=== PATIENT | female | born 1950 | race Caucasian/White ===

== ENCOUNTER → 2017-04-23 | Outpatient (CLI) | payer OTHER ==
[~2017-04-23] MED LIST: CETI10TA84 PO; ERGO1CAP35 PO; NIFE60TA57 PO; POTA10CA28 PO; VALA1TAB PO
== END | disposition home or self-care (01) ==
LOC: C.PAPS 14:54
PROVIDERS: ATTEND Obstetrics & Gynecology
DX: Z12.4 Encounter for screening for malignant neoplasm of cervix (principal)

== ENCOUNTER → 2017-05-30 | Outpatient (CLI) | payer OTHER ==
--- NOTE | 2017-05-31 07:53 | MAMMOGRAPHY REPORT ---
BILATERAL DIGITAL SCREENING MAMMOGRAM TOMOSYNTHESIS WITH CAD: 05/30/2017 CLINICAL HISTORY: Routine screening. Patient has no complaints. TECHNIQUE: Breast tomosynthesis in addition to standard 2D mammography was performed. Current study was also evaluated with a Computer Aided Detection (CAD) system. COMPARISON: Comparison is made to exams dated: 12/01/2015 ultrasound, 12/01/2015 mammogram, 11/17/2015 mammogram, 11/15/2014 ultrasound, 11/15/2014 mammogram, and 11/24/2013 mammogram - [facility]. BREAST COMPOSITION: The tissue of both breasts is heterogeneously dense, which may obscure small mas ses. FINDINGS: No suspicious masses, calcifications, or areas of architectural distortion are noted in ei ther breast. There has been no significant interval change compared to prior exams. Bilateral benign -appearing calcifications are not significantly changed. IMPRESSION: ACR BI-RADS CATEGORY 2: BENIGN There is no mammographic evidence of malignancy. A 1 year screening mammogram is recommended. The pa tient will receive written notification of the results. Approximately 10% of breast cancers are not detected with mammography. A negative mammographic report should not delay biopsy if a clinically suggestive mass is present. Briana Maldonado M.D. ah/:05/30/2017 15:16:05 Certified Professional Ergonomist: Beatrice DONAHUE(Jodi)(Zoraida), [facility] letter sent: Normal 1/2 BI-RADS Code: ACR BI-RADS Category 2: Benign
== END | disposition home or self-care (01) ==
LOC: C.MAMM 14:35
PROVIDERS: ATTEND Obstetrics & Gynecology
DX: Z12.31 Encounter for screening mammogram for malignant neoplasm of breast (principal); Z13.820 Encounter for screening for osteoporosis; M85.852 Other specified disorders of bone density and structure, left thigh; M85.851 Other specified disorders of bone density and structure, right thigh

== ENCOUNTER 2017-06-14 17:47 | Emergency (ER) | payer OTHER ==
[~2017-06-14] VITALS: Ht 162.6 cm; Wt 58.6 kg
[2017-06-14 17:59] VITALS: TEMP 36.6; Ht 162.6 cm; Wt 58.6 kg
--- NOTE | 2017-06-14 18:37 | EMERGENCY ROOM VISIT NOTE ---
History Report prepared by Rich: Marge victoria Under the Supervision of: Dr. Ramón Still M.D. First contact with patient: 18:18 Chief Complaint: LEG PAIN,LEG INJURY Stated Complaint: LEFT LEG VEINS SHOWING REDNESS WITH NODULES History of Present Illness The patient is a 67 year old female who presents to the Emergency Room with complaints of constant left leg pain beginning 3 days ago. The patient states that she has a history of DVT and last had one about 6 years ago. She notes that she was on control and they thought she got the blood clot due to the estrogen she was taking. She reports that she noticed her left leg was red 3 days ago and has had some left leg and foot swelling since then. The patient complains of increased left foot swelling, leg redness, and vein swelling. She denies any chest pain, shortness of breath, recent trips, recent surgery, fever , chills, cough, congestion, nausea, vomiting. The patient notes that she is not on any blood thinners. Source of History: patient Onset: 3 days ago Position: leg (left) Quality: other (swelling) Timing: constant Associated Symptoms: No fevers, No chills, No cough, No chest pain, No SOB, No nausea, No vomiting Note: The patient complains of increased left foot swelling, leg redness, and vein swelling. She denies any recent trips, recent surgery, congestion. Review of Systems See HPI for pertinent positives and negatives. A total of ten systems were reviewed and were otherwise negative. Past Medical & Surgical Medical Problems: (1) Blood clot in vein Family History No pertinent family history stated. Social History Smoking Status: Never Smoker Housing Status: lives with family Occupation Status: employed Current/Historical Medications Scheduled Cephalexin Monohydrate (Cephalexin), 500 MG PO QID Cetirizine (Zyrtec), 10 MG PO DAILY Cholecalciferol (Vitamin D 1000 Unit), 1,000 INTER.UNIT PO DAILY Magnesium Oxide (Mg Supplement (Magnesium), 1 TAB PO DAILY Mupirocin (Bactroban 2% Oint), 1 APPLN TOP UD Nifedipine (Nifedipine Er), 90 MG PO DAILY Potassium Chloride Microencaps (Potassium Chloride Cr), 10 MEQ PO DAILY Scheduled PRN Valacyclovir Hcl (Valtrex), 2 TABS PO [id number] 2 DAYS PRN for FOR BREAKOUTS Allergies Coded Allergies: Estrogens (Verified Allergy, Mild, `, 07/04/14) Bacitracin (Verified Allergy, Unknown, POLYSPORIN, 07/04/14) Polymyxin B (Verified Allergy, Unknown, POLYSPORIN, 07/04/14) Sulfa Drugs (Verified Adverse Reaction, Unknown, `, 07/04/14) Sulfamethoxazole (Verified Adverse Reaction, Unknown, `, 07/04/14) Trimethoprim (Verified Adverse Reaction, Unknown, `, 07/04/14) Physical Exam Vital Signs Date Time Temp Pulse Resp B/P (MAP) Pulse Ox O2 Delivery O2 Flow Rate FiO2 06/14/17 22:29 66 18 100/66 99 06/14/17 21:44 74 18 99 Room Air 06/14/17 20:08 61 18 113/71 99 Room Air 06/14/17 18:46 63 20 115/73 97 Room Air 06/14/17 17:59 36.6 77 18 141/82 95 Room Air Physical Exam GENERAL: Awake, alert, well-appearing, in no distress HENT: Normocephalic, atraumatic. Oropharynx unremarkable. EYES: Normal conjunctiva. Sclera non-icteric. NECK: Supple. No nuchal rigidity. FROM. No JVD. RESPIRATORY: Clear to auscultation. CARDIAC: Regular rate, normal rhythm. Extremities warm and well perfused. Pulses equal. ABDOMEN: Soft, non-distended. No tenderness to palpation. No rebound or guarding. No masses. RECTAL: Deferred. MUSCULOSKELETAL: Chest examination reveals no tenderness. The back is symmetrical on inspection without obvious abnormality. There is no CVA tenderness to palpation. No joint edema. LOWER EXTREMITIES: Bilateral LE varicose veins, left LE has mild swelling in the distal medial thigh with mild redness and tenderness, no crepitus, 1+ edema , distal PMS intact. NEURO: Normal sensorium. No sensory or motor deficits noted. SKIN: No rash or jaundice noted. Medical Decision & Procedures ER Provider Diagnostic Interpretation: Radiology results as stated below per my review and radiologist interpretation: LEFT LOWER EXTREMITY VENOUS DOPPLER FINDINGS: There is normal compressibility, flow, and augmentation within the left lower extremity deep venous system. The left greater saphenous vein from the distal thigh to the mid calf is thrombosed with a a few thrombosis branches of the greater saphenous vein. IMPRESSION: No DVT within the left lower extremity. Left greater saphenous vein thrombosis consistent with a superficial thrombosis. Electronically signed by: Lyle Matos M.D. 06/14/2017 7:57 PM Dictated Date/Time: 06/14/2017 7:56 PM Laboratory Results 06/14/17 18:37 Red Blood Count 4.30, Mean Corpuscular Volume 89.8, Mean Corpuscular Hemoglobin 30.5, Mean Corpuscular Hemoglobin Concent 33.9, Mean Platelet Volume 10.3, Neutrophils (%) (Auto) 52.4, Lymphocytes (%) (Auto) 35.8, Monocytes (%) (Auto) 8.3, Eosinophils (%) (Auto) 3.1, Basophils (%) (Auto) 0.3, Neutrophils # (Auto) 3.51, Lymphocytes # (Auto) 2.40, Monocytes # (Auto) 0.56, Eosinophils # (Auto) 0.21, Basophils # (Auto) 0.02 06/14/17 18:37 Test 06/14/17 18:37 White Blood Count 6.71 K/uL (4.8-10.8) Red Blood Count 4.30 M/uL (4.2-5.4) Hemoglobin 13.1 g/dL (12.0-16.0) Hematocrit 38.6 % (37-47) Mean Corpuscular Volume 89.8 fL (80-100) Mean Corpuscular Hemoglobin 30.5 pg (25-34) Mean Corpuscular Hemoglobin Concent 33.9 g/dl (32-36) Platelet Count 252 K/uL (130-400) Mean Platelet Volume 10.3 fL (7.4-10.4) Neutrophils (%) (Auto) 52.4 % Lymphocytes (%) (Auto) 35.8 % Monocytes (%) (Auto) 8.3 % Eosinophils (%) (Auto) 3.1 % Basophils (%) (Auto) 0.3 % Neutrophils # (Auto) 3.51 K/uL (1.4-6.5) Lymphocytes # (Auto) 2.40 K/uL (1.2-3.4) Monocytes # (Auto) 0.56 K/uL (0.11-0.59) Eosinophils # (Auto) 0.21 K/uL (0-0.5) Basophils # (Auto) 0.02 K/uL (0-0.2) RDW Standard Deviation 47.3 fL (36.4-46.3) RDW Coefficient of Variation 14.5 % (11.5-14.5) Immature Granulocyte % (Auto) 0.1 % Immature Granulocyte # (Auto) 0.01 K/uL (0.00-0.02) Anion Gap 7.0 mmol/L (3-11) Est Creatinine Clear Calc Drug Dose 70.2 ml/min Estimated GFR () 105.9 Estimated GFR (Non- 91.4 BUN/Creatinine Ratio 22.9 (10-20) Calcium Level 9.3 mg/dl (8.5-10.1) Laboratory results reviewed by me ED Course 1817: The patient was evaluated in room C1. A complete history and physical exam was performed. 2001: I reevaluated and updated the patient. 2010: I reevaluated the patient. Discussed results and discharge instructions: She verbalized understanding and agreement. The patient is ready for discharge. Medical Decision I reviewed the patient's past medical history, medications, and the nursing notes as described above. The patient's presentation and history were concerning for superficial thrombophlebitis, DVT, musculoskeletal strain, cellulitis. The patient is a 67 y/o woman with remote pmhx of provoked DVT previously on coumadin who presents to the ED with left leg swelling and pain per HPI. On arrival the patient is in NAD, AFVSS. On exam left lower medial thigh has mild swelling and redness with mild ttp. Labs unremarkable. US shows greater saphenous vein thrombosis c/w superficial thrombosis but no DVT. Plan for conservative management with NSAIDS, compresses, and repeat US in 1 week. Findings and plan for follow-up reviewed with patient. Patient agreeable and d/c 'd per discharge instructions. Medication Reconcilliation Current Medication List: was personally reviewed by me Blood Pressure Screening Patient's blood pressure: Elevated blood pressure Blood pressure disposition: Elevated BP felt to be situational Impression Primary Impression: Superficial thrombophlebitis Scribe Attestation The scribe's documentation has been prepared under my direction and personally reviewed by me in its entirety. I confirm that the note above accurately reflects all work, treatment, procedures, and medical decision making performed by me. Departure Information Dispostion Home / Self-Care Referrals Marion Méndez D.O. (PCP) Patient Instructions ED Phlebitis Superficial, [facility] Additional Instructions Please follow up with your primary care physician in the next 1-3 days for re- evaluation to reschedule a repeat ultrasound of her leg within 1 week. You have superficial clots in your veins but no deep vein clots. Otherwise, your exam, ultrasound, and lab results did not show signs of an emergent condition at this time. Elevate your leg. Apply warm or cool compresses. NSAIDs as directed. For example, you may take a full dose aspirin (325mg) twice daily as needed. Dereje bandage for comfort. Maintain activity level with ambulation. Return to the emergency department for worsening symptoms as described in the accompanying instructions.
[2017-06-14 19:06] LABS: BASO % 0.3 %; BASO ABS # 0.02 K/uL (0-0.2); COMPLETE YES; EOS % 3.1 %; HEMATOCRIT 38.6 % (37-47); IG% 0.1 %; LYMPH % 35.8 %; MEAN CELL VOLUME 89.8 fL (80-100); MEAN CORPUSCULAR HEMOGLOBIN 30.5 pg (25-34); MEAN CORPUSCULAR HGB CONC 33.9 g/dl (32-36); MEAN PLATELET VOLUME 10.3 fL (7.4-10.4); MONO % 8.3 %; NEUT % 52.4 %; PLATELET COUNT 252 K/uL (130-400); WHITE BLOOD COUNT 6.71 K/uL (4.8-10.8)
[2017-06-14 19:16] LABS: BUN/CREATININE RATIO 22.9 (10-20); CALCIUM 9.3 mg/dl (8.5-10.1); CREATININE 0.69 mg/dl (0.60-1.20)
[2017-06-14 19:22] LABS: POTASSIUM 3.6 mmol/L (3.5-5.1)
[2017-06-14] MEDS ORDERED: VALA1TAB31 PO (19:58)
[2017-06-14] MEDS ORDERED: NIFE90TA27 PO (19:58)
[2017-06-14] MEDS ORDERED: BCTROWC TOP (19:58)
[2017-06-14] MEDS ORDERED: CHOL100027 PO (19:58)
[2017-06-14] MEDS ORDERED: KFL500HP PO (19:58)
[2017-06-14] MEDS ORDERED: POTA10TA79 PO (19:58)
[2017-06-14] MEDS ORDERED: MAGN500T4 PO (19:58)
--- NOTE | 2017-06-14 19:58 | DIAGNOSTIC IMAGING REPORT ---
LEFT LOWER EXTREMITY VENOUS DOPPLER HISTORY: Left leg pain and swelling COMPARISON STUDY: None. FINDINGS: There is normal compressibility, flow, and augmentation within the left lower extremity deep venous system. The left greater saphenous vein from the distal thigh to the mid calf is thrombosed with a a few thrombosis branches of the greater saphenous vein. IMPRESSION: No DVT within the left lower extremity. Left greater saphenous vein thrombosis consistent with a superficial thrombosis. Electronically signed by: Lyle Matos M.D. 06/14/2017 7:57 PM Dictated Date/Time: 06/14/2017 7:56 PM
[2017-06-14 22:29] VITALS: BP 100/66; PULSE 66; O2SAT 99
== END 2017-06-14 22:30 | disposition home or self-care (01) ==
LOC: C.EDB 17:48 → C.EDC 22:30
DX: I80.02 Phlebitis and thrombophlebitis of superficial vessels of left lower extremity (principal); Z86.718 Personal history of other venous thrombosis and embolism; Z79.899 Other long term (current) drug therapy; Z88.2 Allergy status to sulfonamides; Z88.8 Allergy status to other drugs, medicaments and biological substances

== ENCOUNTER → 2017-06-24 | Outpatient (CLI) | payer OTHER ==
[~2017-06-24] MED LIST changes: +BCTROWC TOP; +CHOL100027 PO; -ERGO1CAP35 PO; +KFL500HP PO; +MAGN500T4 PO; -NIFE60TA57 PO; +NIFE90TA27 PO; -POTA10CA28 PO; +POTA10TA79 PO; -VALA1TAB PO; +VALA1TAB31 PO
--- NOTE | 2017-06-24 14:39 | DIAGNOSTIC IMAGING REPORT ---
VENOUS DOPP LOWER EXT UNILAT HISTORY: 67 years-old Female THROMBIS OF SAPHENOUS VEIN ON L SIDE follow-up study in a patient with superficial venous thrombosis. COMPARISON: Duplex study of the left lower extremity 06/14/2017 TECHNIQUE: Multiple real-time sonographic images of the left lower extremity deep venous structures were obtained assessing grayscale appearance, color and spectral flow. FINDINGS: There is normal flow, compressibility, phasicity, compressibility and augmentation of the left lower extremity deep venous structures. Nonocclusive thrombus is seen within the greater saphenous vein, 1.7 cm from the confluence with the common femoral vein. Superficial thrombus noted within varicosities of the left calf. IMPRESSION: 1. No sonographic evidence of deep venous thrombosis. 2. Superficial venous thrombosis in seen involving the greater saphenous vein as well as within varicosities of the left calf. The above report was generated using voice recognition software. It may contain grammatical, syntax or spelling errors. Electronically signed by: Tahir Fournier M.D. 06/24/2017 2:38 PM Dictated Date/Time: 06/24/2017 2:32 PM
== END | disposition home or self-care (01) ==
LOC: C.ULTR 13:52
PROVIDERS: ATTEND Family Medicine
DX: I82.812 Embolism and thrombosis of superficial veins of left lower extremity (principal); I83.90 Asymptomatic varicose veins of unspecified lower extremity

== ENCOUNTER 2017-12-06 11:36 | Emergency (ER) | payer OTHER ==
[~2017-12-06] VITALS: Ht 162.6 cm; Wt 58.0 kg
[2017-12-06 11:53] VITALS: TEMP 36.8; Ht 162.6 cm; Wt 58.0 kg
[2017-12-06] MEDS ORDERED: MECLIZINE HCL 25 MG TAB PO STA (12:35)
--- NOTE | 2017-12-06 12:39 | EMERGENCY ROOM VISIT NOTE ---
History Report prepared by Rich: Cl Rivera Under the Supervision of: Dr. Miller Cardona M.D. First contact with patient: 12:04 Chief Complaint: DIZZY Stated Complaint: POOR BALANCE, DIZZINESS Nursing Triage Summary: Dizziness since this morning. History of Present Illness The patient is a 67 year old female who presents to the Emergency Room with complaints of constant dizziness that began at 0930. The patient states that whenever she stands up, she feels as if she is dizzy and off balance. She reports that she has also been nauseous due to the dizziness. The patient states that she felt anxious about being dizzy, which caused her to report to the ED. The patient states she feels palpitations and "can feel my heart racing ". She reports that she has experienced similar dizziness in the past. The patient denies taking medications for her symptoms, chest pain, shortness of breath, recent prolonged travel, a cough, taking hormone pills, headache, and falling from her dizziness. Source of History: patient Onset: 0930 Position: other (global) Quality: other (off balance) Timing: constant Modifying Factors (Worsening): other (standing up) Associated Symptoms: + nausea, No headache, No cough, No chest pain, No SOB Note: Associated symptoms: tachycardia, palpitations Review of Systems See HPI for pertinent positives and negatives. A total of ten systems were reviewed and were otherwise negative. Past Medical & Surgical Medical Problems: (1) Blood clot in vein (2) Fungal infection of skin (3) Vertigo Family History Patient reports no known family medical history. Social History Smoking Status: Never Smoker Housing Status: lives with family Occupation Status: employed Current/Historical Medications Scheduled Cetirizine (Zyrtec), 10 MG PO DAILY Cholecalciferol (Vitamin D 1000 Unit), 1,000 INTER.UNIT PO DAILY Magnesium Oxide (Mg Supplement (Magnesium), 1 TAB PO DAILY Mupirocin (Bactroban 2% Oint), 1 APPLN TOP UD Nifedipine (Nifedipine Er), 90 MG PO DAILY Potassium Chloride Microencaps (Potassium Chloride Cr), 10 MEQ PO DAILY Scheduled PRN Meclizine Hcl (Meclizine Hcl), 1 TAB OR TID PRN for Dizziness or Vertigo Valacyclovir Hcl (Valtrex), 2 TABS PO [id number] 2 DAYS PRN for FOR BREAKOUTS Allergies Coded Allergies: Estrogens (Verified Allergy, Mild, `, 12/06/17) Bacitracin (Verified Allergy, Unknown, POLYSPORIN, 12/06/17) Polymyxin B (Verified Allergy, Unknown, POLYSPORIN, 12/06/17) Sulfa Drugs (Verified Adverse Reaction, Unknown, `, 12/06/17) Sulfamethoxazole (Verified Adverse Reaction, Unknown, `, 12/06/17) Trimethoprim (Verified Adverse Reaction, Unknown, `, 12/06/17) Physical Exam Vital Signs Date Time Temp Pulse Resp B/P (MAP) Pulse Ox O2 Delivery O2 Flow Rate FiO2 12/06/17 14:03 72 16 106/60 97 12/06/17 13:07 71 16 132/78 12/06/17 12:42 99 Room Air 12/06/17 12:42 99 Room Air 12/06/17 12:36 74 12/06/17 12:02 145/82 141/84 129/83 12/06/17 11:53 36.8 78 16 126/75 99 Room Air Physical Exam Physical Exam GENERAL: She is oriented to person, place, and time. She appears well- developed and well-nourished. She does not appear distressed. ____ HENT: Exam performed. Head: Normocephalic and atraumatic. Right Ear: External ear normal. No mastoid tenderness. Left Ear: External ear normal. No mastoid tenderness. Mouth/Throat: The oropharynx is clear and moist. No trismus in the jaw. No dental abscesses or uvula swelling. No oropharyngeal exudate or tonsillar abscesses. ____ EYES: Conjunctivae and EOM are normal. Pupils are equal, round, and reactive to light. Right eye exhibits no discharge. Left eye exhibits no discharge. No scleral icterus. No nystagmus bilaterally. NECK: Normal range of motion. Neck supple. No JVD present. No spinous process tenderness present. No carotid bruit present. No rigidity. No tracheal deviation and normal range of motion present. No Brudzinski's sign and no Kernig 's sign noted. ____ CV: Normal rate, regular rhythm, normal heart sounds and intact distal pulses. There is no peripheral edema. Palpable radial pulses bue. ____ PULM/CHEST: Effort normal and breath sounds normal. No respiratory distress. No stridor. She has no wheezes. She has no rales. Chest Wall: She exhibits no tenderness. ____ ABD: The abdomen is soft. Bowel sounds are normal. She has no distension. No mass is present. There is no tenderness. There is no rebound, no guarding, no Mosley's sign and no tenderness at McBurney's point. Rovsig negative MUSC/SKEL: Normal range of motion. There is no peripheral edema, tenderness or deformity. LYMPH: No cervical adenopathy. ____ NEURO: She is alert and oriented to person, place, and time. She has normal strength. No cranial nerve deficit or sensory deficit. Coordination and gait normal. GCS eye subscore is 4. GCS verbal subscore is 5. GCS motor subscore is 6. Cerebellar tests wnl. Mild left sided facial droop. Baseline per the patient and family. They state she has had it since . ____ SKIN: Skin is warm and dry. She is not diaphoretic. ____ PSYCH: She has a normal mood and affect. Her behavior is normal. Judgment and thought content normal. ____ Medical Decision & Procedures ER Provider Diagnostic Interpretation: Radiology results as stated below per my review and radiologist interpretation: HEAD CT NONCONTRAST CT DOSE: 614.27 mGy.cm HISTORY: dizziness TECHNIQUE: Multiaxial CT images of the head were performed without the use of intravenous contrast. Automated exposure control was utilized for this study. A dose lowering technique was utilized adhering to the principles of ALARA. Comparison: Brain MRI 05/22/2017. Findings: The paranasal sinuses and mastoid air cells are clear. The calvarium and skull base are intact. The ventricles and sulci are within normal limits. There is no mass, hematoma, midline shift, or acute infarct. Impression: No acute intracranial abnormality. Electronically signed by: Lyle Matos M.D. 12/06/2017 1:37 PM Dictated Date/Time: 12/06/2017 12:57 PM CHEST 2 VIEWS ROUTINE CLINICAL HISTORY: 67 years-old Female presenting with palpitations, poor balance, dizziness. TECHNIQUE: PA and lateral views of the chest were obtained. COMPARISON: None. FINDINGS: Cardiomediastinal silhouette normal. Lungs and pleural spaces clear. Osseous structures normal. Upper abdomen normal. IMPRESSION: 1. No acute cardiopulmonary disease. Electronically signed by: Blane Salinas M.D. 12/06/2017 1:08 PM Dictated Date/Time: 12/06/2017 1:07 PM Laboratory Results 12/06/17 12:15 Red Blood Count 4.75, Mean Corpuscular Volume 86.5, Mean Corpuscular Hemoglobin 29.7, Mean Corpuscular Hemoglobin Concent 34.3, Mean Platelet Volume 9.8, Neutrophils (%) (Auto) 71.9, Lymphocytes (%) (Auto) 21.3, Monocytes (%) (Auto) 5.6, Eosinophils (%) (Auto) 0.8, Basophils (%) (Auto) 0.2, Neutrophils # (Auto) 4.38, Lymphocytes # (Auto) 1.30, Monocytes # (Auto) 0.34, Eosinophils # (Auto) 0.05, Basophils # (Auto) 0.01 12/06/17 12:15 Test 12/06/17 12:15 White Blood Count 6.09 K/uL (4.8-10.8) Red Blood Count 4.75 M/uL (4.2-5.4) Hemoglobin 14.1 g/dL (12.0-16.0) Hematocrit 41.1 % (37-47) Mean Corpuscular Volume 86.5 fL (80-100) Mean Corpuscular Hemoglobin 29.7 pg (25-34) Mean Corpuscular Hemoglobin Concent 34.3 g/dl (32-36) Platelet Count 241 K/uL (130-400) Mean Platelet Volume 9.8 fL (7.4-10.4) Neutrophils (%) (Auto) 71.9 % Lymphocytes (%) (Auto) 21.3 % Monocytes (%) (Auto) 5.6 % Eosinophils (%) (Auto) 0.8 % Basophils (%) (Auto) 0.2 % Neutrophils # (Auto) 4.38 K/uL (1.4-6.5) Lymphocytes # (Auto) 1.30 K/uL (1.2-3.4) Monocytes # (Auto) 0.34 K/uL (0.11-0.59) Eosinophils # (Auto) 0.05 K/uL (0-0.5) Basophils # (Auto) 0.01 K/uL (0-0.2) RDW Standard Deviation 47.5 fL (36.4-46.3) RDW Coefficient of Variation 14.9 % (11.5-14.5) Immature Granulocyte % (Auto) 0.2 % Immature Granulocyte # (Auto) 0.01 K/uL (0.00-0.02) Anion Gap 9.0 mmol/L (3-11) Est Creatinine Clear Calc Drug Dose 60.6 ml/min Estimated GFR () 89.7 Estimated GFR (Non- 77.4 BUN/Creatinine Ratio 28.5 (10-20) Calcium Level 9.1 mg/dl (8.5-10.1) Magnesium Level 2.2 mg/dl (1.8-2.4) Troponin I < 0.015 ng/ml (0-0.045) Laboratory results reviewed by me Medications Administered Medications (Trade) Dose Ordered Sig/Emilio Route Start Time Stop Time Status Last Admin Dose Admin Meclizine HCl (Antivert Tab) 25 mg NOW STAT PO 12/06/17 12:35 12/06/17 12:37 DC 12/06/17 13:07 25 MG Potassium Chloride (Klor-Con M10) 40 meq NOW STAT PO 12/06/17 13:14 12/06/17 13:15 DC 12/06/17 13:33 40 MEQ ECG Per My Interpretation Indication: palpitations Rate (beats per minute): 64 Rhythm: normal sinus Findings: other (MA QRS and QTS are within normal limits, no St depression.) ED Course 1225: The patient was evaluated in room B02. A complete history and physical exam was performed. 1235: Ordered Antivert Tab 25 mg PO. 1314: Ordered Potassium Chloride 40 meq PO. 1350: I reevaluated the patient and she is ambulating without difficulty. Her vitals are stable post antivert. Her labs and imaging are wnl with exception of potassium of 3.2, which was replaced in ED. She was discharged with antivert and a follow up with her PCP. DISCHARGE - Plan of care discussed with patient and questions answered. The patient was given both verbal and printed discharge instructions. The patient verbalized understanding and ability to comply. The patient is to seek outpatient follow up as noted in the discharge instructions. The patient verbalized understanding and ability to comply. The patient is discharged in stable condition. The patient was instructed to return for worsening symptoms. Medical Decision vitals are stable post antivert. Her labs and imaging are wnl with exception of potassium of 3.2, which was replaced in ED. She was discharged with antivert and a follow up with her PCP. DISCHARGE - Plan of care discussed with patient and questions answered. The patient was given both verbal and printed discharge instructions. The patient verbalized understanding and ability to comply. The patient is to seek outpatient follow up as noted in the discharge instructions. The patient verbalized understanding and ability to comply. The patient is discharged in stable condition. The patient was instructed to return for worsening symptoms. Medication Reconcilliation Current Medication List: was personally reviewed by me Blood Pressure Screening Patient's blood pressure: Normal blood pressure Impression Primary Impression: Vertigo Scribe Attestation The scribe's documentation has been prepared under my direction and personally reviewed by me in its entirety. I confirm that the note above accurately reflects all work, treatment, procedures, and medical decision making performed by me. The chart was completed utilizing [employer] Speech voice recognition software. Grammatical errors, random word insertions, pronoun errors, and incomplete sentences are an occasional consequence of this system due to software limitations, ambient noise, and hardware issues. Any formal questions or concerns about the content, text, or information contained within the body of this dictation should be directly addressed to the physician for clarification. Departure Information Dispostion Home / Self-Care Prescriptions Meclizine Hcl (MECLIZINE HCL) 12.5 Mg Tab 1 TAB OR TID Y for Dizziness or Vertigo, #30 TABS Prov: Miller Cardona M.D. 12/06/17 Referrals Marion Méndez D.O. (PCP) Forms HOME CARE DOCUMENTATION FORM, IMPORTANT VISIT INFORMATION Patient Instructions ED BPV Vertigo, [facility]
[2017-12-06 12:42] VITALS: O2SAT 99
[2017-12-06 12:44] LABS: BASO % 0.2 %; BASO ABS # 0.01 K/uL (0-0.2); EOS % 0.8 %; EOS ABS # 0.05 K/uL (0-0.5); HEMATOCRIT 41.1 % (37-47); HEMOGLOBIN 14.1 g/dL (12.0-16.0); IG# 0.01 K/uL (0.00-0.02); LYMPH % 21.3 %; MEAN CELL VOLUME 86.5 fL (80-100); MEAN CORPUSCULAR HEMOGLOBIN 29.7 pg (25-34); MEAN CORPUSCULAR HGB CONC 34.3 g/dl (32-36); MEAN PLATELET VOLUME 9.8 fL (7.4-10.4); MONO % 5.6 %; MONO ABS # 0.34 K/uL (0.11-0.59); NEUT % 71.9 %; NEUT ABS # 4.38 K/uL (1.4-6.5); PLATELET COUNT 241 K/uL (130-400); RED CELL DISTRIBUTION WIDTH CV 14.9 % (11.5-14.5); RED CELL DISTRIBUTION WIDTH SD 47.5 fL (36.4-46.3); WHITE BLOOD COUNT 6.09 K/uL (4.8-10.8)
[2017-12-06 12:57] LABS: BLOOD UREA NITROGEN 23 mg/dl (7-18); CALCIUM 9.1 mg/dl (8.5-10.1); CARBON DIOXIDE 24 mmol/L (21-32); GLUCOSE 117 mg/dl (70-99); POTASSIUM 3.2 mmol/L (3.5-5.1); SODIUM 139 mmol/L (136-145)
--- NOTE | 2017-12-06 13:09 | DIAGNOSTIC IMAGING REPORT ---
CHEST 2 VIEWS ROUTINE CLINICAL HISTORY: 67 years-old Female presenting with palpitations, poor balance, dizziness. TECHNIQUE: PA and lateral views of the chest were obtained. COMPARISON: None. FINDINGS: Cardiomediastinal silhouette normal. Lungs and pleural spaces clear. Osseous structures normal. Upper abdomen normal. IMPRESSION: 1. No acute cardiopulmonary disease. Electronically signed by: Blane Salinas M.D. 12/06/2017 1:08 PM Dictated Date/Time: 12/06/2017 1:07 PM
[2017-12-06] MEDS ORDERED: POTASSIUM CHLORIDE 10 MEQ TABCR PO STA (13:14)
--- NOTE | 2017-12-06 13:38 | DIAGNOSTIC IMAGING REPORT ---
HEAD CT NONCONTRAST CT DOSE: 614.27 mGy.cm HISTORY: dizziness TECHNIQUE: Multiaxial CT images of the head were performed without the use of intravenous contrast. Automated exposure control was utilized for this study. A dose lowering technique was utilized adhering to the principles of ALARA. Comparison: Brain MRI 05/22/2017. Findings: The paranasal sinuses and mastoid air cells are clear. The calvarium and skull base are intact. The ventricles and sulci are within normal limits. There is no mass, hematoma, midline shift, or acute infarct. Impression: No acute intracranial abnormality. Electronically signed by: Lyle Matos M.D. 12/06/2017 1:37 PM Dictated Date/Time: 12/06/2017 12:57 PM
[2017-12-06] MEDS ORDERED: MECL1TAB40 OR (13:52)
[2017-12-06 14:03] VITALS: BP 106/60; PULSE 72; O2SAT 97
== END 2017-12-06 14:04 | disposition home or self-care (01) ==
LOC: C.EDB 11:37
DX: R42 Dizziness and giddiness (principal); Z79.899 Other long term (current) drug therapy; Z88.8 Allergy status to other drugs, medicaments and biological substances; Z88.2 Allergy status to sulfonamides

== ENCOUNTER 2024-06-13 10:29 | Inpatient (IN) ==
[2024-06-13 10:59] LABS: iSTAT Creatinine 0.7 mg/dl (0.6-1.3); iSTAT Ionized Calcium 0.95 mmol/l (1.12-1.32)
[2024-06-13] MEDS: OPTIRAY 320 125ml IV ONE (11:15)
--- NOTE | 2024-06-13 11:16 | XRay Report ---
XR pelvis 1-2V routine CLINICAL HISTORY: fall COMPARISON: Sacrum and coccyx radiographs September 10, 2013. FINDINGS: The bladder may be distended. There are no fractures within the pelvis or hips. There is m ild bilateral hip osteophytosis IMPRESSION: 1. No fractures within the pelvis or hips. 2. Suspected bladder distention. ACT 112: Negative or not required by law. Electronically signed by: Jimi Jaramillo M.D. 06/13/2024 11:15 AM
[2024-06-13] MEDS: CALCIUM GLUCONATE 1000 MG/60 ML NSS IV ONE (11:17)
[2024-06-13] MEDS: CALCIUM GLUCONATE 1,000 MG/60 ML BAG IV STA (11:17)
[2024-06-13] MEDS: SODIUM CHLORIDE 0.9% 1,000 ML IV ONE (11:17)
--- NOTE | 2024-06-13 11:18 | XRay Report ---
XR chest 1V portable CLINICAL HISTORY: fall COMPARISON STUDY: Chest radiograph and chest CT February 04, 2021. FINDINGS: There is no pneumothorax. There is mild cardiomegaly. Interstitial thickening is noted. Tc ateral perihilar prominence is symmetric. Moderate right and small left pleural effusions are present . IMPRESSION: 1. No pneumothorax. 2. Moderate right and small left pleural effusions with associated bibasilar opacities. 3. Interstitial pulmonary edema. ACT 112: Negative or not required by law. Electronically signed by: Jimi Jaramillo M.D. 06/13/2024 11:17 AM
--- NOTE | 2024-06-13 11:20 | XRay Report ---
XR femur RT 2V routine CLINICAL HISTORY: trauma COMPARISON: None FINDINGS: Alignment of the right hip and right knee is anatomic. There are no fractures within the r ight femur. There are no osseous lesions. There is mild right hip osteoarthritis. IMPRESSION: No right femoral fractures. ACT 112: Negative or not required by law. Electronically signed by: Jimi Jaramillo M.D. 06/13/2024 11:19 AM
--- NOTE | 2024-06-13 11:21 | XRay Report ---
XR femur LT 2V routine CLINICAL HISTORY: trauma COMPARISON: None FINDINGS: Alignment of the left hip and left knee is anatomic. There are no left femoral fractures. There are no osseous lesions. Mild left hip osteoarthritis. IMPRESSION: No left femoral fractures. ACT 112: Negative or not required by law. Electronically signed by: Jimi Jaramillo M.D. 06/13/2024 11:19 AM
--- NOTE | 2024-06-13 11:26 | CT Scan Report ---
CT OF THE HEAD WITHOUT CONTRAST CLINICAL HISTORY: trauma COMPARISON STUDY: MRI of the brain May 22, 2017. Head CT May 10, 2022. TECHNIQUE: Helical axial images of the head were obtained without IV contrast. Automated exposure con trol was utilized for the study. A dose lowering technique was utilized adhering to the principles o f ALARA. FINDINGS: No acute intracranial hemorrhage, midline shift or mass effect is present. White matter hyp odensity suggests small vessel disease. The ventricular system is unremarkable. The basal cisterns ar e patent. No extra-axial collections are present. There are no findings to suggest acute dural sinus thrombosis or acute territorial infarct. There are no calvarial fractures. There are small air-fluid levels within the sphenoid sinuses. IMPRESSION: 1. No acute intracranial findings. 2. No calvarial fractures. ACT 112: Negative or not required by law. Electronically signed by: Jimi Jaramillo M.D. 06/13/2024 11:25 AM
--- NOTE | 2024-06-13 11:28 | CT Scan Report ---
CT OF THE CERVICAL SPINE WITHOUT CONTRAST CLINICAL HISTORY: trauma COMPARISON STUDY: CTA of the neck May 10, 2022. TECHNIQUE: Helical axial images of the cervical spine were obtained without IV contrast. Sagittal a nd coronal reconstructions were viewed. Automated exposure control was utilized for the study. A do se lowering technique was utilized adhering to the principles of ALARA. FINDINGS: Alignment of the cervical spine is anatomic. Vertebral body heights are maintained. No acut e cervical spine fracture or subluxation is present. There is no prevertebral edema. Facet joints are intact. Moderate multilevel degenerative disc disease and facet arthrosis is present. IMPRESSION: No acute cervical spine fracture or subluxation. ACT 112: Negative or not required by law. Electronically signed by: Jimi Jaramillo M.D. 06/13/2024 11:27 AM
[2024-06-13 11:33] LABS: Base Excess VBG -1.3 mEq/L; HCO3 VBG 24 mmol/L; Oxygen Saturation VBG < 60.0 %; PCO2 VBG 40 mmHg (38-50); PO2 VBG 26 mmHg; pH VBG 7.38 (7.36-7.41)
--- NOTE | 2024-06-13 11:37 | Emergency Department Note ---
History of Present Illness General Chief complaint: Trauma Stated complaint: AMS, HYPOXIA Time Seen by Provider: 06/13/24 10:37 History of Present Illness Provider complaint: Found down 74-year-old female presents emergency department after being found down on the ground. The reported that police did a wellness check on her and found her lying on her floor of her home. They are unsure if she fell but the last time she was seen normal was 2 days ago. Patient was hypoxic for EMS. Home Medications Medication Instructions Recorded Confirmed Type aspirin 81 mg tablet,delayed 81 mg PO UD 09/22/20 06/13/24 History release cholecalciferol (vitamin D3) 25 25 mcg PO DAILY 09/22/20 06/13/24 History mcg (1,000 unit) capsule nifedipine 90 mg tablet,extended 90 mg PO QAM 10/20/20 06/13/24 History release potassium chloride 10 mEq 10 meq PO QAM 10/20/20 06/13/24 History capsule,extended release valacyclovir 1 gram tablet 2,000 mg PO Q12H PRN Cold Sores 10/20/20 06/13/24 History meclizine 25 mg tablet 25 mg PO TID PRN dizziness #20 tabs 09/22/21 06/13/24 Rx ascorbic acid (vitamin C) 500 mg 500 mg PO DAILY 11/18/22 06/13/24 History tablet (Vitamin C) calcium carbonate 500 mg PO DAILY 11/18/22 06/13/24 History cetirizine 10 mg tablet (Zyrtec) 10 mg PO DAILY PRN Other 11/18/22 06/13/24 History lactase 9,000 unit chewable tablet 9,000 unit PO AC PRN .Intolerance 11/18/22 06/13/24 History (Lactaid Fast Act) sennosides 8.6 mg tablet (senna) 8.6 mg PO UD 11/18/22 06/13/24 History nirmatrelvir 300 mg (150 mg 1 ea PO DIRECTED 06/13/24 06/13/24 History x2)-ritonavir 100 mg tablet,dose pack (Paxlovid) Allergies Allergy/AdvReac Type Severity Reaction Status Date / Time Estrogens Allergy Mild ` Verified 03/16/24 08:37 bacitracin Allergy Unknown POLYSPORIN Verified 03/16/24 08:37 polymyxin B Allergy Unknown POLYSPORIN Verified 03/16/24 08:37 Sulfa (Sulfonamide AdvReac Unknown ` Verified 03/16/24 08:37 Antibiotics) sulfamethoxazole AdvReac Unknown ` Verified 03/16/24 08:37 trimethoprim AdvReac Unknown ` Verified 03/16/24 08:37 Past Med/Surg History Problem List (Updated 06/13/24 @ 12:49 by Miller Cardona MD) Fall (Acute) Rhabdomyolysis (Acute) COVID-19 (Acute) Hypoxia (Acute) [employer] exam for high-risk Medicare patient Sensorineural hearing loss (SNHL) of both ears AD: mild HF SNHL, : mild to mod SNHL Chronic venous insufficiency of lower extremity (Chronic) Kyphosis Sensorineural hearing loss (SNHL) of left ear with unrestricted hearing of right ear Raynaud disease (Chronic) Status post endovenous radiofrequency ablation of saphenous vein (Chronic) Venous insufficiency (chronic) (peripheral) (Chronic) History of 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 Encounter for annual routine gynecological examination Allergic rhinitis (Acute) Atrophie racquel (Acute) Dermatitis, eczematoid (Acute) Dysplastic nevus (Acute) Fuchs' corneal dystrophy (Acute) Herpes simplex virus (HSV) infection (Acute) Lower back pain (Acute) Polyarthritis (Acute) Raynauds phenomenon (Acute) Rosacea (Acute) TMJ (temporomandibular joint syndrome) (Acute) Varicose veins of both lower extremities (Acute) Vitamin D deficiency (Acute) Left asymmetrical SNHL SNHL (sensorineural hearing loss) Fracture, sacrum/coccyx (Acute) Finger laceration (Acute) Fungal infection of skin Surgical History H/O inguinal hernia repair Hx of tonsillectomy S/P endometrial ablation H/O tubal ligation Family History Father Stroke Other Diabetes Social History Smoking Status: Unknown if ever smoked Tobacco Type: Cigarettes Do You Dip or Chew Tobacco: No; Hx Alcohol Use: No Hx Substance Use: No Preferred Language: Amharic Communication Ability: Effective Visual Impairment: Limited Hearing Ability: Use of Hearing Aid Beliefs That Will Affect Care: None marital status: Single Current Living Situation: Alone current occupational status: employed current occupation: [employer] associate How many Children do You have: 2 How many Children do You have Comment: one son lives locally that is able to assist as needed Feels Safe at Home: Yes during the past year weight has: remained stable Assistive Devices: Cane and Glasses Physical Exam Vital Signs Vital Signs - 24 hr 06/13/24 10:29 06/13/24 10:29 06/13/24 10:29 Temperature 36 C L 36 C L 36 C L Temperature Source Rectal Rectal Pulse Rate 78 78 Pulse Rate [Apical] 78 Pulse Rhythm Respiratory Rate 28 H 28 H 28 H Respiratory Effort / Characteristics Labored Labored Respiratory Depth Normal Normal Respiratory Pattern Regular Regular Blood Pressure 140/72 140/72 Blood Pressure [Left Arm] 140/72 Blood Pressure Mean 94 Blood Pressure Mean [Left Arm] 94 Pulse Oximetry 79 L 79 L 79 L Oxygen Delivery Method Room Air Room Air Non-rebreather Room Air Oxygen Flow Rate Fraction of Inspired Oxygen Sepsis Recent Fever Within 48 Hours No Sepsis New/Unexplained Change in Mental Status N/A Sepsis Action Taken by Nursing No Action Required Oxygen Flow Rate - Titration Pulse Oximetry Post Tiitration 06/13/24 10:41 06/13/24 10:43 06/13/24 10:50 Temperature Temperature Source Pulse Rate 78 79 Pulse Rate [Apical] Pulse Rhythm Regular Respiratory Rate 28 H 23 Respiratory Effort / Characteristics Spontaneous Respiratory Depth Respiratory Pattern Blood Pressure Blood Pressure [Left Arm] Blood Pressure Mean Blood Pressure Mean [Left Arm] Pulse Oximetry 89 L 79 L 92 Oxygen Delivery Method Non-rebreather Non-rebreather Oxygen Flow Rate 15 0 Fraction of Inspired Oxygen 70 Sepsis Recent Fever Within 48 Hours Sepsis New/Unexplained Change in Mental Status Sepsis Action Taken by Nursing Oxygen Flow Rate - Titration 15 Pulse Oximetry Post Tiitration 89 L 06/13/24 11:18 06/13/24 11:18 06/13/24 11:43 Temperature Temperature Source Pulse Rate Pulse Rate [Apical] 82 78 Pulse Rhythm Respiratory Rate 18 18 Respiratory Effort / Characteristics Respiratory Depth Respiratory Pattern Blood Pressure Blood Pressure [Left Arm] 141/78 H 139/75 Blood Pressure Mean Blood Pressure Mean [Left Arm] 99 96 Pulse Oximetry 95 91 Oxygen Delivery Method BiPAP BiPAP BiPAP Oxygen Flow Rate Fraction of Inspired Oxygen Sepsis Recent Fever Within 48 Hours Sepsis New/Unexplained Change in Mental Status Sepsis Action Taken by Nursing Oxygen Flow Rate - Titration Pulse Oximetry Post Tiitration 06/13/24 11:59 06/13/24 11:59 06/13/24 12:26 Temperature 36.3 C L Temperature Source Core Pulse Rate 79 Pulse Rate [Apical] 79 Pulse Rhythm Respiratory Rate 18 18 Respiratory Effort / Characteristics Respiratory Depth Respiratory Pattern Blood Pressure Blood Pressure [Left Arm] 131/83 Blood Pressure Mean Blood Pressure Mean [Left Arm] 99 Pulse Oximetry 96 93 Oxygen Delivery Method BiPAP BiPAP Oxygen Flow Rate Fraction of Inspired Oxygen Sepsis Recent Fever Within 48 Hours Sepsis New/Unexplained Change in Mental Status Sepsis Action Taken by Nursing Oxygen Flow Rate - Titration Pulse Oximetry Post Tiitration Physical Exam HENT: Exam performed. -Head: Normocephalic and atraumatic. NECK: Normal range of motion. Neck supple. No JVD present. CV: Tachycardic rate, regular rhythm, normal heart sounds and intact distal pulses. There is no peripheral edema. Palpable radial pulses bue. PULM/CHEST: Rhonchi bilaterally. -Chest Wall: No crepitus bilaterally. ABD: The abdomen is soft. There is no tenderness. There is no rebound, no guarding. MUSC/SKEL: Pelvis stable. NEURO: GCS eye subscore is 4. GCS verbal subscore is 3. GCS motor subscore is 4 SKIN: Bruising over the bilateral lower extremities. Course Course 1037: The patient was evaluated in room A1. A complete history and physical exam was performed Cardiac monitoring: An order was placed for continuous cardiac monitoring. The monitor shows a rate of 80 with sinus rhythm interpreted by me Patient found to be hypoxic. Patient was placed on nonrebreather and no significant improvement in her oxygen saturation. Patient will be placed on high flow nasal cannula. Trauma alert activated. 1042: Chest x-ray reviewed by me shows bilateral pleural effusions but no pneumothorax. Patient will be moved to resuscitation bay after CT. Patient's i-STAT showed a potassium of 7. EKG does not show any peaked T waves or widened QRS, this is thought to be due to hemolysis however we will treat the patient with calcium gluconate 1 g prior to going to CT. Formal labs are pending. 1115: On return from CT the patient is unable to tolerate high flow nasal cannula without becoming hypoxic. CT of the chest viewed by me shows no pneumothorax. CT of the head viewed by me shows no ICH. Patient be placed on BiPAP. I updated the son who. At the bedside. Son reports he was called by the state police who did a welfare check and saw the patient lying on the floor. Patient's oxygen saturations better on BiPAP. 1237: Vital signs stable on BiPAP. Labs show an elevated BNP of 440. Imaging formal read shows that the patient is fluid overloaded. Creatinine kinase 2446. High sensitive troponin negative. Patient is COVID-positive. Decadron 6 mg ordered for the patient. [facility] Discussed case with Neela who states admit to Dr. Calvert. She states she will evaluate the patient for IV fluids or to hold off on them. 1247: Vital signs stable on BiPAP. Spoke with Neela who evaluated the patient for [facility] and she recommends giving gentle hydration with normal saline at 80 cc/h. Administered Medications Discontinued Medications Calcium Gluconate (Calcium Gluconate 1000 Mg/60 Ml Nss) Confirm Administered Dose 1,000 mg IV .ST-MED ONE Stop: 06/13/24 10:49 Last Admin: 06/13/24 11:17 Dose: Not Given Documented By: GIULIANO Dexamethasone Sodium Phosphate (DexamethasonePf 10 Mg/Ml Vial) 6 mg IV NOW ONE Stop: 06/13/24 12:19 Last Admin: 06/13/24 12:27 Dose: 6 mg Documented By: GIULIANO Calcium Gluconate () 1,000 mg in 60 mls @ 240 mls/hr IV NOW STA Stop: 06/13/24 11:01 Last Infusion: 06/13/24 11:48 Dose: Infused Documented By: Admin: 06/13/24 11:17 Dose: 240 mls/hr Documented By: GIULIANO Sodium Chloride (Nss) 1,000 mls @ 999 mls/hr IV .Q1H1M ONE Stop: 06/13/24 11:48 Last Infusion: 06/13/24 12:04 Dose: 0 mls/hr Documented By: Admin: 06/13/24 11:17 Dose: 999 mls/hr Documented By: GIULIANO Ioversol (Optiray 320 125ml) 94 ml IV ONCE ONE Stop: 06/13/24 11:15 Last Admin: 06/13/24 11:15 Dose: 94 ml Documented By: PRATIK Critical Care Time Critical Care Time: Yes Total Critical Care Time: 46 I have personally spent greater than 46 minutes of critical care time in the direct management of this patient. This includes bedside care, interpretation of diagnostic studies, and testing, discussion with consultants, patient, and family members, and other required patient management activities. This 46 minutes is in excess of all separately billable procedures. Medical Decision Making Laboratory Data Attestation: I reviewed the patient's lab results. 06/13/24 11:21 06/13/24 10:57 Lab Results 06/13/24 06/13/24 06/13/24 Range/Units 10:40 10:46 10:57 WBC (4.8-10.8) K/ul RBC (4.20-5.40) M/uL Hgb (12.0-16.0) g/dl POC Hgb 16.0 (12.0-16.0) g/dl Hct (37.0-47.0) % POC Hct 47 (37-47) % MCV (80.0-100.0) fL MCH (25.0-34.0) pg MCHC (32.0-36.0) g/dL RDW Std Deviation (36.4-46.3) fL RDW Coeff of [place] (11.5-14.5) % Plt Count (130-400) K/uL MPV (9.4-12.4) fL Immature Gran % (Auto) % Neut % (Auto) % Lymph % (Auto) % [place] % (Auto) % Eos % (Auto) % Baso % (Auto) % Neut # (Auto) (1.40-6.50) K/uL Lymph # (Auto) (1.20-3.40) K/uL [place] # (Auto) (0.11-0.59) K/uL Eos # (Auto) (0.00-0.50) K/uL Baso # (Auto) (0.00-0.20) K/uL Immature Gran # (Auto) (0.01-0.20) K/uL PT 10.3 (9.0-12.0) Seconds INR 0.9 (0.9-1.1) APTT 23 (21-31) Seconds PTT Ratio 0.9 VBG pH (7.36-7.41) VBG pCO2 (38-50) mmHg VBG pO2 mmHg VBG HCO3 mmol/L VBG O2 Saturation % VBG Base Excess mEq/L POC Sodium 116 L* (135-144) mmol/L Sodium 121 L (136-145) mmol/L POC Potassium 7.0 H* (3.3-5.0) mmol/L Potassium 4.4 (3.5-5.1) mmol/L POC Chloride 85 L (101-112) mmol/L Chloride 87 L (98-107) mmol/L Carbon Dioxide 21 (21-32) mmol/L POC Total CO2 23 L (24-31) mmol/L Anion Gap 13 H (3-11) POC Anion Gap 15.0 L (16-25) mmol/L POC BUN 33 H (7-18) mg/dl BUN 22 (6-23) mg/dl Creatinine 0.54 L (0.6-1.2) mg/dl POC Creatinine 0.7 (0.6-1.3) mg/dl Est Cr Clr Drug Dosing 83.3 ml/min eGFR 97.76 BUN/Creatinine Ratio 40.7 H (10-20) Glucose 78 (70-99(Fasting)) mg/dl POC Glucose (other) 79 (70-99) mg/dl Calcium 8.6 (8.6-10.3) mg/dl POC Ioniz Calcium Lux 0.95 L (1.12-1.32) mmol/l Magnesium 1.7 (1.7-2.4) mg/dl Total Creatine Kinase 2446 H (26-192) U/L Troponin I High Sens 13.1 (0-14) pg/ml B-Natriuretic Peptide (0-100) pg/ml Lipase 35 (11-82) U/L Urine Color Urine Appearance (Clear) Urine pH (4.5-7.5) Ur Specific [place] (1.000-1.030) Urine Protein (Negative) Urine Glucose (UA) (Negative) Urine Ketones (Negative) Urine Blood (Negative) Urine Nitrite (Negative) Urine Bilirubin (Negative) Urine Urobilinogen (Negative) Ur Leukocyte Esterase (Negative) Urine WBC (Auto) (0-5) /hpf Urine RBC (Auto) (0-2) /hpf U Hyaline Cast (Auto) (0-2) /lpf U Epithel Cells (Auto) (0-2) /hpf Urine Bacteria (Auto) (None Seen) Adenovirus (PCR) Not Detected (NotDetected) B. pertussis DNA (PCR) Not Detected (NotDetected) B.parapertussis DNA PCR Not Detected (NotDetected) C. pneumoniae DNA (PCR) Not Detected (NotDetected) Coronavirus OC43 (PCR) Not Detected (NotDetected) Coronavirus HKU1 (PCR) Not Detected (NotDetected) Coronavirus 229E (PCR) Not Detected (NotDetected) SARS-CoV-2 (PCR) DETECTED A (NotDetected) Coronavirus NL63 (PCR) Not Detected (NotDetected) Human Metapneumovir PCR Not Detected (NotDetected) Influenza Type A (PCR) Not Detected (NotDetected) Influenza Type B (PCR) Not Detected (NotDetected) M. pneumoniae (PCR) Not Detected (NotDetected) Parainfluenza 1 (PCR) Not Detected (NotDetected) Parainfluenza 2 (PCR) Not Detected (NotDetected) Parainfluenza 3 (PCR) Not Detected (NotDetected) Parainfluenza 4 (PCR) Not Detected (NotDetected) RSV (PCR) Not Detected (NotDetected) Entero/Rhino (PCR) Not Detected (NotDetected) 06/13/24 06/13/24 Range/Units 11:21 11:47 WBC 12.62 H (4.8-10.8) K/ul RBC 4.36 (4.20-5.40) M/uL Hgb 12.9 (12.0-16.0) g/dl POC Hgb (12.0-16.0) g/dl Hct 35.1 L (37.0-47.0) % POC Hct (37-47) % MCV 80.5 (80.0-100.0) fL MCH 29.6 (25.0-34.0) pg MCHC 36.8 H (32.0-36.0) g/dL RDW Std Deviation 38.8 (36.4-46.3) fL RDW Coeff of [place]recia 13.3 (11.5-14.5) % Plt Count 146 (130-400) K/uL MPV 12.0 (9.4-12.4) fL Immature Gran % (Auto) 0.6 % Neut % (Auto) 85.2 % Lymph % (Auto) 6.4 % [place] % (Auto) 7.5 % Eos % (Auto) 0.2 % Baso % (Auto) 0.1 % Neut # (Auto) 10.75 H (1.40-6.50) K/uL Lymph # (Auto) 0.81 L (1.20-3.40) K/uL [place] # (Auto) 0.95 H (0.11-0.59) K/uL Eos # (Auto) 0.03 (0.00-0.50) K/uL Baso # (Auto) 0.01 (0.00-0.20) K/uL Immature Gran # (Auto) 0.07 (0.01-0.20) K/uL PT (9.0-12.0) Seconds INR (0.9-1.1) APTT (21-31) Seconds PTT Ratio VBG pH 7.38 (7.36-7.41) VBG pCO2 40 (38-50) mmHg VBG pO2 26 mmHg VBG HCO3 24 mmol/L VBG O2 Saturation < 60.0 % VBG Base Excess -1.3 mEq/L POC Sodium (135-144) mmol/L Sodium (136-145) mmol/L POC Potassium (3.3-5.0) mmol/L Potassium (3.5-5.1) mmol/L POC Chloride (101-112) mmol/L Chloride (98-107) mmol/L Carbon Dioxide (21-32) mmol/L POC Total CO2 (24-31) mmol/L Anion Gap (3-11) POC Anion Gap (16-25) mmol/L POC BUN (7-18) mg/dl BUN (6-23) mg/dl Creatinine (0.6-1.2) mg/dl POC Creatinine (0.6-1.3) mg/dl Est Cr Clr Drug Dosing ml/min eGFR BUN/Creatinine Ratio (10-20) Glucose (70-99(Fasting)) mg/dl POC Glucose (other) (70-99) mg/dl Calcium (8.6-10.3) mg/dl POC Ioniz Calcium Lux (1.12-1.32) mmol/l Magnesium (1.7-2.4) mg/dl Total Creatine Kinase (26-192) U/L Troponin I High Sens (0-14) pg/ml B-Natriuretic Peptide 442 H (0-100) pg/ml Lipase (11-82) U/L Urine Color Yellow Urine Appearance Clear (Clear) Urine pH 5.5 (4.5-7.5) Ur Specific [place] 1.020 (1.000-1.030) Urine Protein 1+ H (Negative) Urine Glucose (UA) Negative (Negative) Urine Ketones 1+ H (Negative) Urine Blood Negative (Negative) Urine Nitrite Negative (Negative) Urine Bilirubin Negative (Negative) Urine Urobilinogen Negative (Negative) Ur Leukocyte Esterase Negative (Negative) Urine WBC (Auto) 0-5 (0-5) /hpf Urine RBC (Auto) 0-2 (0-2) /hpf U Hyaline Cast (Auto) 3-5 H (0-2) /lpf U Epithel Cells (Auto) 0-2 (0-2) /hpf Urine Bacteria (Auto) None Seen (None Seen) Adenovirus (PCR) (NotDetected) B. pertussis DNA (PCR) (NotDetected) B.parapertussis DNA PCR (NotDetected) C. pneumoniae DNA (PCR) (NotDetected) Coronavirus OC43 (PCR) (NotDetected) Coronavirus HKU1 (PCR) (NotDetected) Coronavirus 229E (PCR) (NotDetected) SARS-CoV-2 (PCR) (NotDetected) Coronavirus NL63 (PCR) (NotDetected) Human Metapneumovir PCR (NotDetected) Influenza Type A (PCR) (NotDetected) Influenza Type B (PCR) (NotDetected) M. pneumoniae (PCR) (NotDetected) Parainfluenza 1 (PCR) (NotDetected) Parainfluenza 2 (PCR) (NotDetected) Parainfluenza 3 (PCR) (NotDetected) Parainfluenza 4 (PCR) (NotDetected) RSV (PCR) (NotDetected) Entero/Rhino (PCR) (NotDetected) Imaging Data Attestation: I personally reviewed and interpreted this imaging study as follows: My Impression: CT of the head: No ICH Chest x-ray: Chest x-ray negative. Airway clear. No pneumothorax. No consolidation. No cardiomegaly or cephalization.. No free air under the diaphragm. No fractures of the skeletal structures. Pelvis x-ray: No acute fracture or dislocation Femur x-ray bilaterally: No acute fracture or dislocation CT of the chest: No pneumothorax or hemothorax. Bilateral pleural effusions Radiologist's Impression: Abdomen/Pelvis CT 06/13/24 10:41 CT OF THE ABDOMEN AND PELVIS WITH CONTRAST CLINICAL HISTORY: trauma COMPARISON STUDY: Pelvis radiograph performed earlier today. TECHNIQUE: Following IV administration of 94 mL of Optiray, axial images of the abdomen and pelvis were obtained from the lung bases to the proximal femurs. Images were reviewed in the axial, sagittal, and coronal planes. IV contrast was administered without complication. Automated exposure control was utilized for the study. A dose lowering technique was utilized adhering to the principles of ALARA. FINDINGS: Moderate right and small left pleural effusions are present. Extensive associated bilateral lower lobe airspace opacities are present. Distal esophageal wall thickening is noted. There is body wall edema. There is also mild mesenteric edema as well as presacral fluid. Exam is mildly compromised by motion artifact. No hemoperitoneum or pneumoperitoneum is present. There is no evidence for traumatic injury to the liver, spleen, adrenal glands, kidneys or pancreas. There is a left lower pole renal cyst. There is no hydronephrosis. No biliary or pancreatic ductal dilatation is present. Prominent mucosal enhancement of the stomach and duodenum is present. There is no evidence for a bowel obstruction. The bladder is significantly distended. There are calcified fibroids. No acute fractures within the lumbar spine, pelvis or hips are identified. There are no fluid collections. IMPRESSION: 1. No acute traumatic findings within the abdomen or pelvis. Exam mildly compromised by motion artifact. 2. No acute fractures. 3. Evidence for volume overload. Body wall edema. Trace ascites within the abdomen and pelvis. 4. Distended bladder. 5. Prominent mucosal enhancement of the stomach and duodenum. This may be related to the phase of enhancement however gastritis/duodenitis could appear similar. ACT 112: Negative or not required by law. Electronically signed by: Jimi Jaramillo M.D. 06/13/2024 11:44 AM Chest X-Ray 06/13/24 10:41 XR chest 1V portable CLINICAL HISTORY: fall COMPARISON STUDY: Chest radiograph and chest CT February 04, 2021. FINDINGS: There is no pneumothorax. There is mild cardiomegaly. Interstitial thickening is noted. Bilateral perihilar prominence is symmetric. Moderate right and small left pleural effusions are present. IMPRESSION: 1. No pneumothorax. 2. Moderate right and small left pleural effusions with associated bibasilar opacities. 3. Interstitial pulmonary edema. ACT 112: Negative or not required by law. Electronically signed by: Jimi Jaramillo M.D. 06/13/2024 11:17 AM Pelvis X-Ray 06/13/24 10:41 XR pelvis 1-2V routine CLINICAL HISTORY: fall COMPARISON: Sacrum and coccyx radiographs September 10, 2013. FINDINGS: The bladder may be distended. There are no fractures within the pelvis or hips. There is mild bilateral hip osteophytosis IMPRESSION: 1. No fractures within the pelvis or hips. 2. Suspected bladder distention. ACT 112: Negative or not required by law. Electronically signed by: Jimi Jaramillo M.D. 06/13/2024 11:[address] 06/13/24 10:42 CT OF THE CERVICAL SPINE WITHOUT CONTRAST CLINICAL HISTORY: trauma COMPARISON STUDY: CTA of the neck May 10, 2022. TECHNIQUE: Helical axial images of the cervical spine were obtained without IV contrast. Sagittal and coronal reconstructions were viewed. Automated exposure control was utilized for the study. A dose lowering technique was utilized adhering to the principles of ALARA. FINDINGS: Alignment of the cervical spine is anatomic. Vertebral body heights are maintained. No acute cervical spine fracture or subluxation is present. There is no prevertebral edema. Facet joints are intact. Moderate multilevel degenerative disc disease and facet arthrosis is present. IMPRESSION: No acute cervical spine fracture or subluxation. ACT 112: Negative or not required by law. Electronically signed by: Jimi Jaramillo M.D. 06/13/2024 11:[address] 06/13/24 10:42 CT OF THE HEAD WITHOUT CONTRAST CLINICAL HISTORY: trauma COMPARISON STUDY: MRI of the brain May 22, 2017. Head CT May 10, 2022. TECHNIQUE: Helical axial images of the head were obtained without IV contrast. Automated exposure control was utilized for the study. A dose lowering technique was utilized adhering to the principles of ALARA. FINDINGS: No acute intracranial hemorrhage, midline shift or mass effect is present. White matter hypodensity suggests small vessel disease. The ventricular system is unremarkable. The basal cisterns are patent. No extra-axial collections are present. There are no findings to suggest acute dural sinus thrombosis or acute territorial infarct. There are no calvarial fractures. There are small air-fluid levels within the sphenoid sinuses. IMPRESSION: 1. No acute intracranial findings. 2. No calvarial fractures. ACT 112: Negative or not required by law. Electronically signed by: Jimi Jaramillo M.D. 06/13/2024 11:25 AM Femur X-Ray 06/13/24 10:46 XR femur LT 2V routine CLINICAL HISTORY: trauma COMPARISON: None FINDINGS: Alignment of the left hip and left knee is anatomic. There are no left femoral fractures. There are no osseous lesions. Mild left hip osteoarthritis. IMPRESSION: No left femoral fractures. ACT 112: Negative or not required by law. Electronically signed by: Jimi Jaramillo M.D. 06/13/2024 11:19 AM Femur X-Ray 06/13/24 10:46 XR femur RT 2V routine CLINICAL HISTORY: trauma COMPARISON: None FINDINGS: Alignment of the right hip and right knee is anatomic. There are no fractures within the right femur. There are no osseous lesions. There is mild right hip osteoarthritis. IMPRESSION: No right femoral fractures. ACT 112: Negative or not required by law. Electronically signed by: Jimi Jaramillo M.D. 06/13/2024 11:[address] 06/13/24 10:48 CT OF THE CHEST WITH IV CONTRAST CLINICAL HISTORY: trauma COMPARISON STUDY: Chest CT February 04, 2021. TECHNIQUE: Following IV administration of 94 mL of Optiray, helical axial images of the chest were obtained. Sagittal and coronal reconstructions were viewed as well as maximal intensity projections on an independent 3-D workstation. Automated exposure control was utilized for the study. A dose lowering technique was utilized adhering to the principles of ALARA. FINDINGS: There is no evidence for acute injury to the thoracic aorta. No mediastinal hematoma is present. There is mild cardiomegaly. No pericardial effusion is present. There is no pneumothorax. Moderate right and small left pleural effusions are present. Subpleural bilateral lower lobe airspace opacities are noted. There are moderate secretions within the lower lobe airways. No central obstructing mass is identified. No acute rib or thoracic spine fracture is identified. The abdomen and pelvis CT will be reported separately. Circumferential wall thickening of the esophagus is present. IMPRESSION: 1. No acute traumatic findings within the chest. 2. Moderate right and small left pleural effusions. Extensive associated bilateral lower lobe airspace opacities. These may reflect pneumonia or aspiration pneumonitis. Atelectasis could appear similar although pneumonia/aspiration pneumonitis is favored, particularly within the left lower lobe. 3. No pneumothorax. 4. Circumferential wall thickening of the esophagus. This may reflect esophagitis. ACT 112: Negative or not required by law. Electronically signed by: Jimi Jaramillo M.D. 06/13/2024 11:38 AM ECG Data Attestation: I personally reviewed and interpreted this ECG as follows: Rate (beats per minute): 77 Rhythm: + normal sinus ECG Intervals/blocks: + Normal MO and + Normal QT-c ECG ST segments: + Normal ST segments Additional Comments: QRS 76 MDM Narrative 1037: The patient was evaluated in room A1. A complete history and physical exam was performed Cardiac monitoring: An order was placed for continuous cardiac monitoring. The monitor shows a rate of 80 with sinus rhythm interpreted by me Patient found to be hypoxic. Patient was placed on nonrebreather and no significant improvement in her oxygen saturation. Patient will be placed on high flow nasal cannula. Trauma alert activated. 1042: Chest x-ray reviewed by me shows bilateral pleural effusions but no pneumothorax. Patient will be moved to resuscitation bay after CT. Patient's i-STAT showed a potassium of 7. EKG does not show any peaked T waves or widened QRS, this is thought to be due to hemolysis however we will treat the patient with calcium gluconate 1 g prior to going to CT. Formal labs are pending. 1115: On return from CT the patient is unable to tolerate high flow nasal cannula without becoming hypoxic. CT of the chest viewed by me shows no pneumothorax. CT of the head viewed by me shows no ICH. Patient be placed on BiPAP. I updated the son who. At the bedside. Son reports he was called by the state police who did a welfare check and saw the patient lying on the floor. Patient's oxygen saturations better on BiPAP. 1237: Vital signs stable on BiPAP. Labs show an elevated BNP of 440. Imaging formal read shows that the patient is fluid overloaded. Creatinine kinase 2446. High sensitive troponin negative. Patient is COVID-positive. Decadron 6 mg ordered for the patient. [facility] Discussed case with Neela who states admit to Dr. Calvert. She states she will evaluate the patient for IV fluids or to hold off on them. 1247: Vital signs stable on BiPAP. Spoke with Neela who evaluated the [facility] and she recommends giving gentle hydration with normal saline at 80 cc/h. Impression & Plan Hypoxia, COVID-19, Rhabdomyolysis, Fall Discharge Plan Visit Data Chief Complaint: Trauma Stated Complaint: AMS, HYPOXIA ED Provider: Miller Cardona Discharge Problem: Hypoxia, COVID-19, Rhabdomyolysis, Fall Patient Disposition: Admitted As Inpatient Forms Stand Alone Forms: [facility] Prescriptions Prescriptions: No Action aspirin 81 mg tablet,delayed release (DR/EC) 81 mg PO UD Rx Instructions: 81 mg po daily. unable to verify otc cholecalciferol (vitamin D3) 25 mcg (1,000 unit) capsule 25 mcg PO DAILY Rx Instructions: unable to verify otc nifedipine 90 mg tablet extended release 90 mg PO QAM potassium chloride 10 mEq capsule, extended release 10 meq PO QAM valacyclovir 1 gram tablet 2,000 mg PO Q12H PRN (Reason: Cold Sores) meclizine 25 mg tablet 25 mg PO TID PRN (Reason: dizziness) Qty: 20 0RF calcium carbonate [Tums 500] 500 mg calcium (1,250 mg) Tablet,Chewable 500 mg PO DAILY Rx Instructions: unable to verify otc sennosides [senna] 8.6 mg Tablet 8.6 mg PO UD Rx Instructions: 8.6 mg po BID . unable to verify otc cetirizine [Zyrtec] 10 mg Tablet 10 mg PO DAILY PRN (Reason: Other) Rx Instructions: hasnt filled with pharmacy since November. May be getting OTC ascorbic acid (vitamin C) [Vitamin C] 500 mg Tablet 500 mg PO DAILY Rx Instructions: unable to verify otc Lactaid Fast Act 9,000 unit Tablet,Chewable 9,000 unit PO AC PRN (Reason: .Intolerance) Rx Instructions: unable to verify otc administer with first bite of dairy food Paxlovid 300 mg (150 mg x 2)-100 mg tablets,dose pack 1 ea PO DIRECTED Rx Instructions: filled 06/09 for 5 days Referrals Referrals: Dyana Blandon MD [Primary Care Provider] - Discharge Problem: Rhabdomyolysis Qualifiers: Encounter type: initial encounter Fall Qualifiers: Encounter type: initial encounter Qualified Code(s): W19.XXXA - Unspecified fall, initial encounter
[2024-06-13 11:40] LABS: Basophils # (auto) 0.01 K/uL (0.00-0.20); Basophils % (auto) 0.1 %; Eosinophils # (auto) 0.03 K/uL (0.00-0.50); Eosinophils % (auto) 0.2 %; Hematocrit (blood only) 35.1 % (37.0-47.0); Hemoglobin 12.9 g/dl (12.0-16.0); Immature Granulocytes # (auto) 0.07 K/uL (0.01-0.20); Immature Granulocytes % (auto) 0.6 %; Lymphocytes # (auto) 0.81 K/uL (1.20-3.40); Lymphocytes % (auto) 6.4 %; Mean Corpuscular Hemoglobin 29.6 pg (25.0-34.0); Mean Corpuscular Hgb Conc 36.8 g/dL (32.0-36.0); Mean Corpuscular Volume 80.5 fL (80.0-100.0); Monocytes # (auto) 0.95 K/uL (0.11-0.59); Monocytes % (auto) 7.5 %; Neutrophils # (auto) 10.75 K/uL (1.40-6.50); Neutrophils % (auto) 85.2 %; Platelet Count 146 K/uL (130-400); RDW Coefficient of Variation 13.3 % (11.5-14.5); RDW Standard Deviation 38.8 fL (36.4-46.3); Red Blood Count 4.36 M/uL (4.20-5.40); White Blood Count 12.62 K/ul (4.8-10.8)
--- NOTE | 2024-06-13 11:40 | CT Scan Report ---
CT OF THE CHEST WITH IV CONTRAST CLINICAL HISTORY: trauma COMPARISON STUDY: Chest CT February 04, 2021. TECHNIQUE: Following IV administration of 94 mL of Optiray, helical axial images of the chest were o btained. Sagittal and coronal reconstructions were viewed as well as maximal intensity projections o n an independent 3-D workstation. Automated exposure control was utilized for the study. A dose low ering technique was utilized adhering to the principles of ALARA. FINDINGS: There is no evidence for acute injury to the thoracic aorta. No mediastinal hematoma is pr esent. There is mild cardiomegaly. No pericardial effusion is present. There is no pneumothorax. Mode rate right and small left pleural effusions are present. Subpleural bilateral lower lobe airspace opa cities are noted. There are moderate secretions within the lower lobe airways. No central obstructing mass is identified. No acute rib or thoracic spine fracture is identified. The abdomen and pelvis CT will be reported separately. Circumferential wall thickening of the esophagus is present. IMPRESSION: 1. No acute traumatic findings within the chest. 2. Moderate right and small left pleural effusions. Extensive associated bilateral lower lobe airspac e opacities. These may reflect pneumonia or aspiration pneumonitis. Atelectasis could appear similar although pneumonia/aspiration pneumonitis is favored, particularly within the left lower lobe. 3. No pneumothorax. 4. Circumferential wall thickening of the esophagus. This may reflect esophagitis. ACT 112: Negative or not required by law. Electronically signed by: Jimi Jaramillo M.D. 06/13/2024 11:38 AM
[2024-06-13 11:43] LABS: INR 0.9 (0.9-1.1); Partial Thromboplastin Ratio 0.9; Partial Thromboplastin Time 23 Seconds (21-31); Prothrombin Time 10.3 Seconds (9.0-12.0)
--- NOTE | 2024-06-13 11:46 | CT Scan Report ---
CT OF THE ABDOMEN AND PELVIS WITH CONTRAST CLINICAL HISTORY: trauma COMPARISON STUDY: Pelvis radiograph performed earlier today. TECHNIQUE: Following IV administration of 94 mL of Optiray, axial images of the abdomen and pelvis we re obtained from the lung bases to the proximal femurs. Images were reviewed in the axial, sagittal, and coronal planes. IV contrast was administered without complication. Automated exposure control wa s utilized for the study. A dose lowering technique was utilized adhering to the principles of ALARA . FINDINGS: Moderate right and small left pleural effusions are present. Extensive associated bilateral lower lobe airspace opacities are present. Distal esophageal wall thickening is noted. There is body wall edema. There is also mild mesenteric edema as well as presacral fluid. Exam is mildly compromis ed by motion artifact. No hemoperitoneum or pneumoperitoneum is present. There is no evidence for tra umatic injury to the liver, spleen, adrenal glands, kidneys or pancreas. There is a left lower pole r enal cyst. There is no hydronephrosis. No biliary or pancreatic ductal dilatation is present. Promine nt mucosal enhancement of the stomach and duodenum is present. There is no evidence for a bowel obstr uction. The bladder is significantly distended. There are calcified fibroids. No acute fractures with in the lumbar spine, pelvis or hips are identified. There are no fluid collections. IMPRESSION: 1. No acute traumatic findings within the abdomen or pelvis. Exam mildly compromised by motion artifa ct. 2. No acute fractures. 3. Evidence for volume overload. Body wall edema. Trace ascites within the abdomen and pelvis. 4. Distended bladder. 5. Prominent mucosal enhancement of the stomach and duodenum. This may be related to the phase of enh ancement however gastritis/duodenitis could appear similar. ACT 112: Negative or not required by law. Electronically signed by: Jimi Jaramillo M.D. 06/13/2024 11:44 AM
[2024-06-13 11:52] LABS: Calcium 8.6 mg/dl (8.6-10.3); Magnesium 1.7 mg/dl (1.7-2.4); Potassium 4.4 mmol/L (3.5-5.1)
[2024-06-13 11:58] LABS: BUN Creatinine Ratio 40.7 (10-20); Creatinine Clr Calc Pharmacy 83.3 ml/min
[2024-06-13 12:02] LABS: Troponin I High Sensitivity 13.1 pg/ml (0-14)
[2024-06-13 12:04] LABS: Appearance Urine Clear (Clear); Bacteria Urine Automated None Seen (None Seen); Bilirubin Urine Negative (Negative); Blood Urine Negative (Negative); Color Urine Yellow; Epithelial Cell Urine Auto 0-2 /hpf (0-2); Glucose Urine UA Negative (Negative); Ketones Urine 1+ (Negative); Leukocyte Esterase Urine Negative (Negative); Nitrite Urine Negative (Negative); Protein Urine 1+ (Negative); RBC Urine Automated 0-2 /hpf (0-2); Urobilinogen Urine Negative (Negative); WBC Urine Automated 0-5 /hpf (0-5); pH Urine 5.5 (4.5-7.5)
[2024-06-13 12:09] LABS: Adenovirus PCR Not Detected (NotDetected); Bordetella parapertussis PCR Not Detected (NotDetected); Bordetella pertussis PCR Not Detected (NotDetected); Chlamydia pneumoniae PCR Not Detected (NotDetected); Coronavirus 229E PCR Not Detected (NotDetected); Coronavirus CoV-2 (COVID19)PCR DETECTED (NotDetected); Coronavirus HKU1 PCR Not Detected (NotDetected); Coronavirus NL63 PCR Not Detected (NotDetected); Coronavirus OC43PCR Not Detected (NotDetected); Human Metapneumovirus PCR Not Detected (NotDetected); Influenza A PCR Not Detected (NotDetected); Influenza B PCR Not Detected (NotDetected); Mycoplasma pneumoniae PCR Not Detected (NotDetected); Parainfluenza Virus 1 PCR Not Detected (NotDetected); Parainfluenza Virus 2 PCR Not Detected (NotDetected); Parainfluenza Virus 3 PCR Not Detected (NotDetected); Parainfluenza Virus 4 PCR Not Detected (NotDetected); Respiratory Syncytial VirusPCR Not Detected (NotDetected); Rhinovirus/Enterovirus PCR Not Detected (NotDetected)
[2024-06-13] MEDS: dexAMETHasone**PF** 10 MG/ML VIAL IV ONE (12:27)
[2024-06-13] MEDS: SODIUM CHLORIDE 0.9% 1,000 ML IV SCH (13:12)
--- NOTE | 2024-06-13 13:37 | History & Physical Report ---
Date of Service June 13, 2024 Assessment & Plan (1) Acute hypoxic respiratory failure: Plan: This is a 74 y/o female with Raynaud's, chronic vertigo, thoracic ascending aneurysm, chronic venous insufficiency with history of recurrent venous ulcers previously followed at the wound clinic, and other history as noted below who was brought into the ED today as a trauma alert. Found to be hypoxic by EMS and was placed on O2 that had to be titrated up to high flow before patient was ultimately placed on BiPAP. Diagnosed with COVID on 06/09 (symptoms since 06/06) and prescribed Paxlovid as outpatient. Unclear how long patient was on the floor but she thinks that she may have fallen trying to get out of bed last night. Suspect component of aspiration pneumonitis based on imaging. - Admit to PCU - Continue BiPAP for respiratory support - wean as tolerated. Incentive spirometry when off BiPAP - Broad spectrum antibiotic coverage for now - Zosyn and Doxycycline - Check ECHO (2) Rhabdomyolysis: Plan: Unclear how long patient was down at home - CK in the ED elevated at 2446. Repeat tomorrow. Creatinine normal, LFTs pending Received ~800 ml of fluid in the ED (3) COVID-19: Plan: Symptoms seem to have started around 06/06, prescribed Paxlovid as outpatient Decadron started in the ED, will continue (4) Hyponatremia: Plan: Appears acute/new Check serum osmolality, urine osmolality, urine sodium Repeat BMP this evening after IVF in the ED for trend, labs in the AM Consult nephrology (5) Raynauds phenomenon: Plan: Chronic, stable Continue nifedipine (6) Venous insufficiency (chronic) (peripheral): Plan: Chronic, stable Plan Pt seen and reviewed with collaborating physician, Dr. Javed. Plan of care discussed and as outlined above. Code status: full code DVT prophylaxis: Lovenox Admit to PCU, eventual PT/OT once more stable Minal Quiroz PA-C History of Present Illness Chief Complaint: "trauma alert" Primary Care Provider: Dyana Blandon MD This is a 74 y/o female with Raynaud's, chronic vertigo, thoracic ascending aneurysm, chronic venous insufficiency with history of recurrent venous ulcers previously followed at the wound clinic, and other history as noted below who was brought into the ED today as a trauma alert. Pt was found down at home this morning by police after her neighbors called for a wellness check. Last known well was two days ago. She reported to EMS that she thinks she may have fallen sometime last night trying to get out of bed. Initial sats for EMS were upper 70s to mid 80s so she was placed on O2 up to 15L via NRB. In the ED she was placed on BiPAP as was having trouble tolerating the high-flow oxygen. She has been maintaining sats on the BiPAP. Upon review of her [facility] chart, she was seen by PCP on 06/08 for two days of URI symptoms. COVID test came back positive so Wandy was called in on 06/09. Currently, pt is tolerating BiPAP without difficulty and maintaing her sats. She does not localize any specific pain but overall feels poorly. Allergies Allergy/AdvReac Type Severity Reaction Status Date / Time Estrogens Allergy Mild ` Verified 03/16/24 08:37 bacitracin Allergy Unknown POLYSPORIN Verified 03/16/24 08:37 polymyxin B Allergy Unknown POLYSPORIN Verified 03/16/24 08:37 Sulfa (Sulfonamide AdvReac Unknown ` Verified 03/16/24 08:37 Antibiotics) sulfamethoxazole AdvReac Unknown ` Verified 03/16/24 08:37 trimethoprim AdvReac Unknown ` Verified 03/16/24 08:37 Home Medications Medication Instructions Recorded Confirmed Type aspirin 81 mg tablet,delayed 81 mg PO UD 09/22/20 06/13/24 History release cholecalciferol (vitamin D3) 25 25 mcg PO DAILY 09/22/20 06/13/24 History mcg (1,000 unit) capsule nifedipine 90 mg tablet,extended 90 mg PO QAM 10/20/20 06/13/24 History release potassium chloride 10 mEq 10 meq PO QAM 10/20/20 06/13/24 History capsule,extended release valacyclovir 1 gram tablet 2,000 mg PO Q12H PRN Cold Sores 10/20/20 06/13/24 Hi story meclizine 25 mg tablet 25 mg PO TID PRN dizziness #20 tabs 09/22/21 06/13/24 Rx ascorbic acid (vitamin C) 500 mg 500 mg PO DAILY 11/18/22 06/13/24 History tablet (Vitamin C) calcium carbonate 500 mg PO DAILY 11/18/22 06/13/24 History cetirizine 10 mg tablet (Zyrtec) 10 mg PO DAILY PRN Other 11/18/22 06/13/24 History lactase 9,000 unit chewable tablet 9,000 unit PO AC PRN .Intolerance 11/18/22 06/13/24 History (Lactaid Fast Act) sennosides 8.6 mg tablet (senna) 8.6 mg PO UD 11/18/22 06/13/24 History nirmatrelvir 300 mg (150 mg 1 ea PO DIRECTED 06/13/24 06/13/24 History x2)-ritonavir 100 mg tablet,dose pack (Paxlovid) Past Med/Surg History Problem List (Updated 06/13/24 @ 17:09 by Rosa Quiroz PA-C) Raynauds phenomenon Hyponatremia Acute hypoxic respiratory failure Fall (Acute) Rhabdomyolysis (Acute) COVID-19 (Acute) Hypoxia (Acute) Venous insufficiency (chronic) (peripheral) (Chronic) Allergic rhinitis (Acute) Polyarthritis (Acute) Varicose veins of both lower extremities (Acute) Medical History Sensorineural hearing loss (SNHL) of both ears AD: mild HF SNHL, : mild to mod SNHL Chronic venous insufficiency of lower extremity History of 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 Dermatitis, eczematoid Dysplastic nevus Raynauds phenomenon Rosacea TMJ (temporomandibular joint syndrome) Vitamin D deficiency Fracture, sacrum/coccyx Surgical History History of breast lump/mass excision Status post endovenous radiofrequency ablation of saphenous vein H/O inguinal hernia repair Hx of tonsillectomy S/P endometrial ablation H/O tubal ligation Family History Father Stroke Other Diabetes Social History Smoking Status: Never smoker Tobacco Type: Cigarettes Do You Dip or Chew Tobacco: No; Hx Alcohol Use: No Hx Substance Use: No Preferred Language: Croatian Communication Ability: Effective Visual Impairment: Limited Hearing Ability: Use of Hearing Aid Transportation Engineering Technician Required: No Beliefs That Will Affect Care: None marital status: Single Current Living Situation: Alone current occupational status: employed 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 Abdomen: soft, NT, +BS Extremities: no pedal edema, radial pulses 2+ bilaterally Skin: few areas of ecchymosis noted on LE Results & Data Results & Data Vital Signs (Past 12 Hours) Vital Signs Temp Pulse Pulse Resp BP BP Pulse Ox 06/13/24 13:00 94 06/13/24 13:00 18 06/13/24 13:00 37.0 C 83 18 132/74 94 06/13/24 12:26 79 06/13/24 11:59 18 93 06/13/24 11:59 36.3 C L 79 18 131/83 96 06/13/24 11:43 78 18 139/75 91 06/13/24 11:18 82 18 141/78 H 95 06/13/24 11:18 06/13/24 10:50 79 23 92 06/13/24 10:43 79 L 06/13/24 10:41 78 28 H 89 L 06/13/24 10:29 36 C L 78 28 H 140/72 79 L 06/13/24 10:29 36 C L 78 28 H 140/72 79 L 06/13/24 10:29 36 C L 78 28 H 140/72 79 L O2 Del Method O2 Flow Rate FiO2 06/13/24 13:00 BiPAP 06/13/24 13:00 06/13/24 13:00 BiPAP 06/13/24 12:26 06/13/24 11:59 BiPAP 06/13/24 11:59 BiPAP 06/13/24 11:43 BiPAP 06/13/24 11:18 BiPAP 06/13/24 11:18 BiPAP 06/13/24 10:50 70 06/13/24 10:43 Non-rebreather 0 06/13/24 10:41 Non-rebreather 15 06/13/24 10:29 Room Air 06/13/24 10:29 Room Air, Non-rebreather 06/13/24 10:29 Room Air Laboratory Results Lab Results 06/13/24 06/13/24 06/13/24 Range/Units 10:40 10:46 10:57 WBC (4.8-10.8) K/ul RBC (4.20-5.40) M/uL Hgb (12.0-16.0) g/dl POC Hgb 16.0 (12.0-16.0) g/dl Hct (37.0-47.0) % POC Hct 47 (37-47) % MCV (80.0-100.0) fL MCH (25.0-34.0) pg MCHC (32.0-36.0) g/dL RDW Std Deviation (36.4-46.3) fL RDW Coeff of Grecia (11.5-14.5) % Plt Count (130-400) K/uL MPV (9.4-12.4) fL Immature Gran % (Auto) % Neut % (Auto) % Lymph % (Auto) % [place] % (Auto) % Eos % (Auto) % Baso % (Auto) % Neut # (Auto) (1.40-6.50) K/uL Lymph # (Auto) (1.20-3.40) K/uL [place] # (Auto) (0.11-0.59) K/uL Eos # (Auto) (0.00-0.50) K/uL Baso # (Auto) (0.00-0.20) K/uL Immature Gran # (Auto) (0.01-0.20) K/uL PT 10.3 (9.0-12.0) Seconds INR 0.9 (0.9-1.1) APTT 23 (21-31) Seconds PTT Ratio 0.9 VBG pH (7.36-7.41) VBG pCO2 (38-50) mmHg VBG pO2 mmHg VBG HCO3 mmol/L VBG O2 Saturation % VBG Base Excess mEq/L POC Sodium 116 L* (135-144) mmol/L Sodium 121 L (136-145) mmol/L POC Potassium 7.0 H* (3.3-5.0) mmol/L Potassium 4.4 (3.5-5.1) mmol/L POC Chloride 85 L (101-112) mmol/L Chloride 87 L (98-107) mmol/L Carbon Dioxide 21 (21-32) mmol/L POC Total CO2 23 L (24-31) mmol/L Anion Gap 13 H (3-11) POC Anion Gap 15.0 L (16-25) mmol/L POC BUN 33 H (7-18) mg/dl BUN 22 (6-23) mg/dl Creatinine 0.54 L (0.6-1.2) mg/dl POC Creatinine 0.7 (0.6-1.3) mg/dl Est Cr Clr Drug Dosing 83.3 ml/min eGFR 97.76 BUN/Creatinine Ratio 40.7 H (10-20) Glucose 78 (70-99(Fasting)) mg/dl POC Glucose (other) 79 (70-99) mg/dl Calcium 8.6 (8.6-10.3) mg/dl POC Ioniz Calcium Lux 0.95 L (1.12-1.32) mmol/l Magnesium 1.7 (1.7-2.4) mg/dl Total Creatine Kinase 2446 H (26-192) U/L Troponin I High Sens 13.1 (0-14) pg/ml B-Natriuretic Peptide (0-100) pg/ml Lipase 35 (11-82) U/L Urine Color Urine Appearance (Clear) Urine pH (4.5-7.5) Ur Specific Boyd (1.000-1.030) Urine Protein (Negative) Urine Glucose (UA) (Negative) Urine Ketones (Negative) Urine Blood (Negative) Urine Nitrite (Negative) Urine Bilirubin (Negative) Urine Urobilinogen (Negative) Ur Leukocyte Esterase (Negative) Urine WBC (Auto) (0-5) /hpf Urine RBC (Auto) (0-2) /hpf U Hyaline Cast (Auto) (0-2) /lpf U Epithel Cells (Auto) (0-2) /hpf Urine Bacteria (Auto) (None Seen) Adenovirus (PCR) Not Detected (NotDetected) B. pertussis DNA (PCR) Not Detected (NotDetected) B.parapertussis DNA PCR Not Detected (NotDetected) C. pneumoniae DNA (PCR) Not Detected (NotDetected) Coronavirus OC43 (PCR) Not Detected (NotDetected) Coronavirus HKU1 (PCR) Not Detected (NotDetected) Coronavirus 229E (PCR) Not Detected (NotDetected) SARS-CoV-2 (PCR) DETECTED A (NotDetected) Coronavirus NL63 (PCR) Not Detected (NotDetected) Human Metapneumovir PCR Not Detected (NotDetected) Influenza Type A (PCR) Not Detected (NotDetected) Influenza Type B (PCR) Not Detected (NotDetected) M. pneumoniae (PCR) Not Detected (NotDetected) Parainfluenza 1 (PCR) Not Detected (NotDetected) Parainfluenza 2 (PCR) Not Detected (NotDetected) Parainfluenza 3 (PCR) Not Detected (NotDetected) Parainfluenza 4 (PCR) Not Detected (NotDetected) RSV (PCR) Not Detected (NotDetected) Entero/Rhino (PCR) Not Detected (NotDetected) 06/13/24 06/13/24 Range/Units 11:21 11:47 WBC 12.62 H (4.8-10.8) K/ul RBC 4.36 (4.20-5.40) M/uL Hgb 12.9 (12.0-16.0) g/dl POC Hgb (12.0-16.0) g/dl Hct 35.1 L (37.0-47.0) % POC Hct (37-47) % MCV 80.5 (80.0-100.0) fL MCH 29.6 (25.0-34.0) pg MCHC 36.8 H (32.0-36.0) g/dL RDW Std Deviation 38.8 (36.4-46.3) fL RDW Coeff of Grecia 13.3 (11.5-14.5) % Plt Count 146 (130-400) K/uL MPV 12.0 (9.4-12.4) fL Immature Gran % (Auto) 0.6 % Neut % (Auto) 85.2 % Lymph % (Auto) 6.4 % [place] % (Auto) 7.5 % Eos % (Auto) 0.2 % Baso % (Auto) 0.1 % Neut # (Auto) 10.75 H (1.40-6.50) K/uL Lymph # (Auto) 0.81 L (1.20-3.40) K/uL [place] # (Auto) 0.95 H (0.11-0.59) K/uL Eos # (Auto) 0.03 (0.00-0.50) K/uL Baso # (Auto) 0.01 (0.00-0.20) K/uL Immature Gran # (Auto) 0.07 (0.01-0.20) K/uL PT (9.0-12.0) Seconds INR (0.9-1.1) APTT (21-31) Seconds PTT Ratio VBG pH 7.38 (7.36-7.41) VBG pCO2 40 (38-50) mmHg VBG pO2 26 mmHg VBG HCO3 24 mmol/L VBG O2 Saturation < 60.0 % VBG Base Excess -1.3 mEq/L POC Sodium (135-144) mmol/L Sodium (136-145) mmol/L POC Potassium (3.3-5.0) mmol/L Potassium (3.5-5.1) mmol/L POC Chloride (101-112) mmol/L Chloride (98-107) mmol/L Carbon Dioxide (21-32) mmol/L POC Total CO2 (24-31) mmol/L Anion Gap (3-11) POC Anion Gap (16-25) mmol/L POC BUN (7-18) mg/dl BUN (6-23) mg/dl Creatinine (0.6-1.2) mg/dl POC Creatinine (0.6-1.3) mg/dl Est Cr Clr Drug Dosing ml/min eGFR BUN/Creatinine Ratio (10-20) Glucose (70-99(Fasting)) mg/dl POC Glucose (other) (70-99) mg/dl Calcium (8.6-10.3) mg/dl POC Ioniz Calcium Lux (1.12-1.32) mmol/l Magnesium (1.7-2.4) mg/dl Total Creatine Kinase (26-192) U/L Troponin I High Sens (0-14) pg/ml B-Natriuretic Peptide 442 H (0-100) pg/ml Lipase (11-82) U/L Urine Color Yellow Urine Appearance Clear (Clear) Urine pH 5.5 (4.5-7.5) Ur Specific Boyd 1.020 (1.000-1.030) Urine Protein 1+ H (Negative) Urine Glucose (UA) Negative (Negative) Urine Ketones 1+ H (Negative) Urine Blood Negative (Negative) Urine Nitrite Negative (Negative) Urine Bilirubin Negative (Negative) Urine Urobilinogen Negative (Negative) Ur Leukocyte Esterase Negative (Negative) Urine WBC (Auto) 0-5 (0-5) /hpf Urine RBC (Auto) 0-2 (0-2) /hpf U Hyaline Cast (Auto) 3-5 H (0-2) /lpf U Epithel Cells (Auto) 0-2 (0-2) /hpf Urine Bacteria (Auto) None Seen (None Seen) Adenovirus (PCR) (NotDetected) B. pertussis DNA (PCR) (NotDetected) B.parapertussis DNA PCR (NotDetected) C. pneumoniae DNA (PCR) (NotDetected) Coronavirus OC43 (PCR) (NotDetected) Coronavirus HKU1 (PCR) (NotDetected) Coronavirus 229E (PCR) (NotDetected) SARS-CoV-2 (PCR) (NotDetected) Coronavirus NL63 (PCR) (NotDetected) Human Metapneumovir PCR (NotDetected) Influenza Type A (PCR) (NotDetected) Influenza Type B (PCR) (NotDetected) M. pneumoniae (PCR) (NotDetected) Parainfluenza 1 (PCR) (NotDetected) Parainfluenza 2 (PCR) (NotDetected) Parainfluenza 3 (PCR) (NotDetected) Parainfluenza 4 (PCR) (NotDetected) RSV (PCR) (NotDetected) Entero/Rhino (PCR) (NotDetected) Diagnostic Findings Abdomen/Pelvis CT 06/13/24 10:41 CT OF THE ABDOMEN AND PELVIS WITH CONTRAST CLINICAL HISTORY: trauma COMPARISON STUDY: Pelvis radiograph performed earlier today. TECHNIQUE: Following IV administration of 94 mL of Optiray, axial images of the abdomen and pelvis were obtained from the lung bases to the proximal femurs. Images were reviewed in the axial, sagittal, and coronal planes. IV contrast was administered without complication. Automated exposure control was utilized for the study. A dose lowering technique was utilized adhering to the principles of ALARA. FINDINGS: Moderate right and small left pleural effusions are present. Extensive associated bilateral lower lobe airspace opacities are present. Distal esophageal wall thickening is noted. There is body wall edema. There is also mild mesenteric edema as well as presacral fluid. Exam is mildly compromised by motion artifact. No hemoperitoneum or pneumoperitoneum is present. There is no evidence for traumatic injury to the liver, spleen, adrenal glands, kidneys or pancreas. There is a left lower pole renal cyst. There is no hydronephrosis. No biliary or pancreatic ductal dilatation is present. Prominent mucosal enhancement of the stomach and duodenum is present. There is no evidence for a bowel obstruction. The bladder is significantly distended. There are calcified fibroids. No acute fractures within the lumbar spine, pelvis or hips are identified. There are no fluid collections. IMPRESSION: 1. No acute traumatic findings within the abdomen or pelvis. Exam mildly compromised by motion artifact. 2. No acute fractures. 3. Evidence for volume overload. Body wall edema. Trace ascites within the abdomen and pelvis. 4. Distended bladder. 5. Prominent mucosal enhancement of the stomach and duodenum. This may be related to the phase of enhancement however gastritis/duodenitis could appear similar. ACT 112: Negative or not required by law. Electronically signed by: Jimi Jaramillo M.D. 06/13/2024 11:44 AM Chest X-Ray 06/13/24 10:41 XR chest 1V portable CLINICAL HISTORY: fall COMPARISON STUDY: Chest radiograph and chest CT February 04, 2021. FINDINGS: There is no pneumothorax. There is mild cardiomegaly. Interstitial thickening is noted. Bilateral perihilar prominence is symmetric. Moderate right and small left pleural effusions are present. IMPRESSION: 1. No pneumothorax. 2. Moderate right and small left pleural effusions with associated bibasilar opacities. 3. Interstitial pulmonary edema. ACT 112: Negative or not required by law. Electronically signed by: Jimi Jaramillo M.D. 06/13/2024 11:17 AM Pelvis X-Ray 06/13/24 10:41 XR pelvis 1-2V routine CLINICAL HISTORY: fall COMPARISON: Sacrum and coccyx radiographs September 10, 2013. FINDINGS: The bladder may be distended. There are no fractures within the pelvis or hips. There is mild bilateral hip osteophytosis IMPRESSION: 1. No fractures within the pelvis or hips. 2. Suspected bladder distention. ACT 112: Negative or not required by law. Electronically signed by: Jimi Jaramillo M.D. 06/13/2024 11:[address] 06/13/24 10:42 CT OF THE CERVICAL SPINE WITHOUT CONTRAST CLINICAL HISTORY: trauma COMPARISON STUDY: CTA of the neck May 10, 2022. TECHNIQUE: Helical axial images of the cervical spine were obtained without IV contrast. Sagittal and coronal reconstructions were viewed. Automated exposure control was utilized for the study. A dose lowering technique was utilized adhering to the principles of ALARA. FINDINGS: Alignment of the cervical spine is anatomic. Vertebral body heights are maintained. No acute cervical spine fracture or subluxation is present. There is no prevertebral edema. Facet joints are intact. Moderate multilevel degenerative disc disease and facet arthrosis is present. IMPRESSION: No acute cervical spine fracture or subluxation. ACT 112: Negative or not required by law. Electronically signed by: Jimi Jaramillo M.D. 06/13/2024 11:[address] 06/13/24 10:42 CT OF THE HEAD WITHOUT CONTRAST CLINICAL HISTORY: trauma COMPARISON STUDY: MRI of the brain May 22, 2017. Head CT May 10, 2022. TECHNIQUE: Helical axial images of the head were obtained without IV contrast. Automated exposure control was utilized for the study. A dose lowering technique was utilized adhering to the principles of ALARA. FINDINGS: No acute intracranial hemorrhage, midline shift or mass effect is present. White matter hypodensity suggests small vessel disease. The ventricular system is unremarkable. The basal cisterns are patent. No extra-axial collections are present. There are no findings to suggest acute dural sinus thrombosis or acute territorial infarct. There are no calvarial fractures. There are small air-fluid levels within the sphenoid sinuses. IMPRESSION: 1. No acute intracranial findings. 2. No calvarial fractures. ACT 112: Negative or not required by law. Electronically signed by: Jimi Jaramillo M.D. 06/13/2024 11:25 AM Femur X-Ray 06/13/24 10:46 XR femur LT 2V routine CLINICAL HISTORY: trauma COMPARISON: None FINDINGS: Alignment of the left hip and left knee is anatomic. There are no left femoral fractures. There are no osseous lesions. Mild left hip osteoarthritis. IMPRESSION: No left femoral fractures. ACT 112: Negative or not required by law. Electronically signed by: Jimi Jaramillo M.D. 06/13/2024 11:19 AM Femur X-Ray 06/13/24 10:46 XR femur RT 2V routine CLINICAL HISTORY: trauma COMPARISON: None FINDINGS: Alignment of the right hip and right knee is anatomic. There are no fractures within the right femur. There are no osseous lesions. There is mild right hip osteoarthritis. IMPRESSION: No right femoral fractures. ACT 112: Negative or not required by law. Electronically signed by: Jimi Jaramillo M.D. 06/13/2024 11:[address] 06/13/24 10:48 CT OF THE CHEST WITH IV CONTRAST CLINICAL HISTORY: trauma COMPARISON STUDY: Chest CT February 04, 2021. TECHNIQUE: Following IV administration of 94 mL of Optiray, helical axial images of the chest were obtained. Sagittal and coronal reconstructions were viewed as well as maximal intensity projections on an independent 3-D workstation. Automated exposure control was utilized for the study. A dose lowering technique was utilized adhering to the principles of ALARA. FINDINGS: There is no evidence for acute injury to the thoracic aorta. No mediastinal hematoma is present. There is mild cardiomegaly. No pericardial effusion is present. There is no pneumothorax. Moderate right and small left pleural effusions are present. Subpleural bilateral lower lobe airspace opacities are noted. There are moderate secretions within the lower lobe airways. No central obstructing mass is identified. No acute rib or thoracic spine fracture is identified. The abdomen and pelvis CT will be reported separately. Circumferential wall thickening of the esophagus is present. IMPRESSION: 1. No acute traumatic findings within the chest. 2. Moderate right and small left pleural effusions. Extensive associated bilateral lower lobe airspace opacities. These may reflect pneumonia or aspiration pneumonitis. Atelectasis could appear similar although pneumonia/aspiration pneumonitis is favored, particularly within the left lower lobe. 3. No pneumothorax. 4. Circumferential wall thickening of the esophagus. This may reflect esophagitis. ACT 112: Negative or not required by law. Electronically signed by: Jimi Jaramillo M.D. 06/13/2024 11:38 AM Medications Administered Discontinued Medications Calcium Gluconate (Calcium Gluconate 1000 Mg/60 Ml Nss) Confirm Administered Dose 1,000 mg IV .STK-MED ONE Stop: 06/13/24 10:49 Last Admin: 06/13/24 11:17 Dose: Not Given Documented By: GIULIANO Dexamethasone Sodium Phosphate (DexamethasonePf 10 Mg/Ml Vial) 6 mg IV NOW ONE Stop: 06/13/24 12:19 Last Admin: 06/13/24 12:27 Dose: 6 mg Documented By: GIULIANO Calcium Gluconate () 1,000 mg in 60 mls @ 240 mls/hr IV NOW STA Stop: 06/13/24 11:01 Last Infusion: 06/13/24 11:48 Dose: Infused Documented By: Admin: 06/13/24 11:17 Dose: 240 mls/hr Documented By: GIULIANO Sodium Chloride (Nss) 1,000 mls @ 999 mls/hr IV .[id number] ONE Stop: 06/13/24 11:48 Last Infusion: 06/13/24 12:04 Dose: 0 mls/hr Documented By: Admin: 06/13/24 11:17 Dose: 999 mls/hr Documented By: GIULIANO Sodium Chloride (Nss) 1,000 mls @ 80 mls/hr IV .[id number] AYANA Stop: 06/14/24 12:44 Last Admin: 06/13/24 13:12 Dose: 80 mls/hr Documented By: GIULIANO Ioversol (Optiray 320 125ml) 94 ml IV ONCE ONE Stop: 06/13/24 11:15 Last Admin: 06/13/24 11:15 Dose: 94 ml Documented By: PRATIK Supervising Physician Co-Signing Physician Notes Attending addendum: The patient was seen and examined in emergency room in presence of the son She was found by the police at her home on the floor following a wellness checkup She was seen to be normal 2 days back and was seen by her primary care physician on of this month and was diagnosed with COVID 19 virus infection and was given Paxlovid and Decadron She was noted to be acute hypoxic respiratory failure and required BiPAP in the emergency room and also hyponatremic at 121 Also noted to have bibasilar infiltrate could be secondary to aspiration pneumonia and she was admitted to telemetry unit for continuation of care On examination Hemodynamically stable on BiPAP and has been communicating and denies any significant symptoms Chestdecreased breath sound bilaterally with dependent crackles and at the bases HeartS1, S2 regular Abdomenbenign Extremitiesno edema CNSalert and awake. Generally weak but moves all extremities Her admission labs and imaging studies reviewed, EKG is pending Noted to have white count of 12.62 and sodium of 121 with slightly elevated LFTs and CK was high at 2446 with BNP elevated at 442 CT of the chest showed possible bibasilar opacities representing aspiration pneumonitis She was started with BiPAP and also intravenous antibiotic with Zosyn and doxycycline to cover atypicals It Network Engineer was consulted Will need to nephrology evaluation due to hyponatremia Fluid management as per commercial loan specialist Agree with assessment and plan as outlined above by Freya Quiroz PA-C and take the full responsibility of care in the hospital Dr Zoraida javed (2) Rhabdomyolysis Rhabdomyolysis type: non-traumatic Qualified Code(s): M62.82 - Rhabdomyolysis (5) Raynauds phenomenon Raynaud?s-associated gangrene presence: without gangrene Qualified Code(s): I73.00 - Raynaud's syndrome without gangrene
[2024-06-13 14:28] LABS: Albumin Level 3.1 gm/dl (3.4-5.0); Bilirubin Direct 0.3 mg/dl (0-0.2); Total Protein 5.3 gm/dl (6.0-8.3)
[2024-06-13] MEDS: 4.5GM X1 IV ONE (14:54)
[2024-06-13] MEDS: DOXYCYCLINE HYCLATE 100 MG in DEXTROSE 5% MINI-B 100 ML IV SCH (15:48)
[2024-06-13 19:34] LABS: BUN Creatinine Ratio 31.9 (10-20); Calcium 8.9 mg/dl (8.6-10.3); Creatinine Clr Calc Pharmacy 65.2 ml/min; Potassium 4.6 mmol/L (3.5-5.1)
--- NOTE | 2024-06-13 19:39 | Electrocardiogram Report ---
Test Reason : Blood Pressure : */* mmHG Vent. Rate : 77 BPM Atrial Rate : 77 BPM P-R Int : 144 ms QRS Dur : 76 ms QT Int : 394 ms P-R-T Axes : 61 69 73 degrees QTcB Int : 445 ms Normal sinus rhythm Nonspecific ST abnormality Abnormal ECG When compared with ECG of 18-Nov-2022 12:41, Significant changes have occurred Confirmed by Marcelo Up ([id number]) on 06/13/2024 7:38:58 PM Referred By: REFERRED SELF Confirmed By: Marcelo Up
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
--- OUTSIDE RECORDS SUMMARY | 2024-06-13 19:49 | External Medical Summary | Summary of Care ---
Author Name Unknown Organization [facility] Address [address] [place] [address] Phone [phone] Care Team Providers Care Rotor Winder Name Role Phone Dyana Blandon MD Primary Care Provid er Reason for Visit * Reason Comments Acute Patient is here with complaints of a sore throat since Saturday. She has a cough as well and slight diarrhea. She has not taken anything for her symptoms. Encounter Details Date Type Department Care Team (Late st Contact Info) Description 06/08/2024 3:20 PM EST Office Visit Located Within [facility] [address] [place] [address] NovemberJameson MD [address] [place] [address] Viral URI with cough* Allergies Active Allergy Reactions Criticality Noted Date Comments Estrogens 06/09/2002 Nickel 06/06/2018 Skin irritation Bacitracin-Polymyxin B Rash 10/19/2014 Trimethoprim 01/05/2002 septra DS documented as of this encounter (statuses as of 06/08/2024) Medications Cholecalciferol (VITAMIN D) 1000 UNITS Tablet [...] for Fever >38C(100.5F). 250 Tablet 4 Active documented as of this encounter (statuses as of 06/08/2024) Active Problems Problem Noted Date Diagnosed Date [...] as of this encounter (statuses as of 06/08/2024) Resolved Problems Problem Noted Date Diagnosed Date Resolved Date Essential (primary) hypertension 01/30/2023 05/22/2024 Ankle ulcer, left, with unspecified severity 1 05/11/2022 Encounter for surveillance of abnormal nevi 09/11/2018 09/11/2018 H/O dysplastic nevus 09/11/2018 019 Overview (09/18/2018): Moderately dysplastic nevus (central upper back), dysplastic nevus (mid back) SKIN HYPERTRO-ATROPH NOS 06/09/2002 dysplastic mole-back 06/09/2002 017 Hypokalemia 06/27/2020 documented as of this encounter (statuses as of 06/08/2024) Immunizations Name Administration Dates Next Due COVID-19 mRNA, LNP-s, No Pre serve, 2-Dose Series ([email or web address]) 05/16/2021,10/28/2020,10/06/2020 COVID-19, LNP-s, No Preserve , Jaison-sucrose, Ages 12+ (Pfizer) 01/30/2022 Covid-19, Mrna, Lnp-s, Pf, B ivalent, 30 Mcg, IM, 12 yrs and above ([email or web address]) 07/24/2022 Pneumococcal Conjugate Vacc, 13 Valent (Prevnar) [...] 05/21/2024 Does the household have a re lar source of income? (Household - for ages [...] Not on file nicol - works in [employer] Not on file Not on file Not [...] documented in this encounter Progress Notes * Jameson Pederson MD - 06/08/2024 3:36 PM EST Images from the original note were not included. Assessment and Plan 1. Viral URI with cough (Primary) Viral swab collected in office today. Discussed appropriate [id number] medications for supportive care. Push fluids. Work [...] note has been completed in part utilizing [employer] Voice [employer]ognition Software. Due to technical [...] for her symptoms. documented in this encounter Plan of Treatment Upcoming Encounters Date Type Department Care Team (Late st Contact Info) Description 06/15/2024 1:00 PM EST Imaging Radiology, [facility] [address] [facility] [place] [address] 06/19/2024 1:20 PM EST Office Visit Podiatry [facility] [address] [facility] [place] [address] Tigist Chavez DPM [address] [place] [address] [place] [address] 11/20/2024 2:40 PM EDT Office Visit Family [facility] [address] [place] [address] Dyana Blandon MD [address] [place] [facility] [place] [address] 02/02/2025 3:00 PM EDT Office Visit Dermatology, [facility] [address] [place] [facility] [place] [address] Echo Dye PA-C [address] [place] [address] [place] [address] Pending Results Name Type Priority Associated Diagnoses Date /Time INFLUENZA A/B RSV SARS-COV2,PCR Lab Routine Viral URI with cough 06/08/2024 4:01 PM EST Scheduled Orders Name Type Priority Associated Diagnoses Orde r Schedule INFLUENZA A/B RSV SARS-COV2,PCR Lab Routine Viral URI with cough Expected: 06/08/2024 (Approximate), Expires: 06/08/2025 Scheduled Procedures Name Priority Associated Diagnoses Date/Ti me COLONOSCOPY FLEXIBLE PROXIMAL DIAGNOSTIC Recall History of colon polyps Health Maintenance Due Date Last Done Comments Cologuard 1997 Fecal Occult Blood Test 1997 Sigmoidoscopy 1997 Adult Wellness Visit 2018 Influenza Vaccine (FLU shot) (#1) 2024 04/16/2023, 05/01/2022, 05/02/2021, Additional history exists Mammogram 06/26/2024 06/26/2023, 12/2022, 06/21/2022, Additional history exists Lipid Panel 03/15/2025 03/15/2020, 05/16/2017 Depression Screening 05/22/2025 05/22/2024 Colonoscopy 06/28/2026 06/28/2021, 1202/2021, 06/20/2018, Additional history exists Colorectal Cancer Screening [...] Not on filedocumented as of this encounter Visit Diagnoses Diagnosis Viral URI with cough- Primary Acute upper respiratory infections of unspecified site documented in this encounter Care Teams Rotor Winder Relationship Specialty Start Date End Date Dyana Blandon MD [address] [place] [address] PCP - General Family Medicine 12/06/21 documented as of this encounter
--- OUTSIDE RECORDS SUMMARY | 2024-06-13 19:50 | External Medical Summary ---
Author Name Unknown Address Unknown Organization K01:[facility] - [address] [facility] [place] [place] [address] Laboratory Report Ordering Provider Test Date Status AFSHIN TUCKER 05/22/2024 15:16:16 Final Observation Date Value Abnormality Reference (Units ) Status WBC, Total 05/22/2024 15:16:16 5.66 4.00-10.8 0 (K/uL) Final RBC 05/22/2024 15:16:16 4.59 3.85-5.15 (M/uL) Final Hemoglobin 05/22/2024 15:16:16 14.1 12.0-15.3 (g/dL) Final Anemia reflex testing trigge rs on a HGB < 12.0 for Females and HGB < 13.0 for Males in accordance with the WHO Anemia Guidelines HCT 05/22/2024 15:16:16 41.3 36.0-45.2 (%) Final MCV 05/22/2024 15:16:16 90.0 81.5-97.5 (fL) Final MCH 05/22/2024 15:16:16 30.7 27.0-34.0 (pg) Final MCHC 05/22/2024 15:16:16 34.1 32.0-36.0 (g/dL) Final RDW 05/22/2024 15:16:16 15.3 11.5-15.5 (%) Final Platelets 05/22/2024 15:16:16 204 140-400 (K /uL) Final MPV 05/22/2024 15:16:16 12.5 6.6-11.1 ( fL) Final Nucleated erythrocytes/100 leukocytes [Ratio] in Blood by Automated count 05/22/2024 15:16:16 0 <=0 (/100 WBCs) Fi nal Performing Location LAB[facility]ATORY [facility] - [address] [place] [address]
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
--- OUTSIDE RECORDS SUMMARY | 2024-06-13 19:50 | External Medical Summary | Summary of Care ---
Author Name Unknown Organization [facility] Address [address] [place] [address] Phone [phone] Care Team Providers Care Textile Knitter Name Role Phone Dyana Blandon MD Primary Care Provid er Reason for Visit * Reason Comments Acute Patient is here with complaints of a sore throat since Saturday. She has a cough as well and slight diarrhea. She has not taken anything for her symptoms. Encounter Details Date Type Department Care Team (Late st Contact Info) Description 06/08/2024 3:20 PM EST Office Visit [facility] [address] [place] [address] NovemberJameson MD [address] [place] [address] Viral URI with cough* Allergies [...] mRNA, LNP-s, No Pre serve, 2-Dose Series ([employer]) 05/16/2021,10/28/2020,10/06/2020 COVID-19, LNP-s, No Preserve , Jaison-sucrose, Ages 12+ (Pfizer) 01/30/2022 Covid-19, Mrna, Lnp-s, Pf, B ivalent, 30 Mcg, IM, 12 yrs and above ([employer]) 07/24/2022 Pneumococcal Conjugate Vacc, 13 Valent (Prevnar) [...] Not on file nicol - works in [employer] Not on file Not on file Not [...] swab collected in office today. Discussed appropriate dzhj-xbp-rodneve medications for supportive care. Push fluids. Work [...] note has been completed in part utilizing [employer] Speech Voice Recognition Software. Due to technical [...] Description 06/15/2024 1:00 PM EST Imaging Radiology, [facility] [address] [facility] [place] [address] 06/19/2024 1:20 PM EST Office Visit Podiatry [facility] [address] [facility] [place] [address] Tigist Chavez DPM [address] [place] [address] [place] [address] 11/20/2024 2:40 PM EDT Office Visit Family [facility] [address] [place] [address] Dyana Blandon MD [address] [place] [address] 02/02/2025 3:00 PM EDT Office Visit Dermatology, [place] [address] [place] [facility] [address] Echo Dye PA-C [address] [place] [address] [place] [address] Scheduled Orders Name Type Priority Associated Diagnoses [...] site documented in this encounter Care Teams Textile Knitter Relationship Specialty Start Date End Date Dyana Blandon MD [address] [place] [address] PCP - General Family Medicine 12/06/21 documented as of this encounter
--- OUTSIDE RECORDS SUMMARY | 2024-06-13 19:50 | External Medical Summary ---
Author Name Unknown Address Unknown Organization K01:[facility] - [address] [place] [id number] Laboratory Report Ordering Provider Test Date Status AFSHIN TUCKER 05/22/2024 15:16:16 Final Observation Date Value Abnormality Reference (Units ) Status Hep C Ab 05/22/2024 15:16:16 Negative Negative Final Further HCV quantitative ulises ting not performed per protocol. Performing Location [facility] - [address] [place] [id number]
--- OUTSIDE RECORDS SUMMARY | 2024-06-13 19:50 | External Medical Summary | Summary of Care ---
Author Name Unknown Organization [facility] Address [address] [place] [address] Phone [phone] Care Team Providers Care Incident Engineer Name Role Phone Dyana Blandon MD Primary Care Provid er Reason for Visit * Reason Comments Acute Patient is here with complaints of a sore throat since Saturday. She has a cough as well and slight diarrhea. She has not taken anything for her symptoms. Encounter Details Date Type Department Care Team (Late st Contact Info) Description 06/08/2024 3:20 PM EST Office Visit [facility] [address] [place] [address] NovemberJameson MD [address] [place] [address] Viral URI with cough* Allergies [...] mRNA, LNP-s, No Pre serve, 2-Dose Series (ReferralMD) 05/16/2021,10/28/2020,10/06/2020 COVID-19, LNP-s, No Preserve , Jaison-sucrose, Ages 12+ (Pfizer) 01/30/2022 Covid-19, Mrna, Lnp-s, Pf, B ivalent, 30 Mcg, IM, 12 yrs and above (ReferralMD) 07/24/2022 Pneumococcal Conjugate Vacc, 13 Valent (Prevnar) [...] Not on file nicol - works in [employer] Not on file Not on file Not [...] swab collected in office today. Discussed appropriate julw-yyh-uumqanw medications for supportive care. Push fluids. Work [...] note has been completed in part utilizing [employer] Speech Voice Recognition Software. Due to technical [...] Description 06/15/2024 1:00 PM EST Imaging Radiology, [facility] [address] [facility] [place] [address] 06/19/2024 1:20 PM EST Office Visit Podiatry [facility] [address] [facility] [place] [address] Tigist Chavez DPM [address] [place] [address] [place] [address] 11/20/2024 2:40 PM EDT Office Visit [facility] [address] [place] [address] Dyana Blandon MD [address] [facility] [place] [address] 02/02/2025 3:00 PM EDT Office Visit Dermatology, [place] [address] [facility] [place] [address] Echo Dye PA-C [address] [place] [address] [place] [address] Pending Results Name Type Priority Associated Diagnoses [...] site documented in this encounter Care Teams Incident Engineer Relationship Specialty Start Date End Date Dyana Blandon MD [address] [place] [address] PCP - General Family Medicine 12/06/21 documented as of this encounter
--- OUTSIDE RECORDS SUMMARY | 2024-06-13 19:50 | External Medical Summary ---
Author Name Unknown Address Unknown Organization [id number][place] [facility] [place] [address] [place] [address] Laboratory Report Ordering Provider Test Date Status AFSHIN TUCKER 05/22/2024 15:16:16 Final Observation Date Value Abnormality Reference (Units ) Status Vitamin B12 05/22/2024 15:16:16 [phone] (pg/mL) Final Performing Location LABORATORY [facility] - [address] [place] [address]
--- OUTSIDE RECORDS SUMMARY | 2024-06-13 19:50 | External Medical Summary ---
Author Name Unknown Address Unknown Organization [id number][place] [facility] [place] [address] [facility] [place] [address] Laboratory Report Ordering Provider Test Date Status GARRETTAFSHIN 05/22/2024 15:16:16 Final Observation Date Value Abnormality Reference (Units ) Status SYNC LEUKOCYTES IN BLOOD BY AUTOMATED COUNT 05/22/2024 15:16:16 5.66 4.00-10.80 (K/uL) Final Segs 05/22/2024 15:16:16 58.3 40.0-75.0 (%) Final Lymphs % 05/22/2024 15:16:16 29.5 18.0-42.0 (%) Final Monos 05/22/2024 15:16:16 8.7 1.0-11.0 (%) Final Eosinophils 05/22/2024 15:16:16 2.7 0.0-6.0 (%) Final Basos 05/22/2024 15:16:16 0.4 0.0-2.0 (%) Final Immature Granulocyte, Percent 05/22/2024 15:16:16 0.4 0.0-2.0 (%) Final Absolute Segs 05/22/2024 15:16:16 3.31 1.80-7.70 (K/uL) Final Lymphs, absolute 05/22/2024 15:16:16 1.67 1.00-4.80 (K/ul) Final Monos, Abs 05/22/2024 15:16:16 0.49 0.00-1.10 (K/uL) Final Eos, Abs 05/22/2024 15:16:16 0.15 0.00-0.70 (K/uL) Final Basos, Abs 05/22/2024 15:16:16 0.02 0.00-0.20 (K/uL) Final Immature Granulocytes, Number 05/22/2024 15:16:16 0.02 0.00-0.20 (K/uL) Final Performing Location [place] [facility] [place] [address] [facility] [address]
--- OUTSIDE RECORDS SUMMARY | 2024-06-13 19:50 | External Medical Summary ---
Author Name Unknown Address Unknown Organization [id number]:[place] [facility] [place] [address] [facility] [address] Laboratory Report Ordering Provider Test Date Status KERRIE,06/08/2024 16:01:45 Final Observation Date Value Abnormality Reference (Units ) Status SARS Coronavirus 2 06/08/2024 16:01:45 Positive Abnormal N egative Final SARS-CoV2 Coronavirus RNA de tected by PCR (amplified probe). Test results reported to [facility].
This automated test was developed and its performance characteristics determined by [employer]. It has not been cleared or approved [...] SARS-CoV-2 diagnosis, surveillance, and travel within the [place] and to most countries. Please check with local testing authorities about requirements before travel.

The validation of bronchial specimens, tracheal aspirates, and sputum for this assay was developed and performance characteristics determined by [employer]. The validation of alternate specimen types has not been cleared or approved by the U.S. Food and Drug Administration (FDA). It has been determined that such clearance or approval is not necessary. Influenza virus A RNA [Prese nce] in Specimen by [employer] with probe detection 06/08/2024 16:01:45 Negative Negative Final No Influenza A RNA detected by PCR (amplified probe) Influenza virus B RNA [Prese nce] in Specimen by [employer] with probe detection 06/08/2024 16:01:45 Negative Negative Final No Influenza B RNA detected by PCR (amplified probe) Respiratory syncytial virus RNA [Identifier] in Specimen by [employer] with probe detection 06/08/2024 16:01:45 Negative Negative Final No Respiratory Syncytial Vir us RNA detected by PCR (amplified probe) Performing Location LABORATORY [place] [address] [facility] [address]
--- OUTSIDE RECORDS SUMMARY | 2024-06-13 19:50 | External Medical Summary ---
Author Name Unknown Address Unknown Organization K01:[facility] [place] - [facility] [address] [facility] [address] [place] [address] Laboratory Report Ordering Provider Test Date Status AFSHIN TUCKER 05/22/2024 15:16:16 Final Observation Date Value Abnormality Reference (Units ) Status BUN 05/22/2024 15:16:16 16 6-20 (mg/dL) Final Creatinine 05/22/2024 15:16:16 0.8 0.5-1.0 (mg/dL) Final Glomerular filtration rate/1.73 sq M.predicted [Volume Rate/Area] in Serum, Plasma or Blood by Creatinine-based formula (CKD-EPI) 05/22/2024 15:16:16 83 >=60 (mL/min) Final eGFR is calculated based on the CKD-EPI 2020 equation. Sodium 05/22/2024 15:16:16 138 135-146 (m mol/L) Final Potassium 05/22/2024 15:16:16 3.8 3.5-5.1 (m mol/L) Final Cl 05/22/2024 15:16:16 100 98-107 (mm ol/L) Final CO2 05/22/2024 15:16:16 25 22-32 (mmo l/L) Final Anion gap 05/22/2024 15:16:16 13 7-15 (mmol /L) Final Glucose 05/22/2024 15:16:16 82 70-120 (mg /dL) Final Calcium 05/22/2024 15:16:16 9.6 8.4-10.2 ( mg/dL) Final Performing Location LABORATORY [facility] [place] - [facility] [address] [place] [address]
--- OUTSIDE RECORDS SUMMARY | 2024-06-13 19:50 | External Medical Summary | Summary of Care ---
Author Name Unknown Organization [facility] Address [address] [place] [address] Phone [phone] Care Team Providers Care Limited Radiology Technician Name Role Phone Dyana Blandon MD Primary Care Provid er Reason for Visit * Reason Comments Outpatient Testing Encounter Details Date Type Department Care Team (Late st Contact Info) Description 05/22/2024 3:10 PM EDT Laboratory Laboratory, [place] [address] [place] [address] [place], Laboratory [address] [place], [place] [id number] Need for hepatitis C screening test; Vertigo; Raynaud's disease without gangrene; Hypokalemia; Cold sore; Chronic vertigo; Dissociative disorder or reaction; Protein-calorie malnutrition, unspecified severity (HCC); Encounter for long-term (current) use of medications [...] 05/22/2024 Triamcinolone Acetonide 0.1 % External Ointment (Aristocort)Indicat [...] 05/22/2024 Meclizine HCl 25 MG Oral Tablet ChewableIndications :Chronic vertigo Take 1 Tablet by mouth 3 [...] FOR 2 DOSES 12 Tablet 05/22/2024 Active documented as of this encounter (statuses [...] mRNA, LNP-s, No Pre serve, 2-Dose Series ([employer]) 05/16/2021,10/28/2020,10/06/2020 COVID-19, LNP-s, No Preserve , Jaison-sucrose, [...] on file documented as of this encounter Plan of Treatment Upcoming Encounters Date Type Department Care Team (Late st Contact Info) Description 06/15/2024 1:00 PM EST Imaging Radiology, [facility] [address] [facility] [place] [address] 06/19/2024 1:20 PM EST Office Visit Podiatry [facility] [address] [facility] [place] [address] Tigist Chavez, DPM [address] [facility] [place] [address] 11/20/2024 2:40 PM EDT Office Visit [facility] [address] [facility], [place] [address] Dyana Blandon MD [address] [facility] [place] [address] 02/02/2025 3:00 PM EDT Office [facility], [place] [address] [facility] [address] Echo Dye PA-C [address] [place] [address] [place] [address] Pending Results Name Type Priority Associated Diagnoses [...] use of medications 05/22/2024 3:16 PM EDT HEPATITIS C ANTIBODY Lab Routine Need for hepatitis C screening test 05/22/2024 3:16 PM EDT HEPATITIS C RNA ADD ON Lab Routine Need for hepatitis C screening test 05/22/2024 3:16 PM EDT ANEMIA CBC Lab Routine Need for hepatitis C screening test Vertigo Raynaud's disease without gangrene Hypokalemia Cold sore Chronic vertigo Dissociative disorder or reaction Protein-calorie malnutrition, unspecified severity (HCC) 05/22/2024 3:16 PM EDT DIFFERENTIAL, AUTOMATED Lab Routine Need for hepatitis C screening test Vertigo Raynaud's disease without gangrene Hypokalemia Cold sore Chronic vertigo Dissociative disorder or reaction Protein-calorie malnutrition, unspecified severity (HCC) 05/22/2024 3:16 PM EDT ANEMIA REFLEX CHEMISTRY HOLD Lab Routine Need for hepatitis C screening test Vertigo Raynaud's disease without gangrene Hypokalemia Cold sore Chronic vertigo Dissociative disorder or reaction Protein-calorie malnutrition, unspecified severity (HCC) 05/22/2024 3:16 PM EDT Scheduled Procedures Name Priority Associated Diagnoses Date/Ti [...] Depression Screening 05/22/2025 05/22/2024 Colonoscopy 06/28/2026 06/28/2021, 120 02/2021, 06/20/2018, Additional history exists Colorectal Cancer Screening 06/28/2026 DXA Scan 06/05/2029 06/05/2022, 07/21/2019 DTap/Tdap Vaccines (3 - Td or Tdap) 06/10/2033 06/10/2023, 06/30/2014 Zoster Vaccines Completed 07/05/2020, 0 09/2019, 05/15/2012 Pneumococcal Vaccine: 65+ Years Completed [...] as of this encounter Visit Diagnoses Diagnosis Need for hepatitis C screening test Special screening examination for other specified viral diseases Vertigo Dizziness and giddiness Raynaud's disease without gangrene Hypokalemia Hypopotassemia Cold sore Herpes simplex without mention of complication Chronic vertigo 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
[2024-06-13] MEDS: PIPERACILLIN/TAZOBACTAM 4.5 GM/100 ML BAG IV SCH (20:02)
[2024-06-13] MEDS: FUROSEMIDE INJ 20 MG/2 ML VIAL IV ONE (20:29)
[2024-06-14 01:14] LABS: Creatinine Clr Calc Pharmacy 54.9 ml/min; Potassium 4.4 mmol/L (3.5-5.1)
[2024-06-14 04:58] LABS: Hematocrit (blood only) 35.3 % (37.0-47.0); Hemoglobin 12.5 g/dl (12.0-16.0); Mean Corpuscular Hemoglobin 29.6 pg (25.0-34.0); Mean Corpuscular Hgb Conc 35.4 g/dL (32.0-36.0); Mean Corpuscular Volume 83.5 fL (80.0-100.0); Mean Platelet Volume 10.9 fL (9.4-12.4); Platelet Count 169 K/uL (130-400); RDW Coefficient of Variation 13.7 % (11.5-14.5); RDW Standard Deviation 41.8 fL (36.4-46.3); Red Blood Count 4.23 M/uL (4.20-5.40); White Blood Count 12.12 K/ul (4.8-10.8)
[2024-06-14 06:07] LABS: Basophils # (auto) 0.01 K/uL (0.00-0.20); Basophils % (auto) 0.1 %; Immature Granulocytes # (auto) 0.08 K/uL (0.01-0.20); Immature Granulocytes % (auto) 0.7 %; Lymphocytes % (auto) 3.3 %; Monocytes # (auto) 0.55 K/uL (0.11-0.59); Monocytes % (auto) 4.5 %; Neutrophils # (auto) 11.08 K/uL (1.40-6.50); Neutrophils % (auto) 91.4 %
[2024-06-14 06:56] LABS: Alanine Aminotransferase 100 U/L (7-52); Albumin Level 3.4 gm/dl (3.4-5.0); Alkaline Phosphatase 69 U/L (34-104); Anion Gap 17 (3-11); BUN Creatinine Ratio 27.6 (10-20); Bilirubin,Total 1.1 mg/dl (0.2-1.0); Blood Urea Nitrogen 24 mg/dl (6-23); Calcium 8.3 mg/dl (8.6-10.3); Carbon Dioxide 17 mmol/L (21-32); Chloride 87 mmol/L (98-107); Creatine Kinase 1138 U/L (26-192); Creatinine Clr Calc Pharmacy 51.7 ml/min; Glucose 164 mg/dl (70-99(Fasting)); Sodium 121 mmol/L (136-145); Total Protein 6.6 gm/dl (6.0-8.3)
--- NOTE | 2024-06-14 07:56 | Pulmonary Consultation ---
Date of Consultation June 14, 2024 Assessment & Plan (1) Bilateral pleural effusion: (2) Raynauds phenomenon: Raynaud?s-associated gangrene presence: without gangrene Qualified Code(s): I73.00 - Raynaud's syndrome without gangrene (3) Acute hypoxic respiratory failure: (4) COVID-19: (5) Abnormal chest CT: Plan 74-year-old female present to the hospital post fall. Was found to be COVID- positive and having bilateral pleural effusion. Pulmonary consulted for hypoxia and pleural effusion Past medical history: Chronic venous insufficiency, Raynaud's, vertigo CT chest 06/13/2024 personally reviewed: Moderate to large right-sided and small to moderate left-sided pleural effusion Compressive atelectasis of bilateral lower lobes Small hiatal hernia No significant mediastinal lymphadenopathy -- Bilateral pleural effusion Right> left Likely from cardiac etiology BNP 442 Respiratory [employer] positive for COVID-19 Procalcitonin 0.36 -- COVID-19 positive I do not see any groundglass opacities on the CAT scan of the chest I do not think patient has COVID-19 pneumonia Plan: Although the patient CPK is high she does have significant evidence of volume overload with bilateral pleural effusion Would recommend to avoid IV fluid, I would rather have the patient diuresed with a.m. of -1 L daily BiPAP nightly and as needed shortness of breath Follow-up nasal MRSA Recommend 2D echo if not already done Given the patient is very lethargic, I will order TSH. Pulmonary will continue to follow Please note the above document was generated using voice recognition software. It may contain grammatical, syntax or spelling errors.Any formal questions or concerns about the content, text or information contained within the body of this dictation should be directly addressed to the provider for clarification. History of Present Illness Attending Physician: Jen Day MD History of Present Illness 74-year-old female present to the hospital post fall Past medical history: Chronic venous insufficiency, Raynaud's, vertigo Pulmonary consulted for hypoxia and pleural effusion Patient's son were in the room at the time of examination. At the time of examination patient was on 4 L oxime mask. Saturating 96%. Not in any respiratory distress She denied any chest pain. Shortness of breath is getting better Did complain of cough. Denies any difficulty bringing it up. No chest congestion. No dysuria or diarrhea prior to coming to the hospital She did test positive for COVID on 1116 and was supposed to take Paxlovid but she was not able to. She does have Raynaud's and takes nifedipine for it. No unusual headache or blurry vision Social history: Lifetime non-smoker Allergies Allergy/AdvReac Type Severity Reaction Status Date / Time Estrogens Allergy Mild ` Verified 03/16/24 08:37 bacitracin Allergy Unknown POLYSPORIN Verified 03/16/24 08:37 polymyxin B Allergy Unknown POLYSPORIN Verified 03/16/24 08:37 Sulfa (Sulfonamide AdvReac Unknown ` Verified 03/16/24 08:37 Antibiotics) sulfamethoxazole AdvReac Unknown ` Verified 03/16/24 08:37 trimethoprim AdvReac Unknown ` Verified 03/16/24 08:37 Home Medications Medication Instructions Recorded Confirmed Type aspirin 81 mg tablet,delayed 81 mg PO UD 09/22/20 06/13/24 History release cholecalciferol (vitamin D3) 25 25 mcg PO DAILY 09/22/20 06/13/24 History mcg (1,000 unit) capsule nifedipine 90 mg tablet,extended 90 mg PO QAM 10/20/20 06/13/24 History release potassium chloride 10 mEq 10 meq PO QAM 10/20/20 06/13/24 History capsule,extended release valacyclovir 1 gram tablet 2,000 mg PO Q12H PRN Cold Sores 10/20/20 06/13/24 History meclizine 25 mg tablet 25 mg PO TID PRN dizziness #20 tabs 09/22/21 06/13/24 Rx ascorbic acid (vitamin C) 500 mg 500 mg PO DAILY 11/18/22 06/13/24 History tablet (Vitamin C) calcium carbonate 500 mg PO DAILY 11/18/22 06/13/24 History cetirizine 10 mg tablet (Zyrtec) 10 mg PO DAILY PRN Other 11/18/22 06/13/24 History lactase 9,000 unit chewable tablet 9,000 unit PO AC PRN .Intolerance 11/18/22 06/13/24 History (Lactaid Fast Act) sennosides 8.6 mg tablet (senna) 8.6 mg PO UD 11/18/22 06/13/24 History nirmatrelvir 300 mg (150 mg 1 ea PO DIRECTED 06/13/24 06/13/24 History x2)-ritonavir 100 mg tablet,dose pack (Paxlovid) Patient History Medical History Sensorineural hearing loss (SNHL) of both ears AD: mild HF SNHL, : mild to mod SNHL Chronic venous insufficiency of lower extremity History of 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 Dermatitis, eczematoid Dysplastic nevus Raynauds phenomenon Rosacea TMJ (temporomandibular joint syndrome) Vitamin D deficiency Fracture, sacrum/coccyx Surgical History History of breast lump/mass excision Status post endovenous radiofrequency ablation of saphenous vein H/O inguinal hernia repair Hx of tonsillectomy S/P endometrial ablation H/O tubal ligation Family History Father Stroke Other Diabetes Social History Smoking Status: Never smoker Tobacco Type: Cigarettes Do You Dip or Chew Tobacco: No; Hx Alcohol Use: No Hx Substance Use: No Preferred Language: Citizen [place] Communication Ability: Effective Visual Impairment: Limited Hearing Ability: Use of Hearing Aid Ict Managers Required: No Beliefs That Will Affect Care: None marital status: Single Current Living Situation: Alone current occupational status: employed current occupation: [employer] associate How many Children do You have: 2 How many Children do You have Comment: one son lives locally that is able to assist as needed Feels Safe at Home: Yes Safety Concerns: Feels Safe At This Time during the past year weight has: remained stable Assistive Devices: Glasses Review of Systems 2 Review of Systems: All systems reviewed & are unremarkable except as noted in HPI & below Physical Exam 2 Physical Exam: Constitutional: No acute distress HEENT: EOMI, PERRLA Respiratory system: Decreased air entry bilaterally, no wheeze, no rhonchi, positive crackles bilateral lower lobes CVS: S1-S2 positive Abdomen: Soft, nontender, nondistended, positive bowel sounds x4 Extremities: +2 pulses bilaterally radialis/ dorsalis pedis, no cyanosis, minimal pitting edema bilateral lower extremity Neuro: Awake alert oriented x3 Psych: Normal mood and affect G/U: Positive Vigil Skin: no rashes, warm and dry Lymphatic: no cervical or axillary lymphadenopathy Results & Data Results & Data Vital Signs (Past 12 Hours) Vital Signs Temp Pulse Pulse Resp BP Pulse Ox O2 Del Method 06/14/24 07:05 83 06/14/24 06:00 96 Oxymask 06/14/24 03:40 36.5 C 85 20 114/63 99 BiPAP 06/14/24 00:18 84 24 100 06/13/24 23:59 36.5 C 82 24 115/65 96 BiPAP 06/13/24 21:43 79 06/13/24 20:00 BiPAP 06/13/24 19:52 36.7 C 86 24 112/65 94 BiPAP O2 Flow Rate FiO2 06/14/24 07:05 06/14/24 06:00 4 06/14/24 03:40 06/14/24 00:18 70 06/13/24 23:59 06/13/24 21:43 06/13/24 20:00 70 06/13/24 19:52 70 Laboratory Results 06/14/24 04:26 PG Care Time/CCT Total # of Minutes Spent Total Time Spent with Patient: Total time spent is greater than 50% in coordination of care (as documented) at patient's floor/unit and/or counseling patient: Coding Level of Care Code 90769 INT INP/OBS CARE 3/75MIN Diagnoses Bilateral pleural effusion J90 Raynaud's phenomenon without gangrene I73.00 Raynaud?s-associated gangrene presence: without gangrene Acute hypoxic respiratory failure J96.01 COVID-[address] R93.89
[2024-06-14 08:09] LABS: Bilirubin Direct 0.2 mg/dl (0-0.2); Potassium 4.2 mmol/L (3.5-5.1)
[2024-06-14 09:06] LABS: BUN Creatinine Ratio 28.9 (10-20); Calcium 8.8 mg/dl (8.6-10.3); Potassium 4.2 mmol/L (3.5-5.1)
[2024-06-14] MEDS: dexAMETHasone 6 MG in SYRINGE 0 ML IV SCH (09:10)
[2024-06-14] MEDS: NIFEdipine EXTENDED REL 30 MG TABCR PO SCH (09:10)
[2024-06-14] MEDS: ASPIRIN 81 MG ECTAB PO SCH (09:11)
[2024-06-14] MEDS: ENOXAPARIN INJ 40 MG/0.4 ML SYR SQ SCH (09:11)
--- NOTE | 2024-06-14 11:08 | Hospitalist Progress Note ---
Date of Service June 14, 2024 Assessment & Plan (1) Acute hypoxic respiratory failure: (2) Bilateral pleural effusion: (3) COVID-19: Plan: 74 year old woman with Raynaud's, chronic vertigo, thoracic ascending aneurysm, chronic venous insufficiency with history of recurrent venous ulcers previously followed at the wound clinic who was brought into the ED as a trauma alert. Found to be hypoxic by EMS and was placed on O2 that had to be titrated up to hi gh flow before patient was ultimately placed on BiPAP. Was diagnosed with COVID on 06/09 (symptoms since 06/06) and prescribed Paxlovid as outpatient. Unclear how long patient was on the floor but she thinks that she may have fallen trying to get out of bed last night. CT chest noted moderate right and small left pleural effusion. B/L lower lobe opacities vs atelectasis Procal today is 0.36 Pulm recs noted Continue zosyn Will put back on BIPAP per pulm Will eventually need diuretics. Nephro on board to assist with that. Currently on D5W started this AM to slow down rapid correction of hyponatremia (4) Rhabdomyolysis: Plan: Unclear how long patient was down at home CK in the ED elevated at 2446. Creatinine normal Received ~800 ml of fluid in the ED CK trending down 1138 today (5) Hyponatremia: Plan: Na was 121 on admission yesterday, dropped to 118 and up to 125 this AM Serum osm 253 on admission. Uosm 618. Jayde 10 Discussed with Career Law Clerk Recommends doing IV D5W 100cc/h to slow down rapid correction BMP at 12.30 - 119. IV D5W stopped Nephro recommends IV lasix 20mg x1 at 3pm and continue to monitor Na q4h Will follow up Na and Nephrology recommendations (6) Raynauds phenomenon: Plan: Chronic, stable Continue nifedipine (7) Venous insufficiency (chronic) (peripheral): Plan: Chronic, stable Plan P Code status: full code DVT prophylaxis: Marita Winter spent a total of 55 minutes coordinating, documenting and providing care for this patient excluding time spent in performance of separately billed services Admission and Anticipated Discharge Date Admission Date: June 13, 2024 Subjective Patient seen and examined On Oxymask Reports cough, SOB, sorethroat, chest congestion Reported some nausea prior to presentation but none today Denied abd pain, diarrhea, dysuria, freq, urgency Physical Exam Constitutional: + ill appearing; no acute distress Eyes: PERRL, conjunctivae normal, anicteric sclerae ENMT: external ear and nose normal, oropharynx normal Respiratory: Not in respiratory distress. Diminished breath sounds +crackles Cardiovascular: Rate/Rhythm: regular rate and regular rhythm Gastrointestinal (Abdomen): normal bowel sounds, soft, nontender, no hepatosplenomegaly Neurologic: PERRL, EOMI, accommodation nl, no face palsy, no dysarthria Psychiatric: A+Ox3, euthymic affect Genitourinary: Vigil in situ Results & Data Results & Data Vital Signs (Past 12 Hours) Vital Signs Temp Pulse Pulse Resp BP Pulse Ox O2 Del Method 06/14/24 10:52 38.0 C H 86 14 101/58 L 90 Oxymask 06/14/24 07:52 36.8 C 87 18 111/68 91 Oxymask 06/14/24 07:05 83 06/14/24 06:00 96 Oxymask 06/14/24 03:40 36.5 C 85 20 114/63 99 BiPAP 06/14/24 00:18 84 24 100 06/13/24 23:59 36.5 C 82 24 115/65 96 BiPAP O2 Flow Rate FiO2 06/14/24 10:52 4 06/14/24 07:52 4 06/14/24 07:05 06/14/24 06:00 4 06/14/24 03:40 06/14/24 00:18 70 06/13/24 23:59 Laboratory Results Abnormal lab results 06/13/24 06/13/24 06/14/24 Range/Units 10:57 19:03 00:32 WBC (4.8-10.8) K/ul Hct (37.0-47.0) % Neut # (Auto) (1.40-6.50) K/uL Lymph # (Auto) (1.20-3.40) K/uL Sodium 118 L* 120 L (136-145) mmol/L Chloride 84 L 85 L (98-107) mmol/L Carbon Dioxide 20 L 20 L (21-32) mmol/L Anion Gap 14 H 15 H (3-11) BUN (6-23) mg/dl BUN/Creatinine Ratio 31.9 H 28.0 H (10-20) Glucose 106 H 112 H (70-99(Fasting)) mg/dl POC Glucose (70-99) mg/dl Osmolality 253 L (280-300) mOsm/kg Calcium (8.6-10.3) mg/dl Total Bilirubin (0.2-1.0) mg/dl Direct Bilirubin 0.3 H (0-0.2) mg/dl AST 143 H (13-39) U/L ALT 83 H (7-52) U/L Total Creatine Kinase (26-192) U/L Total Protein 5.3 L (6.0-8.3) gm/dl Albumin 3.1 L (3.4-5.0) gm/dl 06/14/24 06/14/24 06/14/24 Range/Units 04:26 05:44 06:16 WBC 12.12 H (4.8-10.8) K/ul Hct 35.3 L (37.0-47.0) % Neut # (Auto) 11.08 H (1.40-6.50) K/uL Lymph # (Auto) 0.40 L (1.20-3.40) K/uL Sodium 121 L (136-145) mmol/L Chloride 87 L (98-107) mmol/L Carbon Dioxide 17 L (21-32) mmol/L Anion Gap 17 H (3-11) BUN 24 H (6-23) mg/dl BUN/Creatinine Ratio 27.6 H (10-20) Glucose 164 H (70-99(Fasting)) mg/dl POC Glucose 111 H (70-99) mg/dl Osmolality (280-300) mOsm/kg Calcium 8.3 L (8.6-10.3) mg/dl Total Bilirubin 1.1 H (0.2-1.0) mg/dl Direct Bilirubin (0-0.2) mg/dl AST (13-39) U/L ALT 100 H (7-52) U/L Total Creatine Kinase 1138 H (26-192) U/L Total Protein (6.0-8.3) gm/dl Albumin (3.4-5.0) gm/dl 06/14/24 06/14/24 Range/Units 07:30 08:33 WBC (4.8-10.8) K/ul Hct (37.0-47.0) % Neut # (Auto) (1.40-6.50) K/uL Lymph # (Auto) (1.20-3.40) K/uL Sodium 125 L (136-145) mmol/L Chloride 89 L (98-107) mmol/L Carbon Dioxide (21-32) mmol/L Anion Gap 15 H (3-11) BUN 26 H (6-23) mg/dl BUN/Creatinine Ratio 28.9 H (10-20) Glucose 119 H (70-99(Fasting)) mg/dl POC Glucose (70-99) mg/dl Osmolality (280-300) mOsm/kg Calcium (8.6-10.3) mg/dl Total Bilirubin (0.2-1.0) mg/dl Direct Bilirubin (0-0.2) mg/dl AST 134 H (13-39) U/L ALT (7-52) U/L Total Creatine Kinase (26-192) U/L Total Protein (6.0-8.3) gm/dl Albumin (3.4-5.0) gm/dl (4) Rhabdomyolysis Rhabdomyolysis type: non-traumatic Qualified Code(s): M62.82 - Rhabdomyolysis (6) Raynauds phenomenon Raynaud?s-associated gangrene presence: without gangrene Qualified Code(s): I73.00 - Raynaud's syndrome without gangrene
[2024-06-14] MEDS: DEXTROSE 5% 1,000 ML IV SCH (11:11)
[2024-06-14 13:07] LABS: BUN Creatinine Ratio 30.3 (10-20); Creatinine Clr Calc Pharmacy 50.6 ml/min; Potassium 3.8 mmol/L (3.5-5.1)
--- NOTE | 2024-06-14 14:37 | Nephrology Consultation ---
Date of Consultation June 14, 2024 Assessment & Plan (1) Hyponatremia: Na was 121 on admission yesterday, dropped to 118 and up to 125 this AM Serum osm 253 on admission. Uosm 618. Jayde 10, likely 2/ fluid overload on the background of SIADH She was started on IV D5W 100cc/h to slow down rapid correction BMP at 12.30 - 119. IV D5W stopped IV lasix 20mg x1 at 3pm and continue to monitor Na q4h,Target 124 until 7.00 pm today and 128 until 7.00 am tmrw and 132 until 7.00 pm tmrw. Q4 sodium (2) Acute hypoxic respiratory failure: CT chest noted moderate right and small left pleural effusion. B/L lower lobe opacities vs atelectasis Pulm on board Continue zosyn back on BIPAP per pulm. - will be put on regular diuretics on sodium is safre( >130) History of Present Illness Reason for Consultation: hyponatremia Attending Physician: Jen Day MD History of Present Illness 74 y/o female with who presented to ED as a trauma alert. Pt was found down at home this morning by police after her neighbors called for a wellness check.Unclear how long patient was on the floor but she thinks that she may have fallen trying to get out of bed last night. Initial sats for EMS were upper 70s to mid 80s so she was placed on O2 up to 15L via NRB. In the ED she was placed on BiPAP as was having trouble tolerating the high-flow oxygen. She has been maintaining sats on the BiPAP. Upon review of her [facility] chart, she was seen by PCP on 06/08 for two days of URI symptoms. COVID test came back positive so [facility] was called in on 06/09. Currently, pt is tolerating BiPAP without difficulty and maintaing her sats. She does not localize any specific pain but overall feels poorly CT chest noted moderate right and small left pleural effusion. B/L lower lobe opacities vs atelectasis. LaBs were significant for Sodium of 121 which dropped to 118 after 1 lit of normal saline.Nephrology was consulted overnight and she was give 20 mg IV lasix. Sodium improved to 121 in the morning labs , however there were concerns of rdpid correctionand she was started on D5W( na anupam to 125). Very frail and in mild respiratory distress on exam,needing fio2 of 70 % to maintain safe SPO2. No pedal edema. Allergies Allergy/AdvReac Type Severity Reaction Status Date / Time Estrogens Allergy Mild ` Verified 03/16/24 08:37 bacitracin Allergy Unknown POLYSPORIN Verified 03/16/24 08:37 polymyxin B Allergy Unknown POLYSPORIN Verified 03/16/24 08:37 Sulfa (Sulfonamide AdvReac Unknown ` Verified 03/16/24 08:37 Antibiotics) sulfamethoxazole AdvReac Unknown ` Verified 03/16/24 08:37 trimethoprim AdvReac Unknown ` Verified 03/16/24 08:37 Home Medications Medication Instructions Recorded Confirmed Type aspirin 81 mg tablet,delayed 81 mg PO UD 09/22/20 06/13/24 History release cholecalciferol (vitamin D3) 25 25 mcg PO DAILY 09/22/20 06/13/24 History mcg (1,000 unit) capsule nifedipine 90 mg tablet,extended 90 mg PO QAM 10/20/20 06/13/24 History release potassium chloride 10 mEq 10 meq PO QAM 10/20/20 06/13/24 History capsule,extended release valacyclovir 1 gram tablet 2,000 mg PO Q12H PRN Cold Sores 10/20/20 06/13/24 History meclizine 25 mg tablet 25 mg PO TID PRN dizziness #20 tabs 09/22/21 06/13/24 Rx ascorbic acid (vitamin C) 500 mg 500 mg PO DAILY 11/18/22 06/13/24 History tablet (Vitamin C) calcium carbonate 500 mg PO DAILY 11/18/22 06/13/24 History cetirizine 10 mg tablet (Zyrtec) 10 mg PO DAILY PRN Other 11/18/22 06/13/24 History lactase 9,000 unit chewable tablet 9,000 unit PO AC PRN .Intolerance 11/18/22 06/13/24 History (Lactaid Fast Act) sennosides 8.6 mg tablet (senna) 8.6 mg PO UD 11/18/22 06/13/24 History nirmatrelvir 300 mg (150 mg 1 ea PO DIRECTED 06/13/24 06/13/24 History x2)-ritonavir 100 mg tablet,dose pack (Paxlovid) Patient History Medical History Sensorineural hearing loss (SNHL) of both ears AD: mild HF SNHL, : mild to mod SNHL Chronic venous insufficiency of lower extremity History of 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 Dermatitis, eczematoid Dysplastic nevus Raynauds phenomenon Rosacea TMJ (temporomandibular joint syndrome) Vitamin D deficiency Fracture, sacrum/coccyx Surgical History History of breast lump/mass excision Status post endovenous radiofrequency ablation of saphenous vein H/O inguinal hernia repair Hx of tonsillectomy S/P endometrial ablation H/O tubal ligation Family History Father Stroke Other Diabetes Social History Smoking Status: Never smoker Tobacco Type: Cigarettes Do You Dip or Chew Tobacco: No; Hx Alcohol Use: No Hx Substance Use: No Preferred Language: Persian Communication Ability: Effective Visual Impairment: Limited Hearing Ability: Use of Hearing Aid Photographic Platemaker Required: No Beliefs That Will Affect Care: None marital status: Single Current Living Situation: Alone current occupational status: employed current occupation: [employer] How many Children do You have: 2 How many Children do You have Comment: one son lives locally that is able to assist as needed Feels Safe at Home: Yes Safety Concerns: Feels Safe At This Time during the past year weight has: remained stable Assistive Devices: Glasses Review of Systems 2 Review of Systems: In mild respiratory dsitress Very frail and ill appearing Physical Exam 2 Physical Exam: Constitutional: + ill appearin g; no acute distre ss Eyes: PERRL, conjunct ivae normal, anict teodora sclerae ENMT: external ear an d nose normal, dillon pharynx normal Respiratory: Not in respir atory distress. Di minished breath so unds +crackles Cardiovascular: Rate/Rhythm: re gular rate and reg ular rhythm Gastrointestinal (Abdomen): normal bowel so unds, soft, nonten idalia, no hepatosple nomegaly Results & Data Vital Signs (Past 12 Hours) Vital Signs Temp Pulse Pulse Resp BP Pulse Ox O2 Del Method 06/14/24 13:51 86 06/14/24 11:23 99 BiPAP 06/14/24 10:52 38.0 C H 86 14 101/58 L 90 Oxymask 06/14/24 07:52 36.8 C 87 18 111/68 91 Oxymask 06/14/24 07:05 83 06/14/24 06:00 96 Oxymask 06/14/24 03:40 36.5 C 85 20 114/63 99 BiPAP O2 Flow Rate 06/14/24 13:51 06/14/24 11:23 06/14/24 10:52 4 06/14/24 07:52 4 06/14/24 07:05 06/14/24 06:00 4 06/14/24 03:40 Laboratory Results 06/14/24 04:26 06/14/24 12:29
[2024-06-14] MEDS: FUROSEMIDE INJ 20 MG/2 ML VIAL IV ONE ×2 (15:10→23:10)
[2024-06-14 16:09] LABS: Thyroid Stimulating Hormone 1.909 uIu/ml (0.300-4.500)
[2024-06-14 17:10] LABS: BUN Creatinine Ratio 31.5 (10-20); Calcium 8.4 mg/dl (8.6-10.3); Creatinine Clr Calc Pharmacy 50.6 ml/min
[2024-06-14 21:28] LABS: BUN Creatinine Ratio 30.9 (10-20); Calcium 8.7 mg/dl (8.6-10.3); Creatinine Clr Calc Pharmacy 46.4 ml/min; Potassium 3.8 mmol/L (3.5-5.1)
[2024-06-14] MEDS: MoRPHine SULFATE 2 MG/ML CARP IV STA (23:28)
[2024-06-15] MEDS: OPTIRAY 320 125ml IV ONE (00:35)
--- NOTE | 2024-06-15 01:12 | CT Scan Report ---
EXAM: CT head/brain wo con CLINICAL HISTORY: cva TECHNIQUE: Axial non-contrast CT scan of the brain was performed from the skull base to the high parietal region with coronal and sagittal reformats. One of the following dose reduction techniques were utilized for this exam: Automated exposure control, adjustment of the mA and/or kV according to patient size, use of iterative reconstruction. COMPARISON: 06/13/2024 FINDINGS: Brain Parenchyma: Normal attenuation of the cerebral hemispheres, cerebellum, and brainstem. No evidence of acute infarct, hemorrhage, or mass effect. There are mildly accentuated white matter hypodensities in both the cerebral hemispheres suggestive of mild microvascular ischemic changes. Mild age-appropriate involutional changes are seen in the brain evident by widened extra-axial CSF spaces, and slightly deepened cortical sulci. Ventricular System: Ventricles are normal in size and configuration. No evidence of hydrocephalus or ventricular enlargement. Subarachnoid Spaces: No evidence of subarachnoid hemorrhage or extra-axial fluid collections. Cerebellum and Brainstem: Normal size and signal. No masses, lesions, or areas of abnormal signal. Orbits: Normal appearance of the globes, optic nerves, and extraocular muscles. No evidence of orbital masses or abnormal signal. Sinuses: Clear paranasal sinuses. No evidence of sinusitis or mucosal thickening. Mastoid Air Cells: Clear mastoid air cells. No evidence of mastoiditis. Skull and Meninges: Normal skull morphology. IMPRESSION: 1. No acute intracranial abnormality. 2. Mild microvascular ischemic changes and mild age-appropriate involutional changes are seen in the brain. Electronically signed by Jeremías Coelho 06-15-2024 01:12 AM
--- NOTE | 2024-06-15 01:21 | CT Scan Report ---
EXAM: CT angio head w con CLINICAL HISTORY: cva 118 cc opti 320 TECHNIQUE: Axial CT angiography of the head was done with 118cc of opitray-320mg/ml contrast and sagittal and coronal reformats with MIP reconstructions. One of these 3D techniques was utilized: Maximum Intensity Pixel (MIP), 3D Reconstructed Images, Volume Rendered Images, Surface Shaded Rendering. One of the following dose reduction techniques were utilized for this exam: Automated exposure control, adjustment of the mA and/or kV according to patient size, and use of iterative reconstruction. COMPARISON: None. FINDINGS: Intracranial Arteries: The intracranial portions of the internal carotid arteries show crescentic calcified plaques causing mild stenosis (20-25%). The anterior cerebral arteries, middle cerebral arteries, posterior cerebral arteries, basilar artery, and vertebral arteries are well-opacified. 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 Focal speck of calcification is seen in the M1 segment of the left middle cerebral artery, not causing any luminal stenosis. No evidence of aneurysm, stenosis, or occlusion. No significant atherosclerotic changes. [place] of [place]: The [place] is complete. Normal caliber of the communicating arteries. No vascular malformations or aneurysms. Venous Structures: Normal opacification of the major dural venous sinuses. No evidence of venous sinus thrombosis. Brain Parenchyma: Normal attenuation of the cerebral hemispheres, cerebellum, and brainstem. No evidence of acute infarct, hemorrhage, or mass effect. Ventricular System: Ventricles are normal in size and configuration. No evidence of hydrocephalus or ventricular enlargement. Skull and Meninges: Normal appearance of the skull. No evidence of meningeal enhancement or thickening. Orbits: Normal appearance of the globes, optic nerves, and extraocular muscles. No evidence of orbital masses or abnormal signals. IMPRESSION: 1. Normal CT angiography of the head. 2. No evidence of significant vascular abnormalities. 3. 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 4. Focal speck of calcification is seen in the M1 segment of the left middle cerebral artery, not causing any luminal stenosis. 5. Mild stenosis of both ICA segments due to calcified plaques. Electronically signed by Jeremías Coelho 06-15-2024 01:20 AM
--- NOTE | 2024-06-15 01:29 | CT Scan Report ---
EXAM: CT angio neck with con CLINICAL HISTORY: cva 118 cc opti 320 TECHNIQUE: CT angiography study of the neck vessels with 118cc Opitray-320mg/ml IV contrast was performed and multiple axial sections were obtained with coronal and sagittal reconstructions. xOne of the following dose reduction techniques were utilized for this exam: Automated exposure control, adjustment of the mA and/or kV according to patient size, and use of iterative reconstruction. One of these 3D techniques was utilized: Maximum Intensity Pixel (MIP), 3D Reconstructed Images, Volume Rendered Images, Surface Shaded Rendering COMPARISON: 05/09/2022. FINDINGS: Carotid Arteries: Common carotid arteries, internal carotid arteries, and external carotid arteries bilaterally are well-opacified. No evidence of significant stenosis, occlusion, or aneurysm. No significant atherosclerotic changes. Vertebral Arteries: Vertebral arteries bilaterally are well-opacified. No evidence of significant stenosis, occlusion, or aneurysm. No significant atherosclerotic changes. Jugular Veins: Normal opacification of the internal and external jugular veins bilaterally. No evidence of thrombosis or compression. Subclavian Arteries: Subclavian arteries bilaterally are well-opacified. No evidence of significant stenosis, occlusion, or aneurysm. Thyroid Gland: Normal size and morphology of the thyroid gland. No masses or nodules. Soft Tissues: Normal appearance of the surrounding soft tissues of the neck. No abnormal masses or lymphadenopathy. Cervical Spine: Normal alignment and signal intensity of the cervical vertebrae. No fractures, lytic or sclerotic lesions. Incidental note is made of moderate-volume bilateral pleural effusions with passive atelectasis. IMPRESSION: 1. Normal CT angiography of the neck. 2. No evidence of significant vascular abnormalities. Electronically signed by Jeremías Coelho 06-15-2024 01:29 AM
[2024-06-15] MEDS ORDERED: PHARMACIST DISCHARGE MED REC CONSULT PRN (02:07)
[2024-06-15 02:36] LABS: Hematocrit (blood only) 37.2 % (37.0-47.0); Hemoglobin 13.7 g/dl (12.0-16.0); Mean Corpuscular Hemoglobin 29.5 pg (25.0-34.0); Mean Corpuscular Hgb Conc 36.8 g/dL (32.0-36.0); Mean Platelet Volume 11.7 fL (9.4-12.4); Platelet Count 196 K/uL (130-400); RDW Coefficient of Variation 13.3 % (11.5-14.5); RDW Standard Deviation 38.3 fL (36.4-46.3); Red Blood Count 4.65 M/uL (4.20-5.40); White Blood Count 14.73 K/ul (4.8-10.8)
[2024-06-15 02:49] LABS: Albumin Globulin Ratio 1.2 (0.9-2); Albumin Level 3.7 gm/dl (3.4-5.0); Bilirubin,Total 1.2 mg/dl (0.2-1.0); Calcium 8.8 mg/dl (8.6-10.3); Chol HDL Ratio 2.1 (0-5); Creatinine Clr Calc Pharmacy 46.4 ml/min; Magnesium 2.1 mg/dl (1.7-2.4); Phosphorus 3.4 mg/dl (2.5-4.9); Potassium 3.5 mmol/L (3.5-5.1); Total Protein 6.7 gm/dl (6.0-8.3)
[2024-06-15 03:00] LABS: Troponin I High Sensitivity 17.9 pg/ml (0-14)
[2024-06-15 03:04] LABS: Basophils # (auto) 0.02 K/uL (0.00-0.20); Basophils % (auto) 0.1 %; Echinocytes 1+; Eosinophils # (auto) 0.03 K/uL (0.00-0.50); Eosinophils % (auto) 0.2 %; Immature Granulocytes # (auto) 0.08 K/uL (0.01-0.20); Immature Granulocytes % (auto) 0.5 %; Lymphocytes # (auto) 0.44 K/uL (1.20-3.40); Monocytes # (auto) 0.78 K/uL (0.11-0.59); Monocytes % (auto) 5.3 %; Neutrophils # (auto) 13.38 K/uL (1.40-6.50); Neutrophils % (auto) 90.9 %; Polychromasia 1+; Toxic Vacuolation 1+
[2024-06-15] MEDS: UREA (UREA-NA) 15 GM PACK PO STA (03:52)
[2024-06-15] MEDS ORDERED: STAT IV/IM STA (04:36)
[2024-06-15] MEDS: SODIUM CHLORIDE 3 % 50 ML IV ONE (05:16)
[2024-06-15] MEDS ORDERED: UREA (UREA-NA) 15 GM PACK PO SCH (06:00)
[2024-06-15 06:52] LABS: BUN Creatinine Ratio 77.5 (10-20); Calcium 8.2 mg/dl (8.6-10.3); Creatinine Clr Calc Pharmacy 45.2 ml/min; Potassium 3.4 mmol/L (3.5-5.1)
--- NOTE | 2024-06-15 07:33 | Communication Note ---
Date of Service: June 15, 2024 Yesterday evening 06/14/24 at 2057 labs showed sodium 121 called nephrology and was recommended a dose of iv lasix 20mg. Patient complained chest pain. ekg no acute findings. received 1mg iv morphine. Around 1145pm was called to evaluate the patient. Apparently when Nursing staff removed her bipap it was noticed that her right face drooped.We don't know when she developed facial droop as patient was on bipap for long and was lethargic. Patient was alert and oriented x3 at this time . Speech sometimes slurred (possibly dry mouth), . Patient says she had facial paralysis in the past but on left side. CAlled and verified with son and he don't remember patient having paralysis. Called stroke alert. CT head, cta head and neck were ok. [facility] evaluated the patient and thought probably patient might have had small sub cortical stroke. Recommended to check antiphospholipid antibodies. Advised to keep MAP>80.And recommended fluid bolus if needed. BP upto 160/90(because of aortic aneurysm)MRI when patient more stable. To check lipid profile in am and start on statin based on lipid levels. Patient already on aspirin.Repeat sodium levels at 2am today 06/15/24 came a 121 again. Notified nephrology about no improvement in sodium levels and the above events and neurology recommendations. Initially Nephro asked to give 30gm urea stat which was given and 15gm bid to start from 6am. But later Nephro recommended to stop urea 15gm bid and give 3%hypertonic saline 50ml and check bmp q1hrs and if sodium levels increasing more than 1mmol/L every 2hrs to start on d5w@75ml/hr. Hypertonic saline was given around 530am. Repeat labs at 611am showed sodium of 126. Started on d5w@75ml/hr. Notified am providers about night events and to follow on sodium levels. MRI Ordered. Son updated in the morning.Also initial troponin came at 30 but repeat came17. Had echo on 06/14/24 which was unremarkable.To follow serial ce and monitor.
[2024-06-15] MEDS: DEXTROSE 5% 1,000 ML IV SCH (07:36)
[2024-06-15 08:01] LABS: Creatinine Urine Random 42.7 mg/dl; Urine Chloride < 15 mmol/L; Urine Potassium 16.6 mmol/L; Urine Sodium < 10 mmol/L
[2024-06-15 08:09] LABS: Estimated Average Glucose 137 mg/dl; Hemoglobin A1C 6.4 % (4.5-5.6)
[2024-06-15 09:12] LABS: BUN Creatinine Ratio 74.2 (10-20); Calcium 8.4 mg/dl (8.6-10.3); Creatinine Clr Calc Pharmacy 43.2 ml/min; Potassium 3.4 mmol/L (3.5-5.1)
--- NOTE | 2024-06-15 10:42 | Nephrology Progress Note ---
Date of Service June 15, 2024 Assessment & Plan Admission and Anticipated Discharge Date Admission Date: June 13, 2024 Subjective Assessment & Plan (1) Hyponatremia: Na was 121 on admission yesterday, dropped to 118 and up to 126 this AM Serum osm 253 on admission. Uosm 618. Jayde 10, likely sec to fluid overload on background of SIADH various combination of NS, lasix and Hypertonic saline and also d5w given over the last 12 hrs mainly because of Stroke like symptoms. at 118---126 range of Na+ Stroke like symptoms does not happen and these symptoms have nothing to do with Low Na+. True and true but unrelated. rate of correction was never really that fast to be concerned. Please manage Stroke Like Symptoms like you would normally do. Stop d5w. FFR 1200 ml when PO allowed.. lasix 20 iv q12. Labs [id number] panel. K is low --so give kcl 20 meq po bid. BUN is very high from Urea but not on now. BP is borderline low and we are giving lasix so D/c Nifedipine for now. Acceptable to have SBP upto 150 (2) Acute hypoxic respiratory failure: CT chest noted moderate right and small left pleural effusion. B/L lower lobe opacities vs atelectasis S--had Some " stroke like symptoms". Making urine. Labs not a whole lot different. Physical Exam Physical Exam: Constitutional: No acute distress. on o2 -6 liter HEENT: MM moist. neck Supple. Respiratory system: Decreased air entry bilaterally, no wheeze, no rhonchi, positive crackles bilateral lower lobes CVS: S1-S2 positive Abdomen: Soft, nontender, nondistended, Extremities: minimal pitting edema bilateral lower extremity Neuro: Awake alert oriented x3 Psych: Normal mood and affect G/U: Positive Vigil Results & Data Vital Signs (Past 12 Hours) Vital Signs Temp Pulse Resp BP BP Pulse Ox O2 Del Method 06/15/24 08:54 17 109/55 L 93 Oxymask 06/15/24 07:46 36.6 C 82 18 104/69 93 Oxymask 06/15/24 03:06 36.7 C 85 20 107/62 93 Oxymask 06/15/24 01:01 88 22 121/67 99 Oxymask 06/15/24 00:18 36.6 C 92 H 23 117/65 117/65 98 Oxymask 06/14/24 22:55 36.5 C 90 22 123/69 100 BiPAP O2 Flow Rate 06/15/24 08:54 6 06/15/24 07:46 6 06/15/24 03:06 5 06/15/24 01:01 6 06/15/24 00:18 4 06/14/24 22:55
--- NOTE | 2024-06-15 11:03 | Hospitalist Progress Note ---
Date of Service June 15, 2024 Assessment & Plan (1) Acute hypoxic respiratory failure: (2) Bilateral pleural effusion: (3) COVID-19: Plan: 74 year old woman with Raynaud's, chronic vertigo, thoracic ascending aneurysm, chronic venous insufficiency with history of recurrent venous ulcers previously followed at the wound clinic who was brought into the ED as a trauma alert. Found to be hypoxic by EMS and was placed on O2 that had to be titrated up to hi gh flow before patient was ultimately placed on BiPAP. Was diagnosed with COVID on 06/09 (symptoms since 06/06) and prescribed Paxlovid as outpatient. Unclear how long patient was on the floor but she thinks that she may have fallen trying to get out of bed last night. CT chest noted moderate right and small left pleural effusion. B/L lower lobe opacities vs atelectasis Procal today is 0.36 Pulm recs noted Continue zosyn Continue dexamethasone (4) Stroke-like symptoms: Plan: Had stroke like symptoms overnight of 06/14/24 CT head did not show any acute abnormalities CTA Head/Neck did not show significant vascular abnormalities. 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 Mild stenosis of both ICA segments due to calcified plaques Awaiting MRI brain and Neurology eval (5) Rhabdomyolysis: Plan: Unclear how long patient was down at home CK in the ED elevated at 2446. Creatinine normal Received ~800 ml of fluid in the ED CK trended down (6) Hyponatremia: Plan: Na was 121 on admission yesterday, dropped to 118 and up to 125 this AM Serum osm 253 on admission. Uosm 618. Jayde 10 Had stroke like symptoms overnight and there was some concerns that hyponatremia may be contributing. Hence she got hypertonic saline overnight Na is 126 this AM Discussed with Classified Advertising Manager Dr Marroquin. Recommends stopping IVF and monitor BMP q8h (7) Raynauds phenomenon: Plan: Chronic, stable Continue nifedipine (8) Venous insufficiency (chronic) (peripheral): Plan: Chronic, stable Plan Code status: full code DVT prophylaxis: Lovenox Call to son this AM to update him was unanswered. Will try again later I spent a total of 55 minutes coordinating, documenting and providing care for this patient excluding time spent in performance of separately billed services Admission and Anticipated Discharge Date Admission Date: June 13, 2024 Subjective Overnight, there was report of right facial droop and stroke alert was called CT head and CTA Head/Neck did not show acute CVA Patient seen and examined She is alert and oriented to person/place/time Reports generalized weakness, cough, some shortness of breath Denied difficulty swallowing but reported sorethroat Denied any sensory deficits. Physical Exam Constitutional: + ill appearing; no acute distress Eyes: PERRL, conjunctivae normal, anicteric sclerae ENMT: external ear and nose normal, oropharynx normal Cardiovascular: Rate/Rhythm: regular rate and regular rhythm Gastrointestinal (Abdomen): normal bowel sounds, soft, nontender, no hepatosplenomegaly Musculoskeletal: No pedal edema Neurologic: PERRL, EOMI, accommodation nl, no face palsy, no dysarthria Psychiatric: Alert and oriented to person/place/time Generalized weakness. Power is reduced in LE equally Genitourinary: Vigil in situ Results & Data Results & Data Vital Signs (Past 12 Hours) Vital Signs Temp Pulse Pulse Resp BP BP Pulse Ox 06/15/24 08:54 17 109/55 L 93 06/15/24 07:46 36.6 C 82 18 104/69 93 06/15/24 07:36 84 06/15/24 07:36 06/15/24 03:06 36.7 C 85 20 107/62 93 06/15/24 01:01 88 22 121/67 99 06/15/24 00:18 36.6 C 92 H 23 117/65 117/65 98 O2 Del Method O2 Flow Rate 06/15/24 08:54 Oxymask 6 06/15/24 07:46 Oxymask 6 06/15/24 07:36 06/15/24 07:36 Oxymask 6 06/15/24 03:06 Oxymask 5 06/15/24 01:01 Oxymask 6 06/15/24 00:18 Oxymask 4 Laboratory Results Abnormal lab results 06/14/24 06/14/24 06/14/24 Range/Units 12:29 16:27 20:57 WBC (4.8-10.8) K/ul MCHC (32.0-36.0) g/dL Neut # (Auto) (1.40-6.50) K/uL Lymph # (Auto) (1.20-3.40) K/uL [place] # (Auto) (0.11-0.59) K/uL Sodium 119 L* 124 L 121 L (136-145) mmol/L Potassium (3.5-5.1) mmol/L Chloride 84 L 89 L 86 L (98-107) mmol/L Anion Gap 13 H 14 H 12 H (3-11) BUN 27 H 28 H 30 H (6-23) mg/dl BUN/Creatinine Ratio 30.3 H 31.5 H 30.9 H (10-20) Glucose 139 H 145 H 132 H (70-99(Fasting)) mg/dl POC Glucose (70-99) mg/dl Hemoglobin A1c (4.5-5.6) % Osmolality (280-300) mOsm/kg Calcium 8.4 L (8.6-10.3) mg/dl Total Bilirubin (0.2-1.0) mg/dl AST (13-39) U/L ALT (7-52) U/L Troponin I High Sens (0-14) pg/ml Urine Osmolality (500-800) mOsm/kg 06/14/24 06/14/24 06/15/24 Range/Units 23:28 23:51 02:04 WBC 14.73 H (4.8-10.8) K/ul MCHC 36.8 H (32.0-36.0) g/dL Neut # (Auto) 13.38 H (1.40-6.50) K/uL Lymph # (Auto) 0.44 L (1.20-3.40) K/uL [place] # (Auto) 0.78 H (0.11-0.59) K/uL Sodium 121 L (136-145) mmol/L Potassium (3.5-5.1) mmol/L Chloride 85 L (98-107) mmol/L Anion Gap 13 H (3-11) BUN 31 H (6-23) mg/dl BUN/Creatinine Ratio 32.0 H (10-20) Glucose 141 H (70-99(Fasting)) mg/dl POC Glucose 149 H (70-99) mg/dl Hemoglobin A1c (4.5-5.6) % Osmolality 269 L (280-300) mOsm/kg Calcium (8.6-10.3) mg/dl Total Bilirubin 1.2 H (0.2-1.0) mg/dl AST 103 H (13-39) U/L ALT 99 H (7-52) U/L Troponin I High Sens 30.0 H D 17.9 H D (0-14) pg/ml Urine Osmolality (500-800) mOsm/kg 06/15/24 06/15/24 06/15/24 Range/Units 06:10 06:11 08:28 WBC (4.8-10.8) K/ul MCHC (32.0-36.0) g/dL Neut # (Auto) (1.40-6.50) K/uL Lymph # (Auto) (1.20-3.40) K/uL [place] # (Auto) (0.11-0.59) K/uL Sodium 126 L 126 L (136-145) mmol/L Potassium 3.4 L 3.4 L (3.5-5.1) mmol/L Chloride 91 L 90 L (98-107) mmol/L Anion Gap (3-11) BUN 69 H D 69 H (6-23) mg/dl BUN/Creatinine Ratio 77.5 H 74.2 H (10-20) Glucose 164 H 164 H (70-99(Fasting)) mg/dl POC Glucose (70-99) mg/dl Hemoglobin A1c 6.4 H (4.5-5.6) % Osmolality (280-300) mOsm/kg Calcium 8.2 L 8.4 L (8.6-10.3) mg/dl Total Bilirubin (0.2-1.0) mg/dl AST (13-39) U/L ALT (7-52) U/L Troponin I High Sens 21.0 H (0-14) pg/ml Urine Osmolality 494 L (500-800) mOsm/kg (5) Rhabdomyolysis Rhabdomyolysis type: non-traumatic Qualified Code(s): M62.82 - Rhabdomyolysis (7) Raynauds phenomenon Raynaud?s-associated gangrene presence: without gangrene Qualified Code(s): I73.00 - Raynaud's syndrome without gangrene
[2024-06-15] MEDS: FUROSEMIDE INJ 20 MG/2 ML VIAL IV SCH (11:10)
[2024-06-15] MEDS: POTASSIUM CHLORIDE 20 MEQ/15 ML UDC PO SCH (11:10)
[2024-06-15 15:37] LABS: BUN Creatinine Ratio 58.1 (10-20); Creatinine Clr Calc Pharmacy 38.3 ml/min; Potassium 3.6 mmol/L (3.5-5.1)
--- NOTE | 2024-06-15 15:49 | Electrocardiogram Report ---
Test Reason : Blood Pressure : */* mmHG Vent. Rate : 87 BPM Atrial Rate : 87 BPM P-R Int : 140 ms QRS Dur : 92 ms QT Int : 354 ms P-R-T Axes : 71 56 8 degrees QTcB Int : 425 ms Normal sinus rhythm Possible Left atrial enlargement Nonspecific T wave abnormality Abnormal ECG When compared with ECG of 13-Jun-2024 10:37, Nonspecific T wave abnormality now evident in Inferior leads Nonspecific T wave abnormality now evident in Anterior leads Confirmed by Marcelo Up ([id number]) on 06/15/2024 3:48:55 PM Referred By: REFERRED SELF Confirmed By: Marcelo Up
--- NOTE | 2024-06-15 17:00 | Pulmonology Progress Note ---
Date of Service June 15, 2024 Assessment & Plan (1) Bilateral pleural effusion: (2) Raynauds phenomenon: Raynaud?s-associated gangrene presence: without gangrene Qualified Code(s): I73.00 - Raynaud's syndrome without gangrene (3) Acute hypoxic respiratory failure: (4) COVID-19: (5) Abnormal chest CT: Plan Impression: 74-year-old female present to the hospital post fall. Was found to be COVID-positive and having bilateral pleural effusion. Pulmonary consulted for hypoxia and pleural effusion Recommendations: 1. Bilateral pleural effusions: Minimally symptomatic currently. Continue with diuresis. No indication for sampling currently. BNP elevated on presentation and procalcitonin normal. 2. Hypoxemia: Significantly improved. No respiratory distress currently. Wean oxygen as tolerated to keep saturations at or above 88%. 3. Electrolytes and kidney function per nephrology. 4. COVID: Pleural effusions unlikely to be related to COVID. Echocardiogram showed preserved EF (60 to 65%) with normal wall motion. No evidence of significant valvular disease. 5. Out of bed to chair and ambulate in the room is much as possible. 6. Suspect that the dependent areas of consolidation or compressive atelectasis. With a normal procalcitonin in the absence of fevers in the setting of COVID, I do not see a strong indication to continue with broad- spectrum antibiotics. These will be discontinued. Can likely discontinue steroids once the patient is off oxygen. Will continue to follow with you. Feel free to contact us with questions or concerns Admission and Anticipated Discharge Date Admission Date: June 13, 2024 Subjective Patient seen and examined. EMR reviewed. Discussed with off going vehicle safety inspector as well as with nephrology at bedside. Patient is stable. She continues to have decreasing her oxygen requirement. E vents of last night noted. Patient presented with some strokelike symptoms and had telestroke evaluation conducted. Imaging unrevealing. Respiratory status stable. Review of Systems Review of Systems: All systems reviewed & are unremarkable except as noted in Subjective Physical Exam Constitutional: WD/WN, vitals as above Neck: trachea midline, no thyromegaly Respiratory: no respiratory distress, no labored breathing, no cough and not tachypneic Auscultation: no diminished lung sounds Diminished breath sounds bilateral lung bases. Cardiovascular: RRR, no murmur, no edema Gastrointestinal (Abdomen): normal bowel sounds, soft, nontender, no hepatosplenomegaly Musculoskeletal: Extremities: extremities normal to inspection Skin: no rashes, warm and dry Neurologic: Nonfocal exam Lymphatic: no cervical lymphadenopathy Results & Data Results & Data Vital Signs (Past 12 Hours) Vital Signs Temp Pulse Pulse Resp BP Pulse Ox O2 Del Method 06/15/24 14:37 85 06/15/24 14:26 36.9 C 85 18 119/66 95 Nasal Cannula 06/15/24 13:48 98 Nasal Cannula 06/15/24 13:40 36.4 C 06/15/24 12:45 98 Nasal Cannula 06/15/24 12:07 35.0 C L 87 18 119/69 96 Nasal Cannula 06/15/24 11:44 36.7 C 90 21 111/64 95 Oxymask 06/15/24 08:54 17 109/55 L 93 Oxymask 06/15/24 07:46 36.6 C 82 18 104/69 93 Oxymask 06/15/24 07:36 84 06/15/24 07:36 Oxymask O2 Flow Rate 06/15/24 14:37 06/15/24 14:26 1 06/15/24 13:48 4 06/15/24 13:40 06/15/24 12:45 6 06/15/24 12:07 6 06/15/24 11:44 6.0 06/15/24 08:54 6 06/15/24 07:46 6 06/15/24 07:36 06/15/24 07:36 6 Critical Care Results & Data Vital Signs (Past 12 Hours) Vital Signs Temp Pulse Pulse Resp BP Pulse Ox O2 Del Method 06/15/24 14:37 85 06/15/24 14:26 36.9 C 85 18 119/66 95 Nasal Cannula 06/15/24 13:48 98 Nasal Cannula 06/15/24 13:40 36.4 C 06/15/24 12:45 98 Nasal Cannula 06/15/24 12:07 35.0 C L 87 18 119/69 96 Nasal Cannula 06/15/24 11:44 36.7 C 90 21 111/64 95 Oxymask 06/15/24 08:54 17 109/55 L 93 Oxymask 06/15/24 07:46 36.6 C 82 18 104/69 93 Oxymask 06/15/24 07:36 84 06/15/24 07:36 Oxymask O2 Flow Rate 06/15/24 14:37 06/15/24 14:26 1 06/15/24 13:48 4 06/15/24 13:40 06/15/24 12:45 6 06/15/24 12:07 6 06/15/24 11:44 6.0 06/15/24 08:54 6 06/15/24 07:46 6 06/15/24 07:36 06/15/24 07:36 6 Lab & Micro Results (Past 24 Hours) RBC 4.65 M/uL (4.20-5.40) 06/15/24 WBC 14.73 K/ul (4.8-10.8) H 06/15/24 Hgb 13.7 g/dl (12.0-16.0) 06/15/24 Hct 37.2 % (37.0-47.0) 06/15/24 MCV 80.0 fL (80.0-100.0) 06/15/24 MCH 29.5 pg (25.0-34.0) 06/15/24 MCHC 36.8 g/dL (32.0-36.0) H 06/15/24 RDW Standard Deviation 38.3 fL (36.4-46.3) 06/15/24 RDW Coefficient of Variation 13.3 % (11.5-14.5) 06/15/24 Plt Count 196 K/uL (130-400) 06/15/24 MPV 11.7 fL (9.4-12.4) 06/15/24 Neutrophils (%) (Auto) 90.9 % 06/15/24 Lymphocytes (%) (Auto) 3.0 % 06/15/24 Monocytes # (Auto) 0.78 K/uL (0.11-0.59) H 06/15/24 Eosinophils # (Auto) 0.03 K/uL (0.00-0.50) 06/15/24 Immature Granulocyte % (Auto) 0.5 % 06/15/24 Neutrophils # (Auto) 13.38 K/uL (1.40-6.50) H 06/15/24 Lymphocytes # (Auto) 0.44 K/uL (1.20-3.40) L 06/15/24 Monocytes # (Auto) 0.78 K/uL (0.11-0.59) H 06/15/24 Eosinophils # (Auto) 0.03 K/uL (0.00-0.50) 06/15/24 Basophils # (Auto) 0.02 K/uL (0.00-0.20) 06/15/24 Immature Granulocyte # (Auto) 0.08 K/uL (0.01-0.20) 4 Polychromasia 1+ 06/15/24 Echinocytes 1+ 06/15/24 Toxic Vacuolation 1+ 06/15/24 Na 124 mmol/L (136-145) L 06/15/24 K 3.6 mmol/L (3.5-5.1) 06/15/24 Cl 87 mmol/L (98-107) L 06/15/24 CO2 25 mmol/L (21-32) 06/15/24 Anion Gap 12 (3-11) H 06/15/24 BUN 61 mg/dl (6-23) H 06/15/24 Creatinine 1.05 mg/dl (0.6-1.2) 06/15/24 BUN/Creatinine Ratio 58.1 (10-20) H 06/15/24 Glu 214 mg/dl (70-99(Fasting)) H 06/15/24 Ca 9.0 mg/dl (8.6-10.3) 06/15/24 Phosphorus Level 3.4 mg/dl (2.5-4.9) 06/15/24 Total Bilirubin 1.2 mg/dl (0.2-1.0) H 06/15/24 AST 103 U/L (13-39) H 06/15/24 ALT 99 U/L (7-52) H 06/15/24 Alkaline Phosphatase 78 U/L (34-104) 06/15/24 TP 6.7 gm/dl (6.0-8.3) 06/15/24 Albumin 3.7 gm/dl (3.4-5.0) 06/15/24 Globulin 3.0 gm/dl (2.5-4.0) 06/15/24 Albumin/Globulin Ratio 1.2 (0.9-2) 06/15/24 Mg 2.1 mg/dl (1.7-2.4) 06/15/24 02:04 Calcium Level 9.0 mg/dl (8.6-10.3) 06/15/24 14:48 Diagnostic Findings (Past 24 Hours) Head CT 06/15/24 00:09 EXAM: CT head/brain wo con CLINICAL HISTORY: cva TECHNIQUE: Axial non-contrast CT scan of the brain was performed from the skull base to the high parietal region with coronal and sagittal reformats. One of the following dose reduction techniques were utilized for this exam: Automated exposure control, adjustment of the mA and/or kV according to patient size, use of iterative reconstruction. COMPARISON: 06/13/2024 FINDINGS: Brain Parenchyma: Normal attenuation of the cerebral hemispheres, cerebellum, and brainstem. No evidence of acute infarct, hemorrhage, or mass effect. There are mildly accentuated white matter hypodensities in both the cerebral hemispheres suggestive of mild microvascular ischemic changes. Mild age-appropriate involutional changes are seen in the brain evident by widened extra-axial CSF spaces, and slightly deepened cortical sulci. Ventricular System: Ventricles are normal in size and configuration. No evidence of hydrocephalus or ventricular enlargement. Subarachnoid Spaces: No evidence of subarachnoid hemorrhage or extra-axial fluid collections. Cerebellum and Brainstem: Normal size and signal. No masses, lesions, or areas of abnormal signal. Orbits: Normal appearance of the globes, optic nerves, and extraocular muscles. No evidence of orbital masses or abnormal signal. Sinuses: Clear paranasal sinuses. No evidence of sinusitis or mucosal thickening. Mastoid Air Cells: Clear mastoid air cells. No evidence of mastoiditis. Skull and Meninges: Normal skull morphology. IMPRESSION: 1. No acute intracranial abnormality. 2. Mild microvascular ischemic changes and mild age-appropriate involutional changes are seen in the brain. Electronically signed by Jeremías Coelho 06-15-2024 01:12 AM Head CTA 06/15/24 00:09 EXAM: CT angio head w con CLINICAL HISTORY: cva 118 cc opti 320 TECHNIQUE: Axial CT angiography of the head was done with 118cc of opitray-320mg/ml contrast and sagittal and coronal reformats with MIP reconstructions. One of these 3D techniques was utilized: Maximum Intensity Pixel (MIP), 3D Reconstructed Images, Volume Rendered Images, Surface Shaded Rendering. One of the following dose reduction techniques were utilized for this exam: Automated exposure control, adjustment of the mA and/or kV according to patient size, and use of iterative reconstruction. COMPARISON: None. FINDINGS: Intracranial Arteries: The intracranial portions of the internal carotid arteries show crescentic calcified plaques causing mild stenosis (20-25%). The anterior cerebral arteries, middle cerebral arteries, posterior cerebral arteries, basilar artery, and vertebral arteries are well-opacified. 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 Focal speck of calcification is seen in the M1 segment of the left middle cerebral artery, not causing any luminal stenosis. No evidence of aneurysm, stenosis, or occlusion. No significant atherosclerotic changes. [place]: The [place] is complete. Normal caliber of the communicating arteries. No vascular malformations or aneurysms. Venous Structures: Normal opacification of the major dural venous sinuses. No evidence of venous sinus thrombosis. Brain Parenchyma: Normal attenuation of the cerebral hemispheres, cerebellum, and brainstem. No evidence of acute infarct, hemorrhage, or mass effect. Ventricular System: Ventricles are normal in size and configuration. No evidence of hydrocephalus or ventricular enlargement. Skull and Meninges: Normal appearance of the skull. No evidence of meningeal enhancement or thickening. Orbits: Normal appearance of the globes, optic nerves, and extraocular muscles. No evidence of orbital masses or abnormal signals. IMPRESSION: 1. Normal CT angiography of the head. 2. No evidence of significant vascular abnormalities. 3. 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 4. Focal speck of calcification is seen in the M1 segment of the left middle cerebral artery, not causing any luminal stenosis. 5. Mild stenosis of both ICA segments due to calcified plaques. Electronically signed by Jeremías Coelho 06-15-2024 01:20 AM Neck CTA 06/15/24 00:09 EXAM: CT angio neck with con CLINICAL HISTORY: cva 118 cc opti 320 TECHNIQUE: CT angiography study of the neck vessels with 118cc Opitray-320mg/ml IV contrast was performed and multiple axial sections were obtained with coronal and sagittal reconstructions. xOne of the following dose reduction techniques were utilized for this exam: Automated exposure control, adjustment of the mA and/or kV according to patient size, and use of iterative reconstruction. One of these 3D techniques was utilized: Maximum Intensity Pixel (MIP), 3D Reconstructed Images, Volume Rendered Images, Surface Shaded Rendering COMPARISON: 05/09/2022. FINDINGS: Carotid Arteries: Common carotid arteries, internal carotid arteries, and external carotid arteries bilaterally are well-opacified. No evidence of significant stenosis, occlusion, or aneurysm. No significant atherosclerotic changes. Vertebral Arteries: Vertebral arteries bilaterally are well-opacified. No evidence of significant stenosis, occlusion, or aneurysm. No significant atherosclerotic changes. Jugular Veins: Normal opacification of the internal and external jugular veins bilaterally. No evidence of thrombosis or compression. Subclavian Arteries: Subclavian arteries bilaterally are well-opacified. No evidence of significant stenosis, occlusion, or aneurysm. Thyroid Gland: Normal size and morphology of the thyroid gland. No masses or nodules. Soft Tissues: Normal appearance of the surrounding soft tissues of the neck. No abnormal masses or lymphadenopathy. Cervical Spine: Normal alignment and signal intensity of the cervical vertebrae. No fractures, lytic or sclerotic lesions. Incidental note is made of moderate-volume bilateral pleural effusions with passive atelectasis. IMPRESSION: 1. Normal CT angiography of the neck. 2. No evidence of significant vascular abnormalities. Electronically signed by Jeremías Coelho 06-15-2024 01:29 AM I & O Totals 24 Hours 06/14/24 06/15/24 06/16/24 06:59 06:59 06:59 Intake Total 1358.55 / 1358.55 768.333 / 768.333 810 / 810 Output Total 1825 / 1825 1200 / 1200 650 / 650 Balance -466.45 / -466.45 -431.667 / -431.667 160 / 160 Cumulative 06/13/24 10:21 thru 06/15/24 16:36 Intake Total 2936.883 Output Total 3675 Balance -738.117 RT Ventilator Mngmt (Last Documented) Ventilator Ordered Settings Respiratory Rate 18 06/15/24 14:26 Fraction of Inspired Oxygen 70 06/14/24 20:00 Ventilator - PT Measurements Respiratory Rate 18 PG Care Time/CCT Total # of Minutes Spent Total Time Spent with Patient: Total time spent is greater than 50% in coordination of care (as documented) at patient's floor/unit and/or counseling patient: Coding Level of Care Code 63847 SUB INP/OBS CARE 3/50MIN Diagnoses Bilateral pleural effusion J90 Raynaud's phenomenon without gangrene I73.00 Raynaud?s-associated gangrene presence: without gangrene Acute hypoxic respiratory failure J96.01 COVID-[address] R93.89
[2024-06-15] MEDS: GADOBUTROL 65ML VIAL IV ONE (23:07)
[2024-06-15 23:22] LABS: BUN Creatinine Ratio 53.1 (10-20); Calcium 8.6 mg/dl (8.6-10.3); Creatinine Clr Calc Pharmacy 41.9 ml/min; Potassium 4.2 mmol/L (3.5-5.1)
--- NOTE | 2024-06-15 23:35 | Magnetic Resonance Report ---
Exam(s): MRI HEAD W/WO Contrast IV Amt: 6cc gadavist EXAM: MR Head Without and With Intravenous Contrast CLINICAL HISTORY: Reason for exam: cva. TECHNIQUE: Magnetic resonance images of the head/brain without and with intravenous contrast in multiple planes. CONTRAST: Patient received 6cc gadavist of IV contrast COMPARISON: Head CT 06/15/2024 FINDINGS: Brain: No restricted diffusion. No intracranial hemorrhage. No mass- effect or cerebral edema. Periventricular and subcortical T2/flair hyperintensities favored to represent chronic microvascular ischemic changes. No abnormal enhancement. Some artifact on the postcontrast images. Ventricles: Unremarkable. No ventriculomegaly. Bones/joints: Unremarkable. No acute fracture. Sinuses: Unremarkable as visualized. No acute sinusitis. Mastoid air cells: Unremarkable as visualized. No mastoid effusion. Orbits: Unremarkable as visualized. IMPRESSION: No acute infarct. Electronically signed by: Khurram Alonso MD 06/15/24 23:33 PM
[2024-06-16 06:39] LABS: Basophils # (auto) 0.03 K/uL (0.00-0.20); Basophils % (auto) 0.2 %; Hematocrit (blood only) 33.6 % (37.0-47.0); Hemoglobin 12.1 g/dl (12.0-16.0); Immature Granulocytes # (auto) 0.27 K/uL (0.01-0.20); Lymphocytes # (auto) 0.61 K/uL (1.20-3.40); Lymphocytes % (auto) 4.5 %; Mean Corpuscular Hemoglobin 29.1 pg (25.0-34.0); Mean Corpuscular Volume 80.8 fL (80.0-100.0); Mean Platelet Volume 10.5 fL (9.4-12.4); Monocytes # (auto) 0.99 K/uL (0.11-0.59); Monocytes % (auto) 7.3 %; Neutrophils # (auto) 11.73 K/uL (1.40-6.50); Platelet Count 231 K/uL (130-400); RDW Coefficient of Variation 13.3 % (11.5-14.5); Red Blood Count 4.16 M/uL (4.20-5.40); White Blood Count 13.63 K/ul (4.8-10.8)
[2024-06-16 06:56] LABS: Albumin Globulin Ratio 1.1 (0.9-2); Albumin Level 3.1 gm/dl (3.4-5.0); BUN Creatinine Ratio 55.3 (10-20); Bilirubin,Total 0.8 mg/dl (0.2-1.0); Calcium 8.3 mg/dl (8.6-10.3); Creatinine Clr Calc Pharmacy 57.4 ml/min; Globulin 2.7 gm/dl (2.5-4.0); Potassium 3.7 mmol/L (3.5-5.1); Total Protein 5.8 gm/dl (6.0-8.3)
[2024-06-16 07:02] LABS: BUN Creatinine Ratio 55.3 (10-20); Calcium 8.3 mg/dl (8.6-10.3); Creatinine Clr Calc Pharmacy 57.4 ml/min; Potassium 3.6 mmol/L (3.5-5.1)
--- NOTE | 2024-06-16 08:24 | Pulmonology Progress Note ---
Date of Service June 16, 2024 Assessment & Plan (1) Bilateral pleural effusion: (2) Raynauds phenomenon: Raynaud?s-associated gangrene presence: without gangrene Qualified Code(s): I73.00 - Raynaud's syndrome without gangrene (3) Acute hypoxic respiratory failure: (4) COVID-19: (5) Abnormal chest CT: Plan Impression: 74-year-old female present to the hospital post fall. Was found to be COVID-positive and having bilateral pleural effusion. Pulmonary consulted for hypoxia and pleural effusion Recommendations: 1. Bilateral pleural effusions: Minimally symptomatic currently. Continue with diuresis. No indication for sampling currently. BNP elevated on presentation and procalcitonin normal. 2. Hypoxemia: Significantly improved. Down to 2 L nasal cannula at this time. No respiratory distress currently. Wean oxygen as tolerated to keep saturations at or above 88%. 3. Electrolytes and kidney function per nephrology. 4. COVID: Pleural effusions unlikely to be related to COVID. Echocardiogram showed preserved EF (60 to 65%) with normal wall motion. No evidence of significant valvular disease. 5. Out of bed to chair and ambulate in the room is much as possible. Discussed with nursing staff. They will also encourage her to utilize her incentive spirometer. 6. Suspect that the dependent areas of consolidation or compressive atelectasis. Can likely discontinue steroids once the patient is off oxygen. Thank you for allowing us to participate in the care of this pleasant patient. Pulmonary medicine will sign off at this time. Admission and Anticipated Discharge Date Admission Date: June 13, 2024 Subjective Patient was seen and evaluated at bedside today. She states that she feels much better than when she initially arrived. She has an occasional cough which is minimally productive. No complaints of chest pain, palpitations, or presyncope. Her appetite is improving. Review of Systems Review of Systems: As per subjective Physical Exam Physical Exam: VITAL SIGNS Vital signs and nursing notes were reviewed. GENERAL 74-year-old female appearing her stated age who is in no acute distress. Communicates well with provider and answers questions appropriately. SKIN Without rashes or lesions. NOSE Midline and without cyanosis. No epistaxis or purulent drainage noted. MOUTH/OROPHARYNX Without perioral cyanosis. NECK Neck with FROM. LUNGS Chest wall evaluation demonstrates normal chest wall A:P diameter. Auscultation reveals diminished breath sounds at the bases bilaterally. CARDIAC RRR with S1/S2. No murmur, rubs, or gallops appreciated. ABDOMEN Abdominal inspection demonstrates a flat abdomen. BS normoactive all four quadrants. No tenderness, palpable masses, or ascites noted. EXTREMITIES Nail clubbing not present. No peripheral cyanosis. No pretibial edema present. +3/5 radial palpated throughout. PSYCH A&Ox3 and cooperates fully with examiner. Pt is very pleasant and interacts well with examiner. Results & Data Results & Data Vital Signs (Past 12 Hours) Vital Signs Temp Pulse Pulse Resp BP Pulse Ox O2 Del Method 06/16/24 07:40 36.5 C 80 24 95/49 L 96 Nasal Cannula 06/16/24 04:04 36.6 C 74 18 100/56 L 100 Oxymask 06/15/24 23:31 36.9 C 80 18 110/63 99 Oxymask 06/15/24 22:00 80 O2 Flow Rate 06/16/24 07:40 3 06/16/24 04:04 3 06/15/24 23:31 3 06/15/24 22:00 PG Care Time/CCT Total # of Minutes Spent Total Time Spent with Patient: Total time spent is greater than 50% in coordination of care (as documented) at patient's floor/unit and/or counseling patient: Coding Level of Care Code 77998 SUB INP/OBS CARE 08/15MIN Diagnoses Bilateral pleural effusion J90 Raynaud's phenomenon without gangrene I73.00 Raynaud?s-associated gangrene presence: without gangrene Acute hypoxic respiratory failure J96.01 COVID-[address] R93.89
--- NOTE | 2024-06-16 09:05 | Neurology Consultation ---
Date of Consultation June 16, 2024 Assessment & Plan (1) Stroke-like symptoms: generalized weakness in a 74F with an active COVID infection. ON exam she is weak but it is non-focal. MRI shows no evidence of an acute stroke. I suspect that her weakness is secondary to her general medical condition and is not primarily neurologic. Plan -- no further neurologic work up -- neurology with sign off Telehealth Consultation Telehealth Information Telehealth Information: I performed this visit using a real-time telehealth connection between my location and the patients location ([facility]). After connecting through interactive tele-video, patient was identified by name and date of and/or wristband check.Patient (or authorized healthcare assistance representative) was informed that this was a telemedicine visit and it was being conducted confidentially over secure lines. My office door was closed and no one else was present in the room with me.Patient (or authorized healthcare assistance representative) provided consent to proceed with the visit, expressed an understanding of privacy and security of the telemedicine visit, and gave permis stephenei to have a hospital assistance representative in the room in order to assist with the visit and to conduct portions of the visit, as needed. I informed the patient (or authorized healthcare assistance representative) that I reviewed their record and presented the opportunity for them to ask any questions regarding the visit today. The patient agreed to participate. History of Present Illness Reason for Consultation: Stroke Like symptoms Attending Physician: Jen Day MD History of Present Illness Aisha Garnica is a 74F with a PMH of Raynaud's, chronic vertigo, thoracic ascending aneurysm, chronic venous insufficiency with history of recurrent venous ulcers previously followed at the wound clinic who presented to the ED after being found down. She was diagnosed with COVID a couple of days prior to entering the hospital and then was found down at home unable to get back into bed. On arrival to the ED she was hyponatremic with an elevated CK. Currently she continues to endorse generalized weakness but nothing focal. Allergies Allergy/AdvReac Type Severity Reaction Status Date / Time Estrogens Allergy Mild ` Verified 03/16/24 08:37 bacitracin Allergy Unknown POLYSPORIN Verified 03/16/24 08:37 polymyxin B Allergy Unknown POLYSPORIN Verified 03/16/24 08:37 Sulfa (Sulfonamide AdvReac Unknown ` Verified 03/16/24 08:37 Antibiotics) sulfamethoxazole AdvReac Unknown ` Verified 03/16/24 08:37 trimethoprim AdvReac Unknown ` Verified 03/16/24 08:37 Home Medications Medication Instructions Recorded Confirmed Type aspirin 81 mg tablet,delayed 81 mg PO UD 09/22/20 06/13/24 History release cholecalciferol (vitamin D3) 25 25 mcg PO DAILY 09/22/20 06/13/24 History mcg (1,000 unit) capsule nifedipine 90 mg tablet,extended 90 mg PO QAM 10/20/20 06/13/24 History release potassium chloride 10 mEq 10 meq PO QAM 10/20/20 06/13/24 History capsule,extended release valacyclovir 1 gram tablet 2,000 mg PO Q12H PRN Cold Sores 10/20/20 06/13/24 History meclizine 25 mg tablet 25 mg PO TID PRN dizziness #20 tabs 09/22/21 06/13/24 Rx ascorbic acid (vitamin C) 500 mg 500 mg PO DAILY 11/18/22 06/13/24 History tablet (Vitamin C) calcium carbonate 500 mg PO DAILY 11/18/22 06/13/24 History cetirizine 10 mg tablet (Zyrtec) 10 mg PO DAILY PRN Other 11/18/22 06/13/24 History lactase 9,000 unit chewable tablet 9,000 unit PO AC PRN .Intolerance 11/18/22 06/13/24 History (Lactaid Fast Act) sennosides 8.6 mg tablet (senna) 8.6 mg PO UD 11/18/22 06/13/24 History nirmatrelvir 300 mg (150 mg 1 ea PO DIRECTED 06/13/24 06/13/24 History x2)-ritonavir 100 mg tablet,dose pack (Paxlovid) Patient History Medical History Sensorineural hearing loss (SNHL) of both ears AD: mild HF SNHL, : mild to mod SNHL Chronic venous insufficiency of lower extremity History of 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 Dermatitis, eczematoid Dysplastic nevus Raynauds phenomenon Rosacea TMJ (temporomandibular joint syndrome) Vitamin D deficiency Fracture, sacrum/coccyx Surgical History History of breast lump/mass excision Status post endovenous radiofrequency ablation of saphenous vein H/O inguinal hernia repair Hx of tonsillectomy S/P endometrial ablation H/O tubal ligation Family History Father Stroke Other Diabetes Social History Smoking Status: Never smoker Tobacco Type: Cigarettes Do You Dip or Chew Tobacco: No; Hx Alcohol Use: No Hx Substance Use: No Preferred Language: Malay Communication Ability: Effective Visual Impairment: Limited Hearing Ability: Use of Hearing Aid Dissolver Operator Required: No Beliefs That Will Affect Care: None marital status: Single Current Living Situation: Alone current occupational status: employed current occupation: [employer] How many Children do You have: 2 How many Children do You have Comment: one son lives locally that is able to assist as needed Feels Safe at Home: Yes Safety Concerns: Feels Safe At This Time during the past year weight has: remained stable Assistive Devices: Cane Physical Exam NEUROLOGIC EXAMINATION: Mental Status:alert, oriented to time, place, person, normal recent memory, normal remote memory, normal attention span, normal concentration, normal language, and normal fund of knowledge Cranial Nerves: CN 2 - no visual defect on confrontation and pupils round, equal, reactive to light CN 3, 4, 6 - extra-ocular movements intact and no nystagmus CN 5 - facial sensation intact CN 7 - no facial asymmetry CN 8 - intact hearing CN 9, 10 - palate symmetric, normal gag CN 11 - good shoulder shrug CN 12 - tongue midline MOTOR: Strength was at least antigravity throughout, Pronator drift was absent, and There were no abnormal movements SENSATION: intact GAIT: deferred COORDINATION: no ataxia with finger to nose testing and heel to ospina testing REFLEXES: cannot assess over telemedicine Results & Data Vital Signs (Past 12 Hours) Vital Signs Temp Pulse Pulse Resp BP Pulse Ox O2 Del Method 06/16/24 07:40 36.5 C 80 24 95/49 L 96 Nasal Cannula 06/16/24 04:04 36.6 C 74 18 100/56 L 100 Oxymask 06/15/24 23:31 36.9 C 80 18 110/63 99 Oxymask 06/15/24 22:00 80 O2 Flow Rate 06/16/24 07:40 3 06/16/24 04:04 3 06/15/24 23:31 3 06/15/24 22:00 Laboratory Results Abnormal Lab Results 06/15/24 06/15/24 06/15/24 08:28 12:18 14:48 WBC RBC Hgb Hct MCV MCH MCHC RDW Std Deviation RDW Coeff of [place]rec[place] Plt Count MPV Immature Gran % (Auto) Neut % (Auto) Lymph % (Auto) [place] % (Auto) Eos % (Auto) Baso % (Auto) Neut # (Auto) Lymph # (Auto) [place] # (Auto) Eos # (Auto) Baso # (Auto) Immature Gran # (Auto) Sodium 124 L Potassium 3.6 Chloride 87 L Carbon Dioxide 25 Anion Gap 12 H BUN 61 H Creatinine 1.05 Est Cr Clr Drug Dosing 38.3 eGFR 56.45 BUN/Creatinine Ratio 58.1 H Glucose 214 H Calcium 9.0 Total Bilirubin AST ALT Alkaline Phosphatase Troponin I High Sens 21.0 H 27.0 H Total Protein Albumin Globulin Albumin/Globulin Ratio 06/15/24 06/16/24 06/16/24 22:27 05:57 05:57 WBC 13.63 H RBC 4.16 L Hgb 12.1 Hct 33.6 L MCV 80.8 MCH 29.1 MCHC 36.0 RDW Std Deviation 39.0 RDW Coeff of Grecia 13.3 Plt Count 231 MPV 10.5 Immature Gran % (Auto) 2.0 Neut % (Auto) 86.0 Lymph % (Auto) 4.5 [place] % (Auto) 7.3 Eos % (Auto) 0.0 Baso % (Auto) 0.2 Neut # (Auto) 11.73 H Lymph # (Auto) 0.61 L [place] # (Auto) 0.99 H Eos # (Auto) 0.00 Baso # (Auto) 0.03 Immature Gran # (Auto) 0.27 H Sodium 125 L 131 L 129 L Potassium 4.2 3.7 Chloride 91 L Carbon Dioxide 25 Anion Gap 9 BUN 51 H Creatinine 0.96 Est Cr Clr Drug Dosing 41.9 eGFR 62.86 BUN/Creatinine Ratio 53.1 H Glucose 144 H Calcium 8.6 Total Bilirubin AST ALT Alkaline Phosphatase Troponin I High Sens Total Protein Albumin Globulin Albumin/Globulin Ratio 06/16/24 06/16/24 06/16/24 05:57 05:57 05:57 WBC RBC Hgb Hct MCV MCH MCHC RDW Std Deviation RDW Coeff of [place]rec[place] Plt Count MPV Immature Gran % (Auto) Neut % (Auto) Lymph % (Auto) [place] % (Auto) Eos % (Auto) Baso % (Auto) Neut # (Auto) Lymph # (Auto) [place] # (Auto) Eos # (Auto) Baso # (Auto) Immature Gran # (Auto) Sodium Potassium 3.6 Chloride 96 L 95 L Carbon Dioxide 26 25 Anion Gap 9 BUN Creatinine Est Cr Clr Drug Dosing eGFR BUN/Creatinine Ratio Glucose Calcium Total Bilirubin AST ALT Alkaline Phosphatase Troponin I High Sens Total Protein Albumin Globulin Albumin/Globulin Ratio 06/16/24 06/16/24 06/16/24 05:57 05:57 05:57 WBC RBC Hgb Hct MCV MCH MCHC RDW Std Deviation RDW Coeff of [place]recia Plt Count MPV Immature Gran % (Auto) Neut % (Auto) Lymph % (Auto) [place] % (Auto) Eos % (Auto) Baso % (Auto) Neut # (Auto) Lymph # (Auto) [place] # (Auto) Eos # (Auto) Baso # (Auto) Immature Gran # (Auto) Sodium Potassium Chloride Carbon Dioxide Anion Gap 9 BUN 42 H 42 H Creatinine 0.76 0.76 Est Cr Clr Drug Dosing 57.4 eGFR BUN/Creatinine Ratio Glucose Calcium Total Bilirubin AST ALT Alkaline Phosphatase Troponin I High Sens Total Protein Albumin Globulin Albumin/Globulin Ratio 06/16/24 06/16/24 06/16/24 05:57 05:57 05:57 WBC RBC Hgb Hct MCV MCH MCHC RDW Std Deviation RDW Coeff of Grecia Plt Count MPV Immature Gran % (Auto) Neut % (Auto) Lymph % (Auto) [place] % (Auto) Eos % (Auto) Baso % (Auto) Neut # (Auto) Lymph # (Auto) [place] # (Auto) Eos # (Auto) Baso # (Auto) Immature Gran # (Auto) Sodium Potassium Chloride Carbon Dioxide Anion Gap BUN Creatinine Est Cr Clr Drug Dosing 57.4 eGFR 83.20 83.20 BUN/Creatinine Ratio 55.3 H 55.3 H Glucose 114 H Calcium Total Bilirubin AST ALT Alkaline Phosphatase Troponin I High Sens Total Protein Albumin Globulin Albumin/Globulin Ratio 06/16/24 06/16/24 05:57 05:57 WBC RBC Hgb Hct MCV MCH MCHC RDW Std Deviation RDW Coeff of Grecia Plt Count MPV Immature Gran % (Auto) Neut % (Auto) Lymph % (Auto) [place] % (Auto) Eos % (Auto) Baso % (Auto) Neut # (Auto) Lymph # (Auto) [place] # (Auto) Eos # (Auto) Baso # (Auto) Immature Gran # (Auto) Sodium Potassium Chloride Carbon Dioxide Anion Gap BUN Creatinine Est Cr Clr Drug Dosing eGFR BUN/Creatinine Ratio Glucose 114 H Calcium 8.3 L 8.3 L Total Bilirubin 0.8 AST 57 H ALT 72 H Alkaline Phosphatase 73 Troponin I High Sens Total Protein 5.8 L Albumin 3.1 L Globulin 2.7 Albumin/Globulin Ratio 1.1 Diagnostic Findings Brain MRI 06/15/24 09:00 Exam(s): MRI HEAD W/WO Contrast IV Amt: 6cc gadavist EXAM: MR Head Without and With Intravenous Contrast CLINICAL HISTORY: Reason for exam: cva. TECHNIQUE: Magnetic resonance images of the head/brain without and with intravenous contrast in multiple planes. CONTRAST: Patient received 6cc gadavist of IV contrast COMPARISON: Head CT 06/15/2024 FINDINGS: Brain: No restricted diffusion. No intracranial hemorrhage. No mass- effect or cerebral edema. Periventricular and subcortical T2/flair hyperintensities favored to represent chronic microvascular ischemic changes. No abnormal enhancement. Some artifact on the postcontrast images. Ventricles: Unremarkable. No ventriculomegaly. Bones/joints: Unremarkable. No acute fracture. Sinuses: Unremarkable as visualized. No acute sinusitis. Mastoid air cells: Unremarkable as visualized. No mastoid effusion. Orbits: Unremarkable as visualized. IMPRESSION: No acute infarct. Electronically signed by: Khurram Alonso MD 06/15/24 23:33 PM
--- NOTE | 2024-06-16 10:13 | Nephrology Progress Note ---
Date of Service June 16, 2024 Assessment & Plan Admission and Anticipated Discharge Date Admission Date: June 13, 2024 Subjective Assessment & Plan (1) Hyponatremia: Na was 121 on admission yesterday, dropped to 118 and up to 126 this AM Serum osm 253 on admission. Uosm 618. Jayde 10, likely sec to fluid overload on background of SIADH various combination of NS, lasix and Hypertonic saline and also d5w given mainly because of Stroke like symptoms. at 118---126 range of Na+ Stroke like symptoms does not happen and these symptoms had nothing to do with Low Na+. True and true but unrelated. rate of correction was never really that fast to be concerned. Please manage Stroke Like Symptoms like you would normally do. FFR 1200 ml when PO allowed.. lasix 20 iv q12 to continue. na is 129 now. made 1900 ml urine Labs p86v--cifmc panel. K is low --so continue kcl 20 meq po bid. BUN is high from Urea but not on now and BUN nis going down. BP is borderline low so continue to hold Nifedipine (2) Acute hypoxic respiratory failure: CT chest noted moderate right and small left pleural effusion. B/L lower lobe opacities vs atelectasis S--had Some " stroke like symptoms". Making urine. Labs better. Physical Exam Physical Exam: Constitutional: No acute distress. on o2 -6 liter HEENT: MM moist. neck Supple. Respiratory system: Decreased air entry bilaterally, no wheeze, no rhonchi, positive crackles bilateral lower lobes CVS: S1-S2 positive Abdomen: Soft, nontender, nondistended, Extremities: minimal pitting edema bilateral lower extremity Neuro: Awake alert oriented x3 Psych: Normal mood and affect G/U: Positive Vigil Results & Data Vital Signs (Past 12 Hours) Vital Signs Temp Pulse Resp BP Pulse Ox O2 Del Method O2 Flow Rate 06/16/24 07:40 36.5 C 80 24 95/49 L 96 Nasal Cannula 3 06/16/24 04:04 36.6 C 74 18 100/56 L 100 Oxymask 3 06/15/24 23:31 36.9 C 80 18 110/63 99 Oxymask 3
--- NOTE | 2024-06-16 11:04 | Hospitalist Progress Note ---
Date of Service June 16, 2024 Assessment & Plan (1) Acute hypoxic respiratory failure: (2) Bilateral pleural effusion: (3) COVID-19: Plan: 74 year old woman with Raynaud's, chronic vertigo, thoracic ascending aneurysm, chronic venous insufficiency with history of recurrent venous ulcers previously followed at the wound clinic who was brought into the ED as a trauma alert. Found to be hypoxic by EMS and was placed on O2 that had to be titrated up to hi gh flow before patient was ultimately placed on BiPAP. Was diagnosed with COVID on 06/09 (symptoms since 06/06) and prescribed Paxlovid as outpatient. Unclear how long patient was on the floor but she thinks that she may have fallen trying to get out of bed last night. CT chest noted moderate right and small left pleural effusion. Procal is normal Antibiotics was stopped Wean oxygen as tolerated Continue dexamethasone Continue IV lasix for now and monitor Wean oxygen as tolerated (4) Stroke-like symptoms: Plan: Stroke like symptom was reported overnight of 06/14/24. CT head did not show any acute abnormalities CTA Head/Neck did not show significant vascular abnormalities. 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 Mild stenosis of both ICA segments due to calcified plaques MRI brain did not show any acute abnormalities Neuro recs noted Likely weakness is due to medical problems as above and not neurologic problems (5) Rhabdomyolysis: Plan: Unclear how long patient was down at home CK in the ED elevated at 2446. Creatinine normal Received ~800 ml of fluid in the ED CK trended down (6) Hyponatremia: Plan: Na was 121 on admission yesterday, dropped to 118 and up to 125 this AM Serum osm 253 on admission. Uosm 618. Jayde 10 Hypervolemina Nephrology on board Continue IV lasix Na 129 today (7) Raynauds phenomenon: Plan: Chronic, stable Continue nifedipine (8) Venous insufficiency (chronic) (peripheral): Plan: Chronic, stable Plan Code status: full code DVT prophylaxis: Marita Winter spent a total of 50 minutes coordinating, documenting and providing care for this patient excluding time spent in performance of separately billed services Admission and Anticipated Discharge Date Admission Date: June 13, 2024 Subjective Patient seen and examined Patient reports feeling a little better today. Still weak Reports cough Denied SOB, Chest pain Denied any other new complaints Physical Exam Constitutional: no acute distress Eyes: PERRL, conjunctivae normal, anicteric sclerae ENMT: external ear and nose normal, oropharynx normal Respiratory: On nasal cannula, Diminished breath sounds lung bases Cardiovascular: Rate/Rhythm: regular rate and regular rhythm Gastrointestinal (Abdomen): normal bowel sounds, soft, nontender, no hepatosplenomegaly Musculoskeletal: No pedal edema Neurologic: PERRL, EOMI, accommodation nl, no face palsy, no dysarthria Psychiatric: A+Ox3, euthymic affect Results & Data Results & Data Vital Signs (Past 12 Hours) Vital Signs Temp Pulse Resp BP Pulse Ox O2 Del Method O2 Flow Rate 06/16/24 07:40 36.5 C 80 24 95/49 L 96 Nasal Cannula 3 06/16/24 04:04 36.6 C 74 18 100/56 L 100 Oxymask 3 06/15/24 23:31 36.9 C 80 18 110/63 99 Oxymask 3 Laboratory Results Abnormal lab results 06/15/24 06/15/24 06/15/24 Range/Units 12:18 14:48 22:27 WBC (4.8-10.8) K/ul RBC (4.20-5.40) M/uL Hct (37.0-47.0) % Neut # (Auto) (1.40-6.50) K/uL Lymph # (Auto) (1.20-3.40) K/uL [place] # (Auto) (0.11-0.59) K/uL Immature Gran # (Auto) (0.01-0.20) K/uL Sodium 124 L 125 L (136-145) mmol/L Chloride 87 L 91 L (98-107) mmol/L Anion Gap 12 H (3-11) BUN 61 H 51 H (6-23) mg/dl BUN/Creatinine Ratio 58.1 H 53.1 H (10-20) Glucose 214 H 144 H (70-99(Fasting)) mg/dl Calcium (8.6-10.3) mg/dl AST (13-39) U/L ALT (7-52) U/L Troponin I High Sens 27.0 H (0-14) pg/ml Total Protein (6.0-8.3) gm/dl Albumin (3.4-5.0) gm/dl 06/16/24 06/16/24 06/16/24 Range/Units 05:57 05:57 05:57 WBC 13.63 H (4.8-10.8) K/ul RBC 4.16 L (4.20-5.40) M/uL Hct 33.6 L (37.0-47.0) % Neut # (Auto) 11.73 H (1.40-6.50) K/uL Lymph # (Auto) 0.61 L (1.20-3.40) K/uL [place] # (Auto) 0.99 H (0.11-0.59) K/uL Immature Gran # (Auto) 0.27 H (0.01-0.20) K/uL Sodium 131 L 129 L (136-145) mmol/L Chloride 96 L 95 L (98-107) mmol/L Anion Gap (3-11) BUN 42 H (6-23) mg/dl BUN/Creatinine Ratio (10-20) Glucose (70-99(Fasting)) mg/dl Calcium (8.6-10.3) mg/dl AST (13-39) U/L ALT (7-52) U/L Troponin I High Sens (0-14) pg/ml Total Protein (6.0-8.3) gm/dl Albumin (3.4-5.0) gm/dl 06/16/24 06/16/24 06/16/24 Range/Units 05:57 05:57 05:57 WBC (4.8-10.8) K/ul RBC (4.20-5.40) M/uL Hct (37.0-47.0) % Neut # (Auto) (1.40-6.50) K/uL Lymph # (Auto) (1.20-3.40) K/uL [place] # (Auto) (0.11-0.59) K/uL Immature Gran # (Auto) (0.01-0.20) K/uL Sodium (136-145) mmol/L Chloride (98-107) mmol/L Anion Gap (3-11) BUN 42 H (6-23) mg/dl BUN/Creatinine Ratio 55.3 H 55.3 H (10-20) Glucose 114 H 114 H (70-99(Fasting)) mg/dl Calcium 8.3 L (8.6-10.3) mg/dl AST (13-39) U/L ALT (7-52) U/L Troponin I High Sens (0-14) pg/ml Total Protein (6.0-8.3) gm/dl Albumin (3.4-5.0) gm/dl 06/16/24 Range/Units 05:57 WBC (4.8-10.8) K/ul RBC (4.20-5.40) M/uL Hct (37.0-47.0) % Neut # (Auto) (1.40-6.50) K/uL Lymph # (Auto) (1.20-3.40) K/uL [place] # (Auto) (0.11-0.59) K/uL Immature Gran # (Auto) (0.01-0.20) K/uL Sodium (136-145) mmol/L Chloride (98-107) mmol/L Anion Gap (3-11) BUN (6-23) mg/dl BUN/Creatinine Ratio (10-20) Glucose (70-99(Fasting)) mg/dl Calcium 8.3 L (8.6-10.3) mg/dl AST 57 H (13-39) U/L ALT 72 H (7-52) U/L Troponin I High Sens (0-14) pg/ml Total Protein 5.8 L (6.0-8.3) gm/dl Albumin 3.1 L (3.4-5.0) gm/dl (5) Rhabdomyolysis Rhabdomyolysis type: non-traumatic Qualified Code(s): M62.82 - Rhabdomyolysis (7) Raynauds phenomenon Raynaud?s-associated gangrene presence: without gangrene Qualified Code(s): I73.00 - Raynaud's syndrome without gangrene
[2024-06-17 08:05] LABS: BUN Creatinine Ratio 48.1 (10-20); Calcium 8.5 mg/dl (8.6-10.3); Creatinine Clr Calc Pharmacy 82.4 ml/min; Potassium 3.8 mmol/L (3.5-5.1)
[2024-06-17 08:07] LABS: Basophils # (auto) 0.04 K/uL (0.00-0.20); Basophils % (auto) 0.3 %; Hematocrit (blood only) 36.7 % (37.0-47.0); Hemoglobin 13.2 g/dl (12.0-16.0); Immature Granulocytes # (auto) 0.51 K/uL (0.01-0.20); Immature Granulocytes % (auto) 3.9 %; Lymphocytes # (auto) 0.95 K/uL (1.20-3.40); Lymphocytes % (auto) 7.3 %; Mean Corpuscular Hemoglobin 29.5 pg (25.0-34.0); Mean Corpuscular Volume 81.9 fL (80.0-100.0); Mean Platelet Volume 11.3 fL (9.4-12.4); Monocytes # (auto) 1.48 K/uL (0.11-0.59); Monocytes % (auto) 11.4 %; Neutrophils # (auto) 10.05 K/uL (1.40-6.50); Neutrophils % (auto) 77.1 %; Platelet Count 259 K/uL (130-400); RDW Coefficient of Variation 13.8 % (11.5-14.5); RDW Standard Deviation 40.7 fL (36.4-46.3); Red Blood Count 4.48 M/uL (4.20-5.40); White Blood Count 13.03 K/ul (4.8-10.8)
--- NOTE | 2024-06-17 09:26 | Nephrology Progress Note ---
Date of Service June 17, 2024 Assessment & Plan Admission and Anticipated Discharge Date Admission Date: June 13, 2024 Subjective Assessment & Plan (1) Hyponatremia: Serum osm 253 on admission. Uosm 618. Jayde 10, likely sec to fluid overload on background of SIADH various combination of NS, lasix and Hypertonic saline and also d5w given mainly because of Stroke like symptoms. at 118---126 range of Na+ Stroke like symptoms does not happen and these symptoms had nothing to do with Low Na+. True and true but unrelated. rate of correction was never really that fast to be concerned. Please manage Stroke Like Symptoms like you would normally do. FFR 1500 ml when PO allowed.. lasix 20 iv q12 to continue till AM tomorrow. Stop after AM dose. na is normal at 137 now. made 1900 ml urine Labs daily CBC and renal panel. K is normal today--so continue kcl 20 meq po bid till she is on IV lasix BUN was high from Urea but not on now and BUN nis going down. BP is borderline low so continue to hold Nifedipine. restart only when BP starts getting to more than >140 SBP (2) Acute hypoxic respiratory failure: CT chest noted moderate right and small left pleural effusion. B/L lower lobe opacities vs atelectasis S--No new issues. Overall feeling better. Making urine. Labs better. Physical Exam Physical Exam: Constitutional: No acute distress. on o2 -6 liter HEENT: MM moist. neck Supple. Respiratory system: Decreased air entry bilaterally, no wheeze, no rhonchi, positive crackles bilateral lower lobes CVS: S1-S2 positive Abdomen: Soft, nontender, nondistended, Extremities: minimal pitting edema bilateral lower extremity Neuro: Awake alert oriented x3 Psych: Normal mood and affect G/U: Positive Vigil Results & Data Vital Signs (Past 12 Hours) Vital Signs Temp Pulse Pulse Resp BP Pulse Ox O2 Del Method 06/17/24 08:02 36.5 C 66 18 122/72 95 Nasal Cannula 06/17/24 07:00 15 94 Room Air 06/17/24 03:33 36.5 C 60 17 125/64 94 Nasal Cannula 06/16/24 22:02 36.5 C 74 20 126/67 93 Nasal Cannula 06/16/24 22:00 67 O2 Flow Rate 06/17/24 08:02 1 06/17/24 07:00 06/17/24 03:33 06/16/24 22:02 1 06/16/24 22:00
--- NOTE | 2024-06-17 10:34 | Hospitalist Progress Note ---
Date of Service June 17, 2024 Assessment & Plan (1) Acute hypoxic respiratory failure: (2) Bilateral pleural effusion: (3) COVID-19: (4) Stroke-like symptoms: (5) Rhabdomyolysis: (6) Hyponatremia: (7) Raynauds phenomenon: (8) Venous insufficiency (chronic) (peripheral): Plan 74yoF with PMHx significant for Raynaud's, chronic vertigo, thoracic ascending aneurysm, chronic venous insufficiency with history of recurrent venous ulcers who previously followed at the wound clinic who was brought into the ED as a trauma alert. Found to be hypoxic by EMS and was placed on O2 that had to be titrated up to high flow before patient was ultimately placed on BiPAP. Acute hypoxic respiratory failure Bilateral pleural effusions COVID-19 Pneumonia Was diagnosed with COVID on 06/09 (symptoms since 06/06) and prescribed Paxlovid as an outpatient. Unclear how long patient was on the floor after her fall at home but she thinks that she may have fallen trying to get out of bed the night before. CT chest noted moderate right and small left pleural effusions and multiple airspace opacities bilaterally. Procal was normal Was on Zosyn and doxycycline IV Dexamethasone was started, continue while hospitalized IV Lasix was started for the pleural effusions, continue per recs of nephrology Weaned oxygen as tolerated Pulmonology was consulted, recommended/stated the following: "Recommendations: 1. Bilateral pleural effusions: Minimally symptomatic currently. Continue with diuresis. No indication for sampling currently. BNP elevated on presentation and procalcitonin normal. 2. Hypoxemia: Significantly improved. Down to 2 L nasal cannula at this time. No respiratory distress currently. Wean oxygen as tolerated to keep saturations at or above 88%. 3. Electrolytes and kidney function per nephrology. 4. COVID: Pleural effusions unlikely to be related to COVID. Echocardiogram showed preserved EF (60 to 65%) with normal wall motion. No evidence of significant valvular disease. 5. Out of bed to chair and ambulate in the room is much as possible. Discussed with nursing staff. They will also encourage her to utilize her incentive spirometer. 6. Suspect that the dependent areas of consolidation or compressive atelectasis. Can likely discontinue steroids once the patient is off oxygen." Improving Volume Overload Body wall edema CT abdomen pelvis noting body wall edema and suggestive of volume overload BNP 442 Echo ordered to rule out congestive heart failure as a possible cause. Noted EF of 60 to 65%, normal left ventricle, no pericardial effusion, no significant valvular disease. Diastolic dysfunction was not able to be evaluated. Continue with IV Lasix 20 mg twice daily at this time Continue to monitor I's and's O's Improving Hyponatremia Na was 121 on admission, dropped to 118 and has been trending back up Serum osm 253 on admission. Uosm 618. Jayde 10 Hypervolemia Nephrology was consulted, appreciate recs. Recommended/stated the following: -fluid restriction of 1500 ml when PO allowed -lasix 20 iv q12 to continue till AM tomorrow. Stop after AM dose. - continue kcl 20 meq po bid, consider d/c once off IV Lasix Hypokalemia On KCl 20mEq BID while on lasix replete as needed Leukocytosis Pt with persistent leukocytosis, neutrophilia and monocytosis noted Pt with noted viral covid infection, procal negative so less likely a superimposed bacterail infection imaging as noted above UA ordered and pending Continue to monitor WBC with diff with AM labs Bladder distention Imaging noting bladder distention Pt with vera in place Monitor urine output Fall Pt presented with fall at home head CT done on admission as well as femur x-ray, C-spine CT, chest x-ray, abdomen pelvis CT all without acute fractures Fall precautions PT OT recommending acute rehab Case management working on placement to [facility] Stroke-like symptoms Stroke like symptoms were reported overnight on 06/14/24. 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 Mild stenosis of both ICA segments due to calcified plaques" MRI brain did not show any acute abnormalities Echo with findings as noted above, no mention of shunt PT OT recommending acute rehab Neurology was consulted, appreciate recs. Recommended or stated the following: "generalized weakness in a 74F with an active COVID infection. ON exam she is weak but it is non-focal. MRI shows no evidence of an acute stroke. I suspect that her weakness is secondary to her general medical condition and is not primarily neurologic. no further neurologic work up" Currently stable Rhabdomyolysis Unclear how long patient was down at home CK in the ED elevated at 2446, downtrending Creatinine normal Received ~800 ml of fluid in the ED Stable Raynauds phenomenon Chronic, stable Continue nifedipine Venous insufficiency (chronic) (peripheral) Chronic, stable Diet: HH, FR 1200ml, easy to chew Code status: full code DVT prophylaxis: Lovenox Dispo: anticipate d/c to [facility] Admission and Anticipated Discharge Date Admission Date: June 13, 2024 Subjective Patient was seen in the AM. Alert and oriented x 3. Brech history was present, stated she had just finished eating some oatmeal. States that the legs were sore and that her right ear hurts. Also noting that potassium chung her tongue. Review of Systems Review of Systems: All systems reviewed & are unremarkable except as noted in Subjective Physical Exam Physical Exam: General: Alertx3, oriented. No acute distress Psych: Appropriate mood and affect Neuro: Slow/halting speech, AAOx3 HEENT: NC/AT CV: RRR Resp: Breath sounds clear bilaterally, no increased effort of breathing Abdomen:Soft, nontender Extremities: No edema in lower extremities bilaterally. Results & Data Results & Data Vital Signs (Past 12 Hours) Vital Signs Temp Pulse Resp BP Pulse Ox O2 Del Method O2 Flow Rate 06/17/24 08:02 36.5 C 66 18 122/72 95 Nasal Cannula 1 06/17/24 07:00 15 94 Room Air 06/17/24 03:33 36.5 C 60 17 125/64 94 Nasal Cannula Diagnostic Findings Abdomen/Pelvis CT 06/13/24 10:41 CT OF THE ABDOMEN AND PELVIS WITH CONTRAST CLINICAL HISTORY: trauma COMPARISON STUDY: Pelvis radiograph performed earlier today. TECHNIQUE: Following IV administration of 94 mL of Optiray, axial images of the abdomen and pelvis were obtained from the lung bases to the proximal femurs. Images were reviewed in the axial, sagittal, and coronal planes. IV contrast was administered without complication. Automated exposure control was utilized for the study. A dose lowering technique was utilized adhering to the principles of ALARA. FINDINGS: Moderate right and small left pleural effusions are present. Extensive associated bilateral lower lobe airspace opacities are present. Distal esophageal wall thickening is noted. There is body wall edema. There is also mild mesenteric edema as well as presacral fluid. Exam is mildly compromised by motion artifact. No hemoperitoneum or pneumoperitoneum is present. There is no evidence for traumatic injury to the liver, spleen, adrenal glands, kidneys or pancreas. There is a left lower pole renal cyst. There is no hydronephrosis. No biliary or pancreatic ductal dilatation is present. Prominent mucosal enhancement of the stomach and duodenum is present. There is no evidence for a bowel obstruction. The bladder is significantly distended. There are calcified fibroids. No acute fractures within the lumbar spine, pelvis or hips are identified. There are no fluid collections. IMPRESSION: 1. No acute traumatic findings within the abdomen or pelvis. Exam mildly compromised by motion artifact. 2. No acute fractures. 3. Evidence for volume overload. Body wall edema. Trace ascites within the abdomen and pelvis. 4. Distended bladder. 5. Prominent mucosal enhancement of the stomach and duodenum. This may be related to the phase of enhancement however gastritis/duodenitis could appear similar. ACT 112: Negative or not required by law. Electronically signed by: Jimi Jaramillo M.D. 06/13/2024 11:44 AM Chest X-Ray 06/13/24 10:41 XR chest 1V portable CLINICAL HISTORY: fall COMPARISON STUDY: Chest radiograph and chest CT February 04, 2021. FINDINGS: There is no pneumothorax. There is mild cardiomegaly. Interstitial thickening is noted. Bilateral perihilar prominence is symmetric. Moderate right and small left pleural effusions are present. IMPRESSION: 1. No pneumothorax. 2. Moderate right and small left pleural effusions with associated bibasilar opacities. 3. Interstitial pulmonary edema. ACT 112: Negative or not required by law. Electronically signed by: Jimi Jaramillo M.D. 06/13/2024 11:17 AM Pelvis X-Ray 06/13/24 10:41 XR pelvis 1-2V routine CLINICAL HISTORY: fall COMPARISON: Sacrum and coccyx radiographs September 10, 2013. FINDINGS: The bladder may be distended. There are no fractures within the pelvis or hips. There is mild bilateral hip osteophytosis IMPRESSION: 1. No fractures within the pelvis or hips. 2. Suspected bladder distention. ACT 112: Negative or not required by law. Electronically signed by: Jimi Jaramillo M.D. 06/13/2024 11:[address] 06/13/24 10:42 CT OF THE CERVICAL SPINE WITHOUT CONTRAST CLINICAL HISTORY: trauma COMPARISON STUDY: CTA of the neck May 10, 2022. TECHNIQUE: Helical axial images of the cervical spine were obtained without IV contrast. Sagittal and coronal reconstructions were viewed. Automated exposure control was utilized for the study. A dose lowering technique was utilized adhering to the principles of ALARA. FINDINGS: Alignment of the cervical spine is anatomic. Vertebral body heights are maintained. No acute cervical spine fracture or subluxation is present. There is no prevertebral edema. Facet joints are intact. Moderate multilevel degenerative disc disease and facet arthrosis is present. IMPRESSION: No acute cervical spine fracture or subluxation. ACT 112: Negative or not required by law. Electronically signed by: Jimi Jaramillo M.D. 06/13/2024 11:[address] 06/13/24 10:42 CT OF THE HEAD WITHOUT CONTRAST CLINICAL HISTORY: trauma COMPARISON STUDY: MRI of the brain May 22, 2017. Head CT May 10, 2022. TECHNIQUE: Helical axial images of the head were obtained without IV contrast. Automated exposure control was utilized for the study. A dose lowering technique was utilized adhering to the principles of ALARA. FINDINGS: No acute intracranial hemorrhage, midline shift or mass effect is present. White matter hypodensity suggests small vessel disease. The ventricular system is unremarkable. The basal cisterns are patent. No extra-axial collections are present. There are no findings to suggest acute dural sinus thrombosis or acute territorial infarct. There are no calvarial fractures. There are small air-fluid levels within the sphenoid sinuses. IMPRESSION: 1. No acute intracranial findings. 2. No calvarial fractures. ACT 112: Negative or not required by law. Electronically signed by: Jimi Jaramillo M.D. 06/13/2024 11:25 AM Femur X-Ray 06/13/24 10:46 XR femur LT 2V routine CLINICAL HISTORY: trauma COMPARISON: None FINDINGS: Alignment of the left hip and left knee is anatomic. There are no left femoral fractures. There are no osseous lesions. Mild left hip osteoar thritis. IMPRESSION: No left femoral fractures. ACT 112: Negative or not required by law. Electronically signed by: Jimi Jaramillo M.D. 06/13/2024 11:19 AM Femur X-Ray 06/13/24 10:46 XR femur RT 2V routine CLINICAL HISTORY: trauma COMPARISON: None FINDINGS: Alignment of the right hip and right knee is anatomic. There are no fractures within the right femur. There are no osseous lesions. There is mild right hip osteoarthritis. IMPRESSION: No right femoral fractures. ACT 112: Negative or not required by law. Electronically signed by: Jimi Jaramillo M.D. 06/13/2024 11:[address] 06/13/24 10:48 CT OF THE CHEST WITH IV CONTRAST CLINICAL HISTORY: trauma COMPARISON STUDY: Chest CT February 04, 2021. TECHNIQUE: Following IV administration of 94 mL of Optiray, helical axial images of the chest were obtained. Sagittal and coronal reconstructions were viewed as well as maximal intensity projections on an independent 3-D workstation. Automated exposure control was utilized for the study. A dose lowering technique was utilized adhering to the principles of ALARA. FINDINGS: There is no evidence for acute injury to the thoracic aorta. No mediastinal hematoma is present. There is mild cardiomegaly. No pericardial effusion is present. There is no pneumothorax. Moderate right and small left pleural effusions are present. Subpleural bilateral lower lobe airspace opacities are noted. There are moderate secretions within the lower lobe airways. No central obstructing mass is identified. No acute rib or thoracic spine fracture is identified. The abdomen and pelvis CT will be reported separately. Circumferential wall thickening of the esophagus is present. IMPRESSION: 1. No acute traumatic findings within the chest. 2. Moderate right and small left pleural effusions. Extensive associated bilateral lower lobe airspace opacities. These may reflect pneumonia or asp iration pneumonitis. Atelectasis could appear similar although pneumonia/aspiration pneumonitis is favored, particularly within the left lower lobe. 3. No pneumothorax. 4. Circumferential wall thickening of the esophagus. This may reflect esophagitis. ACT 112: Negative or not required by law. Electronically signed by: Jimi Jaramillo M.D. 06/13/2024 11:[address] 06/15/24 00:09 EXAM: CT head/brain wo con CLINICAL HISTORY: cva TECHNIQUE: Axial non-contrast CT scan of the brain was performed from the skull base to the high parietal region with coronal and sagittal reformats. One of the following dose reduction techniques were utilized for this exam: Automated exposure control, adjustment of the mA and/or kV according to patient size, use of iterative reconstruction. COMPARISON: 06/13/2024 FINDINGS: Brain Parenchyma: Normal attenuation of the cerebral hemispheres, cerebellum, and brainstem. No evidence of acute infarct, hemorrhage, or mass effect. There are mildly accentuated white matter hypodensities in both the cerebral hemispheres suggestive of mild microvascular ischemic changes. Mild age-appropriate involutional changes are seen in the brain evident by widened extra-axial CSF spaces, and slightly deepened cortical sulci. Ventricular System: Ventricles are normal in size and configuration. No evidence of hydrocephalus or ventricular enlargement. Subarachnoid Spaces: No evidence of subarachnoid hemorrhage or extra-axial fluid collections. Cerebellum and Brainstem: Normal size and signal. No masses, lesions, or areas of abnormal signal. Orbits: Normal appearance of the globes, optic nerves, and extraocular muscles. No evidence of orbital masses or abnormal signal. Sinuses: Clear paranasal sinuses. No evidence of sinusitis or mucosal thickening. Mastoid Air Cells: Clear mastoid air cells. No evidence of mastoiditis. Skull and Meninges: Normal skull morphology. IMPRESSION: 1. No acute intracranial abnormality. 2. Mild microvascular ischemic changes and mild age-appropriate involutional changes are seen in the brain. Electronically signed by Jeremías Coelho 06-15-2024 01:12 AM Head CTA 06/15/24 00:09 EXAM: CT angio head w con CLINICAL HISTORY: cva 118 cc opti 320 TECHNIQUE: Axial CT angiography of the head was done with 118cc of opitray-320mg/ml contrast and sagittal and coronal reformats with MIP reconstructions. One of these 3D techniques was utilized: Maximum Intensity Pixel (MIP), 3D Reconstructed Images, Volume Rendered Images, Surface Shaded Rendering. One of the following dose reduction techniques were utilized for this exam: Automated exposure control, adjustment of the mA and/or kV according to patient size, and use of iterative reconstruction. COMPARISON: None. FINDINGS: Intracranial Arteries: The intracranial portions of the internal carotid arteries show crescentic calcified plaques causing mild stenosis (20-25%). The anterior cerebral arteries, middle cerebral arteries, posterior cerebral arteries, basilar artery, and vertebral arteries are well-opacified. 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 Focal speck of calcification is seen in the M1 segment of the left middle cerebral artery, not causing any luminal stenosis. No evidence of aneurysm, stenosis, or occlusion. No significant atherosclerotic changes. [place]: The [place] is complete. Normal caliber of the communicating arteries. No vascular malformations or aneurysms. Venous Structures: Normal opacification of the major dural venous sinuses. No evidence of venous sinus thrombosis. Brain Parenchyma: Normal attenuation of the cerebral hemispheres, cerebellum, and brainstem. No evidence of acute infarct, hemorrhage, or mass effect. Ventricular System: Ventricles are normal in size and configuration. No evidence of hydrocephalus or ventricular enlargement. Skull and Meninges: Normal appearance of the skull. No evidence of meningeal enhancement or thickening. Orbits: Normal appearance of the globes, optic nerves, and extraocular muscles. No evidence of orbital masses or abnormal signals. IMPRESSION: 1. Normal CT angiography of the head. 2. No evidence of significant vascular abnormalities. 3. 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 4. Focal speck of calcification is seen in the M1 segment of the left middle cerebral artery, not causing any luminal stenosis. 5. Mild stenosis of both ICA segments due to calcified plaques. Electronically signed by Jeremías Coelho 06-15-2024 01:20 AM Neck CTA 06/15/24 00:09 EXAM: CT angio neck with con CLINICAL HISTORY: cva 118 cc opti 320 TECHNIQUE: CT angiography study of the neck vessels with 118cc Opitray-320mg/ml IV contrast was performed and multiple axial sections were obtained with coronal and sagittal reconstructions. xOne of the following dose reduction techniques were utilized for this exam: Automated exposure control, adjustment of the mA and/or kV according to patient size, and use of iterative reconstruction. One of these 3D techniques was utilized: Maximum Intensity Pixel (MIP), 3D Reconstructed Images, Volume Rendered Images, Surface Shaded Rendering COMPARISON: 05/09/2022. FINDINGS: Carotid Arteries: Common carotid arteries, internal carotid arteries, and external carotid arteries bilaterally are well-opacified. No evidence of significant stenosis, occlusion, or aneurysm. No significant atherosclerotic changes. Vertebral Arteries: Vertebral arteries bilaterally are well-opacified. No evidence of significant stenosis, occlusion, or aneurysm. No significant atherosclerotic changes. Jugular Veins: Normal opacification of the internal and external jugular veins bilaterally. No evidence of thrombosis or compression. Subclavian Arteries: Subclavian arteries bilaterally are well-opacified. No evidence of significant stenosis, occlusion, or aneurysm. Thyroid Gland: Normal size and morphology of the thyroid gland. No masses or nodules. Soft Tissues: Normal appearance of the surrounding soft tissues of the neck. No abnormal masses or lymphadenopathy. Cervical Spine: Normal alignment and signal intensity of the cervical vertebrae. No fractures, lytic or sclerotic lesions. Incidental note is made of moderate-volume bilateral pleural effusions with passive atelectasis. IMPRESSION: 1. Normal CT angiography of the neck. 2. No evidence of significant vascular abnormalities. Electronically signed by Jeremías Coelho 06-15-2024 01:29 AM Brain MRI 06/15/24 09:00 Exam(s): MRI HEAD W/WO Contrast IV Amt: 6cc gadavist EXAM: MR Head Without and With Intravenous Contrast CLINICAL HISTORY: Reason for exam: cva. TECHNIQUE: Magnetic resonance images of the head/brain without and with intravenous contrast in multiple planes. CONTRAST: Patient received 6cc gadavist of IV contrast COMPARISON: Head CT 06/15/2024 FINDINGS: Brain: No restricted diffusion. No intracranial hemorrhage. No mass- effect or cerebral edema. Periventricular and subcortical T2/flair hyperintensities favored to represent chronic microvascular ischemic changes. No abnormal enhancement. Some artifact on the postcontrast images. Ventricles: Unremarkable. No ventriculomegaly. Bones/joints: Unremarkable. No acute fracture. Sinuses: Unremarkable as visualized. No acute sinusitis. Mastoid air cells: Unremarkable as visualized. No mastoid effusion. Orbits: Unremarkable as visualized. IMPRESSION: No acute infarct. Electronically signed by: Khurram Alonso MD 06/15/24 23:33 PM (5) Rhabdomyolysis Rhabdomyolysis type: non-traumatic Qualified Code(s): M62.82 - Rhabdomyolysis (7) Raynauds phenomenon Raynaud?s-associated gangrene presence: without gangrene Qualified Code(s): I73.00 - Raynaud's syndrome without gangrene
[2024-06-17 11:07] LABS: Urea Nitrogen, Random Urine 920 mg/dL
[2024-06-17 18:10] LABS: Appearance Urine Clear (Clear); Bacteria Urine Automated None Seen (None Seen); Bilirubin Urine Negative (Negative); Blood Urine 2+ (Negative); Cast Urine Automated 0-2 /lpf (0-2); Color Urine Yellow; Epithelial Cell Urine Auto 0-2 /hpf (0-2); Glucose Urine UA Negative (Negative); Ketones Urine Negative (Negative); Leukocyte Esterase Urine Negative (Negative); Nitrite Urine Negative (Negative); Protein Urine Negative (Negative); RBC Urine Automated >20 /hpf (0-2); Specific Gravity Urine 1.009 (1.000-1.030); Urobilinogen Urine Negative (Negative); WBC Urine Automated 0-5 /hpf (0-5); pH Urine 5.5 (4.5-7.5)
[2024-06-18] MEDS: NIFEdipine EXTENDED REL 30 MG TABCR PO STA (00:53)
[2024-06-18 06:40] LABS: Hematocrit (blood only) 37.3 % (37.0-47.0); Hemoglobin 13.4 g/dl (12.0-16.0); Mean Corpuscular Hemoglobin 29.6 pg (25.0-34.0); Mean Corpuscular Hgb Conc 35.9 g/dL (32.0-36.0); Mean Corpuscular Volume 82.5 fL (80.0-100.0); Mean Platelet Volume 9.7 fL (9.4-12.4); Platelet Count 315 K/uL (130-400); RDW Coefficient of Variation 13.8 % (11.5-14.5); Red Blood Count 4.52 M/uL (4.20-5.40); White Blood Count 13.61 K/ul (4.8-10.8)
[2024-06-18 06:55] LABS: Albumin Globulin Ratio 1.1 (0.9-2); Albumin Level 3.1 gm/dl (3.4-5.0); Bilirubin,Total 0.6 mg/dl (0.2-1.0); Calcium 8.3 mg/dl (8.6-10.3); Creatinine Clr Calc Pharmacy 80.4 ml/min; Globulin 2.7 gm/dl (2.5-4.0); Magnesium 2.2 mg/dl (1.7-2.4); Phosphorus 2.6 mg/dl (2.5-4.9); Potassium 3.9 mmol/L (3.5-5.1); Total Protein 5.8 gm/dl (6.0-8.3)
--- NOTE | 2024-06-18 11:20 | Hospitalist Progress Note ---
Date of Service June 18, 2024 Assessment & Plan (1) Acute hypoxic respiratory failure: (2) Bilateral pleural effusion: (3) COVID-19: (4) Stroke-like symptoms: (5) Rhabdomyolysis: (6) Hyponatremia: (7) Raynauds phenomenon: (8) Venous insufficiency (chronic) (peripheral): Plan 74yoF with PMHx significant for Raynaud's, chronic vertigo, thoracic ascending aneurysm, chronic venous insufficiency with history of recurrent venous ulcers who previously followed at the wound clinic who was brought into the ED as a trauma alert. Found to be hypoxic by EMS and was placed on O2 that had to be titrated up to high flow before patient was ultimately placed on BiPAP. Acute hypoxic respiratory failure Bilateral pleural effusions COVID-19 Pneumonia Was diagnosed with COVID on 06/09 (symptoms since 06/06) and prescribed Paxlovid as an outpatient. Unclear how long patient was on the floor after her fall at home but she thinks that she may have fallen trying to get out of bed the night before. CT chest noted moderate right and small left pleural effusions and multiple airspace opacities bilaterally. Procal was normal Was on Zosyn and doxycycline IV Dexamethasone was started, continue while hospitalized IV Lasix was started for the pleural effusions--transitioned to po lasix 40mg daily per verbal recs of nephrology Weaned oxygen as tolerated Pulmonology was consulted, recommended/stated the following: "Recommendations: 1. Bilateral pleural effusions: Minimally symptomatic currently. Continue with diuresis. No indication for sampling currently. BNP elevated on presentation and procalcitonin normal. 2. Hypoxemia: Significantly improved. Down to 2 L nasal cannula at this time. No respiratory distress currently. Wean oxygen as tolerated to keep saturations at or above 88%. 3. Electrolytes and kidney function per nephrology. 4. COVID: Pleural effusions unlikely to be related to COVID. Echocardiogram showed preserved EF (60 to 65%) with normal wall motion. No evidence of significant valvular disease. 5. Out of bed to chair and ambulate in the room is much as possible. Discussed with nursing staff. They will also encourage her to utilize her incentive spirometer. 6. Suspect that the dependent areas of consolidation or compressive atelectasis. Can likely discontinue steroids once the patient is off oxygen." Improving Volume Overload Body wall edema CT abdomen pelvis noting body wall edema and suggestive of volume overload BNP 442 Echo ordered to rule out congestive heart failure as a possible cause. Noted EF of 60 to 65%, normal left ventricle, no pericardial effusion, no significant valvular disease. Diastolic dysfunction was not able to be evaluated. Treated with IV Lasix 20 mg twice daily at this time----transitioned to po lasix 40mg daily per verbal recs of nephrology Continue to monitor I's and's O's Improving Hyponatremia Na was 121 on admission, dropped to 118 and has been trending back up Serum osm 253 on admission. Uosm 618. Jayde 10 Hypervolemia Nephrology was consulted, appreciate recs. Recommended/stated the following: -fluid restriction of 1500 ml when PO allowed -lasix 20 iv q12 to continue till AM tomorrow. Stop after AM dose. - continue kcl 20 meq po bid, consider d/c once off IV Lasix 06/18/24- --transitioned to po lasix 40mg daily per verbal recs of nephrology Hypokalemia On KCl 20mEq BID while on lasix replete as needed Leukocytosis Pt with persistent leukocytosis, neutrophilia and monocytosis noted Pt with noted viral covid infection, procal negative so less likely a superimposed bacterail infection imaging as noted above UA ordered and unremarkable Continue to monitor WBC with diff with AM labs Bladder distention Imaging noting bladder distention Pt with vera in place Monitor urine output Fall Pt presented with fall at home head CT done on admission as well as femur x-ray, C-spine CT, chest x-ray, abdomen pelvis CT all without acute fractures Fall precautions PT OT recommending acute rehab Case management working on placement to [facility] Stroke-like symptoms Stroke like symptoms were reported overnight on 06/14/24. 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 Mild stenosis of both ICA segments due to calc ified plaques" MRI brain did not show any acute abnormalities Echo with findings as noted above, no mention of shunt PT OT recommending acute rehab Neurology was consulted, appreciate recs. Recommended or stated the following: "generalized weakness in a 74F with an active COVID infection. ON exam she is weak but it is non-focal. MRI shows no evidence of an acute stroke. I suspect that her weakness is secondary to her general medical condition and is not primarily neurologic. no further neurologic work up" Currently stable Rhabdomyolysis Unclear how long patient was down at home CK in the ED elevated at 2446, downtrending Creatinine normal Received ~800 ml of fluid in the ED Currently normal at 76 on last check Stable Raynauds phenomenon Chronic, stable Continue nifedipine Venous insufficiency (chronic) (peripheral) Chronic, stable Diet: HH, FR 1200ml, easy to chew Code status: full code DVT prophylaxis: Lovenox Dispo: anticipate d/c to [facility], awaiting peer to peer by 4pm on Sat06/19/24, [facility] Latricia is backup Admission and Anticipated Discharge Date Admission Date: June 13, 2024 Subjective Patient was seen in the a.m. Eating breakfast Otherwise denied acute concerns discussion with nephrology outside patient's room, noted can transition to p.o. Lasix 40 mg daily Review of Systems Review of Systems: All systems reviewed & are unremarkable except as noted in Subjective Physical Exam Physical Exam: General: Alertx3, oriented. No acute distress Psych: Appropriate mood and affect Neuro: Slow/halting speech, AAOx3 HEENT: NC/AT CV: RRR Resp: Breath sounds clear bilaterally, no increased effort of breathing Abdomen:Soft, nontender Extremities: No edema in lower extremities bilaterally. Results & Data Results & Data Vital Signs (Past 12 Hours) Vital Signs Temp Pulse Pulse Resp BP Pulse Ox O2 Del Method 06/18/24 10:01 Room Air 06/18/24 08:00 36.9 C 65 18 119/69 92 Room Air 06/18/24 03:39 36.6 C 59 L 18 137/86 95 Room Air 06/18/24 01:30 60 06/18/24 00:24 160/85 H Diagnostic Findings Abdomen/Pelvis CT 06/13/24 10:41 CT OF THE ABDOMEN AND PELVIS WITH CONTRAST CLINICAL HISTORY: trauma COMPARISON STUDY: Pelvis radiograph performed earlier today. TECHNIQUE: Following IV administration of 94 mL of Optiray, axial images of the abdomen and pelvis were obtained from the lung bases to the proximal femurs. Images were reviewed in the axial, sagittal, and coronal planes. IV contrast was administered without complication. Automated exposure control was utilized for the study. A dose lowering technique was utilized adhering to the principles of ALARA. FINDINGS: Moderate right and small left pleural effusions are present. Extensive associated bilateral lower lobe airspace opacities are present. Distal esophageal wall thickening is noted. There is body wall edema. There is also mild mesenteric edema as well as presacral fluid. Exam is mildly compromised by motion artifact. No hemoperitoneum or pneumoperitoneum is present. There is no evidence for traumatic injury to the liver, spleen, adrenal glands, kidneys or pancreas. There is a left lower pole renal cyst. There is no hydronephrosis. No biliary or pancreatic ductal dilatation is present. Prominent mucosal enhancement of the stomach and duodenum is present. There is no evidence for a bowel obstruction. The bladder is significantly distended. There are calcified fibroids. No acute fractures within the lumbar spine, pelvis or hips are identified. There are no fluid collections. IMPRESSION: 1. No acute traumatic findings within the abdomen or pelvis. Exam mildly compromised by motion artifact. 2. No acute fractures. 3. Evidence for volume overload. Body wall edema. Trace ascites within the abdomen and pelvis. 4. Distended bladder. 5. Prominent mucosal enhancement of the stomach and duodenum. This may be related to the phase of enhancement however gastritis/duodenitis could appear similar. ACT 112: Negative or not required by law. Electronically signed by: Jimi Jaramillo M.D. 06/13/2024 11:44 AM Chest X-Ray 06/13/24 10:41 XR chest 1V portable CLINICAL HISTORY: fall COMPARISON STUDY: Chest radiograph and chest CT February 04, 2021. FINDINGS: There is no pneumothorax. There is mild cardiomegaly. Interstitial thickening is noted. Bilateral perihilar prominence is symmetric. Moderate right and small left pleural effusions are present. IMPRESSION: 1. No pneumothorax. 2. Moderate right and small left pleural effusions with associated bibasilar opacities. 3. Interstitial pulmonary edema. ACT 112: Negative or not required by law. Electronically signed by: Jimi Jaramillo M.D. 06/13/2024 11:17 AM Pelvis X-Ray 06/13/24 10:41 XR pelvis 1-2V routine CLINICAL HISTORY: fall COMPARISON: Sacrum and coccyx radiographs September 10, 2013. FINDINGS: The bladder may be distended. There are no fractures within the pelvis or hips. There is mild bilateral hip osteophytosis IMPRESSION: 1. No fractures within the pelvis or hips. 2. Suspected bladder distention. ACT 112: Negative or not required by law. Electronically signed by: Jimi Jaramillo M.D. 06/13/2024 11:[address] 06/13/24 10:42 CT OF THE CERVICAL SPINE WITHOUT CONTRAST CLINICAL HISTORY: trauma COMPARISON STUDY: CTA of the neck May 10, 2022. TECHNIQUE: Helical axial images of the cervical spine were obtained without IV contrast. Sagittal and coronal reconstructions were viewed. Automated exposure control was utilized for the study. A dose lowering technique was utilized adhering to the principles of ALARA. FINDINGS: Alignment of the cervical spine is anatomic. Vertebral body heights are maintained. No acute cervical spine fracture or subluxation is present. There is no prevertebral edema. Facet joints are intact. Moderate multilevel degenerative disc disease and facet arthrosis is present. IMPRESSION: No acute cervical spine fracture or subluxation. ACT 112: Negative or not required by law. Electronically signed by: Jimi Jaramillo M.D. 06/13/2024 11:[address] 06/13/24 10:42 CT OF THE HEAD WITHOUT CONTRAST CLINICAL HISTORY: trauma COMPARISON STUDY: MRI of the brain May 22, 2017. Head CT May 10, 2022. TECHNIQUE: Helical axial images of the head were obtained without IV contrast. Automated exposure control was utilized for the study. A dose lowering technique was utilized adhering to the principles of ALARA. FINDINGS: No acute intracranial hemorrhage, midline shift or mass effect is present. White matter hypodensity suggests small vessel disease. The ventricular system is unremarkable. The basal cisterns are patent. No extra-axial collections are present. There are no findings to suggest acute dural sinus thrombosis or acute territorial infarct. There are no calvarial fractures. There are small air-fluid levels within the sphenoid sinuses. IMPRESSION: 1. No acute intracranial findings. 2. No calvarial fractures. ACT 112: Negative or not required by law. Electronically signed by: Jimi Jaramillo M.D. 06/13/2024 11:25 AM Femur X-Ray 06/13/24 10:46 XR femur LT 2V routine CLINICAL HISTORY: trauma COMPARISON: None FINDINGS: Alignment of the left hip and left knee is anatomic. There are no left femoral fractures. There are no osseous lesions. Mild left hip osteoarthritis. IMPRESSION: No left femoral fractures. ACT 112: Negative or not required by law. Electronically signed by: Jimi Jaramillo M.D. 06/13/2024 11:19 AM Femur X-Ray 06/13/24 10:46 XR femur RT 2V routine CLINICAL HISTORY: trauma COMPARISON: None FINDINGS: Alignment of the right hip and right knee is anatomic. There are no fractures within the right femur. There are no osseous lesions. There is mild right hip osteoarthritis. IMPRESSION: No right femoral fractures. ACT 112: Negative or not required by law. Electronically signed by: Jimi Jaramillo M.D. 06/13/2024 11:[address] 06/13/24 10:48 CT OF THE CHEST WITH IV CONTRAST CLINICAL HISTORY: trauma COMPARISON STUDY: Chest CT February 04, 2021. TECHNIQUE: Following IV administration of 94 mL of Optiray, helical axial images of the chest were obtained. Sagittal and coronal reconstructions were viewed as well as maximal intensity projections on an independent 3-D workstation. Automated exposure control was utilized for the study. A dose lowering technique was utilized adhering to the principles of ALARA. FINDINGS: There is no evidence for acute injury to the thoracic aorta. No mediastinal hematoma is present. There is mild cardiomegaly. No pericardial effusion is present. There is no pneumothorax. Moderate right and small left pleural effusions are present. Subpleural bilateral lower lobe airspace opacities are noted. There are moderate secretions within the lower lobe airways. No central obstructing mass is identified. No acute rib or thoracic spine fracture is identified. The abdomen and pelvis CT will be reported separately. Circumferential wall thickening of the esophagus is present. IMPRESSION: 1. No acute traumatic findings within the chest. 2. Moderate right and small left pleural effusions. Extensive associated bilateral lower lobe airspace opacities. These may reflect pneumonia or aspiration pneumonitis. Atelectasis could appear similar although pneumonia/aspiration pneumonitis is favored, particularly within the left lower lobe. 3. No pneumothorax. 4. Circumferential wall thickening of the esophagus. This may reflect esophagitis. ACT 112: Negative or not required by law. Electronically signed by: Jimi Jaramillo M.D. 06/13/2024 11:[address] 06/15/24 00:09 EXAM: CT head/brain wo con CLINICAL HISTORY: cva TECHNIQUE: Axial non-contrast CT scan of the brain was performed from the skull base to the high parietal region with coronal and sagittal reformats. One of the following dose reduction techniques were utilized for this exam: Automated exposure control, adjustment of the mA and/or kV according to patient size, use of iterative reconstruction. COMPARISON: 06/13/2024 FINDINGS: Brain Parenchyma: Normal attenuation of the cerebral hemispheres, cerebellum, and brainstem. No evidence of acute infarct, hemorrhage, or mass effect. There are mildly accentuated white matter hypodensities in both the cerebral hemispheres suggestive of mild microvascular ischemic changes. Mild age-appropriate involutional changes are seen in the brain evident by widened extra-axial CSF spaces, and slightly deepened cortical sulci. Ventricular System: Ventricles are normal in size and configuration. No evidence of hydrocephalus or ventricular enlargement. Subarachnoid Spaces: No evidence of subarachnoid hemorrhage or extra-axial fluid collections. Cerebellum and Brainstem: Normal size and signal. No masses, lesions, or areas of abnormal signal. Orbits: Normal appearance of the globes, optic nerves, and extraocular muscles. No evidence of orbital masses or abnormal signal. Sinuses: Clear paranasal sinuses. No evidence of sinusitis or mucosal thickening. Mastoid Air Cells: Clear mastoid air cells. No evidence of mastoiditis. Skull and Meninges: Normal skull morphology. IMPRESSION: 1. No acute intracranial abnormality. 2. Mild microvascular ischemic changes and mild age-appropriate involutional changes are seen in the brain. Electronically signed by Jeremías Coelho 06-15-2024 01:12 AM Head CTA 06/15/24 00:09 EXAM: CT angio head w con CLINICAL HISTORY: cva 118 cc opti 320 TECHNIQUE: Axial CT angiography of the head was done with 118cc of opitray-320mg/ml contrast and sagittal and coronal reformats with MIP reconstructions. One of these 3D techniques was utilized: Maximum Intensity Pixel (MIP), 3D Reconstructed Images, Volume Rendered Images, Surface Shaded Rendering. One of the following dose reduction techniques were utilized for this exam: Automated exposure control, adjustment of the mA and/or kV according to patient size, and use of iterative reconstruction. COMPARISON: None. FINDINGS: Intracranial Arteries: The intracranial portions of the internal carotid arteries show crescentic calcified plaques causing mild stenosis (20-25%). The anterior cerebral arteries, middle cerebral arteries, posterior cerebral arteries, basilar artery, and vertebral arteries are well-opacified. 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 Focal speck of calcification is seen in the M1 segment of the left middle cerebral artery, not causing any luminal stenosis. No evidence of aneurysm, stenosis, or occlusion. No significant atherosclerotic changes. [place]: The [place] is complete. Normal caliber of the communicating arteries. No vascular malformations or aneurysms. Venous Structures: Normal opacification of the major dural venous sinuses. No evidence of venous sinus thrombosis. Brain Parenchyma: Normal attenuation of the cerebral hemispheres, cerebellum, and brainstem. No evidence of acute infarct, hemorrhage, or mass effect. Ventricular System: Ventricles are normal in size and configuration. No evidence of hydrocephalus or ventricular enlargement. Skull and Meninges: Normal appearance of the skull. No evidence of meningeal enhancement or thickening. Orbits: Normal appearance of the globes, optic nerves, and extraocular muscles. No evidence of orbital masses or abnormal signals. IMPRESSION: 1. Normal CT angiography of the head. 2. No evidence of significant vascular abnormalities. 3. 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 4. Focal speck of calcification is seen in the M1 segment of the left middle cerebral artery, not causing any luminal stenosis. 5. Mild stenosis of both ICA segments due to calcified plaques. Electronically signed by Jeremías Coelho 06-15-2024 01:20 AM Neck CTA 06/15/24 00:09 EXAM: CT angio neck with con CLINICAL HISTORY: cva 118 cc opti 320 TECHNIQUE: CT angiography study of the neck vessels with 118cc Opitray-320mg/ml IV contrast was performed and multiple axial sections were obtained with coronal and sagittal reconstructions. xOne of the following dose reduction techniques were utilized for this exam: Automated exposure control, adjustment of the mA and/or kV according to patient size, and use of iterative reconstruction. One of these 3D techniques was utilized: Maximum Intensity Pixel (MIP), 3D Reconstructed Images, Volume Rendered Images, Surface Shaded Rendering COMPARISON: 05/09/2022. FINDINGS: Carotid Arteries: Common carotid arteries, internal carotid arteries, and external carotid arteries bilaterally are well-opacified. No evidence of significant stenosis, occlusion, or aneurysm. No significant atherosclerotic changes. Vertebral Arteries: Vertebral arteries bilaterally are well-opacified. No evidence of significant stenosis, occlusion, or aneurysm. No significant atherosclerotic changes. Jugular Veins: Normal opacification of the internal and external jugular veins bilaterally. No evidence of thrombosis or compression. Subclavian Arteries: Subclavian arteries bilaterally are well-opacified. No evidence of significant stenosis, occlusion, or aneurysm. Thyroid Gland: Normal size and morphology of the thyroid gland. No masses or nodules. Soft Tissues: Normal appearance of the surrounding soft tissues of the neck. No abnormal masses or lymphadenopathy. Cervical Spine: Normal alignment and signal intensity of the cervical vertebrae. No fractures, lytic or sclerotic lesions. Incidental note is made of moderate-volume bilateral pleural effusions with passive atelectasis. IMPRESSION: 1. Normal CT angiography of the neck. 2. No evidence of significant vascular abnormalities. Electronically signed by Jeremías Coelho 06-15-2024 01:29 AM Brain MRI 06/15/24 09:00 Exam(s): MRI HEAD W/WO Contrast IV Amt: 6cc gadavist EXAM: MR Head Without and With Intravenous Contrast CLINICAL HISTORY: Reason for exam: cva. TECHNIQUE: Magnetic resonance images of the head/brain without and with intravenous contrast in multiple planes. CONTRAST: Patient received 6cc gadavist of IV contrast COMPARISON: Head CT 06/15/2024 FINDINGS: Brain: No restricted diffusion. No intracranial hemorrhage. No mass- effect or cerebral edema. Periventricular and subcortical T2/flair hyperintensities favored to represent chronic microvascular ischemic changes. No abnormal enhancement. Some artifact on the postcontrast images. Ventricles: Unremarkable. No ventriculomegaly. Bones/joints: Unremarkable. No acute fracture. Sinuses: Unremarkable as visualized. No acute sinusitis. Mastoid air cells: Unremarkable as visualized. No mastoid effusion. Orbits: Unremarkable as visualized. IMPRESSION: No acute infarct. Electronically signed by: Khurram Alonso MD 06/15/24 23:33 PM (5) Rhabdomyolysis Rhabdomyolysis type: non-traumatic Qualified Code(s): M62.82 - Rhabdomyolysis (7) Raynauds phenomenon Raynaud?s-associated gangrene presence: without gangrene Qualified Code(s): I73.00 - Raynaud's syndrome without gangrene
--- NOTE | 2024-06-18 12:52 | Nephrology Progress Note ---
Date of Service June 18, 2024 Assessment & Plan (1) Hyponatremia: Plan: Na was 121 on admission but improved to 138 today Serum osm 253 on admission. Uosm 618. Jayde 10, likely 2/ fluid overload we can stop IV Lasix. Will change to p.o. Lasix 40 mg daily. From renal standpoint patient can be discharged on Lasix 40 mg daily. (2) Acute hypoxic respiratory failure: Plan: CT chest noted moderate right and small left pleural effusion. B/L lower lobe opacities vs atelectasis Continue antibiotics per primary team. Will give Lasix 40 mg daily as above. Respiratory status is improving. Admission and Anticipated Discharge Date Admission Date: June 13, 2024 Subjective seen for acute kidney injury and hyponatremia. She feels better today. She remains weak. No shortness of breath. She is making urine and was net -1 L. Review of Systems 2 Review of Systems: All other systems were reviewed and negative except as noted in HPI Physical Exam 2 Physical Exam: General exam: Appears comfortable, no acute distress HEENT: Pupils are equal and reactive to light Neck: No JVD, neck is supple trachea is midline Respiratory system: Clear breath sounds bilaterally. Gastrointestinal: Abdomen is soft, non distended, non tender, bowel sounds are present CVS: Regular rate and rhythm. No murmurs, rubs or gallops Musculoskeletal: No joint or muscle tenderness Extremities: Non tender, no edema, peripheral pulses are present Neuro: Oriented, no tremors, no focal neurological deficits Skin: No rashes Results & Data Vital Signs (Past 12 Hours) Vital Signs Temp Pulse Pulse Resp BP Pulse Ox O2 Del Method 06/18/24 10:01 Room Air 06/18/24 08:00 36.9 C 65 18 119/69 92 Room Air 06/18/24 03:39 36.6 C 59 L 18 137/86 95 Room Air 06/18/24 01:30 60 Laboratory Results 06/18/24 06:05 06/18/24 06:05 WBC 13.61 H RBC 4.52 MCV 82.5 MCH 29.6 MCHC 35.9 RDW Std Deviation 41.0 RDW Coeff of Grecia 13.8 Plt Count 315 MPV 9.7 Phosphorus 2.6 Albumin 3.1 L
[2024-06-18] MEDS: FUROSEMIDE 40 MG TAB PO SCH (13:47)
[2024-06-19 07:17] LABS: Hematocrit (blood only) 40.4 % (37.0-47.0); Hemoglobin 14.2 g/dl (12.0-16.0); Mean Corpuscular Hemoglobin 29.4 pg (25.0-34.0); Mean Corpuscular Hgb Conc 35.1 g/dL (32.0-36.0); Mean Corpuscular Volume 83.6 fL (80.0-100.0); Mean Platelet Volume 10.6 fL (9.4-12.4); Platelet Count 288 K/uL (130-400); RDW Coefficient of Variation 13.8 % (11.5-14.5); RDW Standard Deviation 42.2 fL (36.4-46.3); Red Blood Count 4.83 M/uL (4.20-5.40); White Blood Count 12.62 K/ul (4.8-10.8)
[2024-06-19 07:30] LABS: Albumin Globulin Ratio 1.2 (0.9-2); Bilirubin,Total 0.6 mg/dl (0.2-1.0); Calcium 8.1 mg/dl (8.6-10.3); Creatinine Clr Calc Pharmacy 80.4 ml/min; Globulin 2.6 gm/dl (2.5-4.0); Magnesium 2.2 mg/dl (1.7-2.4); Phosphorus 3.1 mg/dl (2.5-4.9); Potassium 3.6 mmol/L (3.5-5.1); Total Protein 5.6 gm/dl (6.0-8.3)
[2024-06-19] MEDS: NIFEdipine EXTENDED REL 30 MG TABCR PO SCH (09:07)
[2024-06-19] MEDS: POTASSIUM CHLORIDE CRTAB 20 MEQ TABCR PO SCH (10:55)
--- NOTE | 2024-06-19 14:08 | Nephrology Progress Note ---
Date of Service June 19, 2024 Assessment & Plan (1) Hyponatremia: Plan: Na was 121 on admission but improved to 138 today Serum osm 253 on admission. Uosm 618. Jayde 10, likely 2/ fluid overload Will continue p.o. Lasix 40 mg daily. From renal standpoint patient can be discharged on Lasix 40 mg daily. - renal will sign off case. Please call if additional questions or concerns. (2) Acute hypoxic respiratory failure: Plan: CT chest noted moderate right and small left pleural effusion. B/L lower lobe opacities vs atelectasis Continue antibiotics per primary team. Will give Lasix 40 mg daily as above. Respiratory status is improving. Admission and Anticipated Discharge Date Admission Date: June 13, 2024 Subjective seen for acute kidney injury and hyponatremia. She feels better today. She remains weak. No shortness of breath. She is making urine and was net -2 L. Review of Systems 2 Review of Systems: All other systems were reviewed and negative except as noted in HPI Physical Exam 2 Physical Exam: General exam: Appears comfortable, no acute distress HEENT: Pupils are equal and reactive to light Neck: No JVD, neck is supple trachea is midline Respiratory system: Clear breath sounds bilaterally. Gastrointestinal: Abdomen is soft, non distended, non tender, bowel sounds are present CVS: Regular rate and rhythm. No murmurs, rubs or gallops Musculoskeletal: No joint or muscle tenderness Extremities: Non tender, no edema, peripheral pulses are present Neuro: Oriented, no tremors, no focal neurological deficits Skin: No rashes Results & Data Vital Signs (Past 12 Hours) Vital Signs Temp Pulse Pulse Resp BP BP Pulse Ox 06/19/24 13:36 83 06/19/24 11:51 06/19/24 10:58 36.4 C L 58 L 18 130/74 93 06/19/24 08:20 36.9 C 62 18 129/78 92 06/19/24 03:35 36.5 C 54 L 15 151/80 H 93 O2 Del Method O2 Del Method 06/19/24 13:36 06/19/24 11:51 Room Air 06/19/24 10:58 Room Air 06/19/24 08:20 Room Air 06/19/24 03:35 Room Air Laboratory Results 06/19/24 06:11 06/19/24 06:11 WBC 12.62 H RBC 4.83 MCV 83.6 MCH 29.4 MCHC 35.1 RDW Std Deviation 42.2 RDW Coeff of Grecia 13.8 Plt Count 288 MPV 10.6 Phosphorus 3.1 Albumin 3.0 L
[2024-06-19] MEDS: MELATONIN 3 MG TAB PO PRN (20:15)
[2024-06-20 06:20] LABS: Hematocrit (blood only) 40.4 % (37.0-47.0); Hemoglobin 14.1 g/dl (12.0-16.0); Mean Corpuscular Hemoglobin 29.1 pg (25.0-34.0); Mean Corpuscular Hgb Conc 34.9 g/dL (32.0-36.0); Mean Corpuscular Volume 83.3 fL (80.0-100.0); Mean Platelet Volume 9.4 fL (9.4-12.4); Platelet Count 353 K/uL (130-400); RDW Standard Deviation 42.2 fL (36.4-46.3); Red Blood Count 4.85 M/uL (4.20-5.40); White Blood Count 12.39 K/ul (4.8-10.8)
[2024-06-20 06:41] LABS: Albumin Globulin Ratio 1.1 (0.9-2); Albumin Level 3.1 gm/dl (3.4-5.0); BUN Creatinine Ratio 47.9 (10-20); Bilirubin,Total 0.8 mg/dl (0.2-1.0); Calcium 8.3 mg/dl (8.6-10.3); Creatinine Clr Calc Pharmacy 83.8 ml/min; Globulin 2.7 gm/dl (2.5-4.0); Magnesium 2.2 mg/dl (1.7-2.4); Phosphorus 3.3 mg/dl (2.5-4.9); Potassium 4.1 mmol/L (3.5-5.1); Total Protein 5.8 gm/dl (6.0-8.3)
[2024-06-20 07:22] LABS: Anti Cardiolipin Ab IgG <2.0 GPL-U/mL (<20.0); Anti Cardiolipin Ab IgM <2.0 MPL-U/mL (<20.0); B2 Glycoprotein IgA <2.0 U/mL (<20.0); B2 Glycoprotein IgG <2.0 U/mL (<20.0); B2 Glycoprotein IgM <2.0 U/mL (<20.0); Phosphatidylser Prothrom IgG <9 U (<=30); Phosphatidylserine ProthromIgM 13 U (<=30)
--- NOTE | 2024-06-20 14:57 | Hospitalist Progress Note ---
Date of Service June 20, 2024 Assessment & Plan (1) Acute hypoxic respiratory failure: (2) Bilateral pleural effusion: (3) COVID-19: (4) Stroke-like symptoms: (5) Rhabdomyolysis: (6) Hyponatremia: (7) Raynauds phenomenon: (8) Venous insufficiency (chronic) (peripheral): Plan 74yoF with PMHx significant for Raynaud's, chronic vertigo, thoracic ascending aneurysm, chronic venous insufficiency with history of recurrent venous ulcers who previously followed at the wound clinic who was brought into the ED as a trauma alert. Found to be hypoxic by EMS and was placed on O2 that had to be titrated up to high flow before patient was ultimately placed on BiPAP. Pt stable for discharge and currently awaiting placement Acute hypoxic respiratory failure Bilateral pleural effusions COVID-19 Pneumonia Was diagnosed with COVID on 06/09 (symptoms since 06/06) and prescribed Paxlovid as an outpatient. Unclear how long patient was on the floor after her fall at home but she thinks that she may have fallen trying to get out of bed the night before. CT chest noted moderate right and small left pleural effusions and multiple airspace opacities bilaterally. Procal was normal Was on Zosyn and doxycycline IV Dexamethasone was started, continue while hospitalized IV Lasix was started for the pleural effusions--transitioned to po lasix 40mg daily per verbal recs of nephrology Weaned oxygen as tolerated Pulmonology was consulted, recommended/stated the following: "Recommendations: 1. Bilateral pleural effusions: Minimally symptomatic currently. Continue with diuresis. No indication for sampling currently. BNP elevated on presentation and procalcitonin normal. 2. Hypoxemia: Significantly improved. Down to 2 L nasal cannula at this time. No respiratory distress currently. Wean oxygen as tolerated to keep saturations at or above 88%. 3. Electrolytes and kidney function per nephrology. 4. COVID: Pleural effusions unlikely to be related to COVID. Echocardiogram showed preserved EF (60 to 65%) with normal wall motion. No evidence of significant valvular disease. 5. Out of bed to chair and ambulate in the room is much as possible. Discussed with nursing staff. They will also encourage her to utilize her incentive spirometer. 6. Suspect that the dependent areas of consolidation or compressive atelectasis. Can likely discontinue steroids once the patient is off oxygen." Improved Volume Overload Body wall edema CT abdomen pelvis noting body wall edema and suggestive of volume overload BNP 442 Echo ordered to rule out congestive heart failure as a possible cause. Noted EF of 60 to 65%, normal left ventricle, no pericardial effusion, no significant valvular disease. Diastolic dysfunction was not able to be evaluated. Treated with IV Lasix 20 mg twice daily at this time----transitioned to po lasix 40mg daily per verbal recs of nephrology Continue to monitor I's and's O's Improving Hyponatremia Na was 121 on admission, dropped to 118 and has been trending back up Serum osm 253 on admission. Uosm 618. Jayde 10 Hypervolemia Nephrology was consulted, appreciate recs. Recommended/stated the following: -fluid restriction of 1500 ml when PO allowed -lasix 20 iv q12 to continue till AM tomorrow. Stop after AM dose. - continue kcl 20 meq po bid, consider d/c once off IV Lasix 06/18/24- --transitioned to po lasix 40mg daily per verbal recs of nephrology Hypokalemia On KCl 20mEq BID while on lasix replete as needed Leukocytosis Pt with persistent leukocytosis, neutrophilia and monocytosis noted Pt with noted viral covid infection, procal negative so less likely a superimposed bacterial infection imaging as noted above UA ordered and unremarkable Continue to monitor WBC with diff with AM labs Bladder distention Imaging noting bladder distention Pt with vera in place Monitor urine output Fall Pt presented with fall at home head CT done on admission as well as femur x-ray, C-spine CT, chest x-ray, abdomen pelvis CT all without acute fractures Fall precautions PT OT recommending acute rehab Case management working on placement to [facility] Stroke-like symptoms Stroke like symptoms were reported overnight on 06/14/24. 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 Mild stenosis of both ICA segments due to calcified plaques" MRI brain did not show any acute abnormalities Echo with findings as noted above, no mention of shunt PT OT recommending acute rehab Neurology was consulted, appreciate recs. Recommended or stated the following: "generalized weakness in a 74F with an active COVID infection. ON exam she is weak but it is non-focal. MRI shows no evidence of an acute stroke. I suspect that her weakness is secondary to her general medical condition and is not primarily neurologic. no further neurologic work up" Currently stable Rhabdomyolysis Unclear how long patient was down at home CK in the ED elevated at 2446, downtrending Creatinine normal Received ~800 ml of fluid in the ED Currently normal at 76 on last check Stable Raynauds phenomenon Chronic, stable Continue nifedipine Venous insufficiency (chronic) (peripheral) Chronic, stable Diet: HH, FR 1200ml, easy to chew Code status: full code DVT prophylaxis: Lovenox Dispo: awaiting d/c to SNF, peer to peer denial for acute rehab upheld but SNF approved Admission and Anticipated Discharge Date Admission Date: June 13, 2024 Subjective patient was seen laying in bed in the a.m. Pleasantly confused Currently awaiting placement Review of Systems Review of Systems: All systems reviewed & are unremarkable except as noted in Subjective Physical Exam Physical Exam: General: Alertx3, oriented. No acute distress Psych: Appropriate mood and affect Neuro: Slow/halting speech, AAOx3 HEENT: NC/AT CV: RRR Resp: Breath sounds clear bilaterally, no increased effort of breathing Abdomen:Soft, nontender Extremities: No edema in lower extremities bilaterally. Results & Data Results & Data Vital Signs (Past 12 Hours) Vital Signs Temp Pulse Resp BP Pulse Ox O2 Del Method 06/20/24 08:01 36.8 C 62 16 114/69 92 Room Air (5) Rhabdomyolysis Rhabdomyolysis type: non-traumatic Qualified Code(s): M62.82 - Rhabdomyolysis (7) Raynauds phenomenon Raynaud?s-associated gangrene presence: without gangrene Qualified Code(s): I73.00 - Raynaud's syndrome without gangrene
[2024-06-20] MEDS ORDERED: BENZOCAINE 20% (ORAJEL) 11.9 GM TUBE MT PRN (23:01)
--- NOTE | 2024-06-20 23:02 | Communication Note ---
Date of Service: June 20, 2024 Patient refusing to take pills as per RN for mouth pain. "tongue and left side of her outer lip appear to have sores that are white and blistered" as per RN. No fever, no chills. PPE Limited mouth opening Grayish-white film coating tongue Some erythema over left corner AP Oral thrush Cheilitis IV Diflucan 1 dose followed by oral fluconazole course Topical antifungal for cheilitis
[2024-06-20] MEDS: ACETAMINOPHEN 1,000 MG/100 ML VIAL IV STA (23:19)
[2024-06-20] MEDS: FLUCONAZOLE 200 MG/100 ML BAG IV ONE (23:42)
[2024-06-20] MEDS: CLOTRIMAZOLE 1% CR 15 GM TUBE EXT SCH (23:45)
[2024-06-21 05:46] LABS: Hematocrit (blood only) 41.6 % (37.0-47.0); Hemoglobin 14.5 g/dl (12.0-16.0); Mean Corpuscular Hemoglobin 29.2 pg (25.0-34.0); Mean Corpuscular Hgb Conc 34.9 g/dL (32.0-36.0); Mean Corpuscular Volume 83.9 fL (80.0-100.0); Platelet Count 282 K/uL (130-400); RDW Coefficient of Variation 14.1 % (11.5-14.5); RDW Standard Deviation 42.7 fL (36.4-46.3); Red Blood Count 4.96 M/uL (4.20-5.40); White Blood Count 10.23 K/ul (4.8-10.8)
[2024-06-21 05:58] LABS: BUN Creatinine Ratio 46.8 (10-20); Calcium 8.4 mg/dl (8.6-10.3); Creatinine Clr Calc Pharmacy 85.6 ml/min; Magnesium 2.3 mg/dl (1.7-2.4); Phosphorus 3.1 mg/dl (2.5-4.9); Potassium 3.5 mmol/L (3.5-5.1)
--- NOTE | 2024-06-21 10:33 | Hospitalist Progress Note ---
Date of Service June 21, 2024 Assessment & Plan (1) Acute hypoxic respiratory failure: (2) Bilateral pleural effusion: (3) COVID-19: (4) Stroke-like symptoms: (5) Rhabdomyolysis: (6) Hyponatremia: (7) Raynauds phenomenon: (8) Venous insufficiency (chronic) (peripheral): Plan 74yoF with PMHx significant for Raynaud's, chronic vertigo, thoracic ascending aneurysm, chronic venous insufficiency with history of recurrent venous ulcers who previously followed at the wound clinic who was brought into the ED as a trauma alert. Found to be hypoxic by EMS and was placed on O2 that had to be titrated up to high flow before patient was ultimately placed on BiPAP. Acute hypoxic respiratory failureresolved Bilateral pleural effusions COVID-19 Pneumonia Originally diagnosed with COVID on 06/09 with symptoms since 06/06 Prescribed Paxlovid outpatientCT chest with L pleural effusions & B/L opacities Echo showed EF 60-65% with no evidence of CHF, diastolic dysfunction was not able to be evaluated Completed Zosyn and Doxy, IV Lasix was transitioned to p.o. Lasixstrict I&O Was on IV dexamethasone for 7 days, will DC on 06/21, hypoxia resolved Oral thrush: Likely secondary to IV antibiotics and steroids, now both DC'd Started on p.o. Diflucan on 06/21, received IV dose x 1 on 06/20 Start nystatin p.o. 4 times daily Hyponatremia resolved Hypokalemia Sodium 121 on admission, dropped to 118 and now within normal limits Continue fluid restriction of 1500 mL, continue p.o. Lasix Replete as needed and while on Lasix Acute urinary retention: Vigil catheter in place, strict I&O Can consider voiding trial once mobility improves Mechanical fall Traumatic workup negative, PT/OT, SNF on DC Stroke-like symptomsCVA ruled out MRI brain negative, CTA head/neck without any acute findings Per neuro, no further neurological workup necessary at this time Raynauds phenomenon Chronic, stable Continue nifedipine Venous insufficiency (chronic) (peripheral) Chronic, stable Rhabdomyolysis- resolved Leukocytosisresolved Code status: full code DVT prophylaxis: Lovenox Dispo: awaiting d/c to SNF, peer to peer denial for acute rehab upheld but SNF approved A total of 45 minutes was spent on chart review/reviewing diagnostic data/discussion with consultants/facilitating plan of care Admission and Anticipated Discharge Date Admission Date: June 13, 2024 Subjective Patient seen and examined. No apparent distress. Reports some soreness of her tongue. She was started on treatment for oral thrush last night 06/20. She denies any other complaints. Denies any shortness of breath or chest pain Review of Systems Review of Systems: All systems reviewed & are unremarkable except as noted in HPI & below Physical Exam Constitutional: WD/WN, vitals as above ENMT: external ear and nose normal, oropharynx normal (Tongue with redness and white coating consistent with thrush) Neck: trachea midline, no thyromegaly Respiratory: normal respiratory effort, lungs clear to auscultation Cardiovascular: RRR, no murmur, no edema Gastrointestinal (Abdomen): normal bowel sounds, soft, nontender, no hepatosplenomegaly Musculoskeletal: no cyanosis or clubbing, extremities motor strength 5/5 Neurologic: PERRL, EOMI, accommodation nl, no face palsy, no dysarthria Psychiatric: A+Ox3, euthymic affect Lymphatic: no cervical or axillary lymphadenopathy Results & Data Results & Data Vital Signs (Past 12 Hours) Vital Signs Temp Pulse Resp BP Pulse Ox O2 Del Method 06/21/24 07:10 36.9 C 62 14 113/71 94 Room Air Diagnostic Findings Laboratory Results WBC 10.23 K/ul (4.8-10.8) 06/21/24 04:57 RBC 4.96 M/uL (4.20-5.40) 06/21/24 04:57 Hgb 14.5 g/dl (12.0-16.0) 06/21/24 04:57 POC Hgb 16.0 g/dl (12.0-16.0) 06/13/24 10:46 Hct 41.6 % (37.0-47.0) 06/21/24 04:57 POC Hct 47 % (37-47) 06/13/24 10:46 MCV 83.9 fL (80.0-100.0) 06/21/24 04:57 MCH 29.2 pg (25.0-34.0) 06/21/24 04:57 MCHC 34.9 g/dL (32.0-36.0) 06/21/24 04:57 RDW Std Deviation 42.7 fL (36.4-46.3) 06/21/24 04:57 RDW Coeff of [place] 14.1 % (11.5-14.5) 06/21/24 04:57 Plt Count 282 K/uL (130-400) 06/21/24 04:57 MPV 10.0 fL (9.4-12.4) 06/21/24 04:57 Immature Gran % (Auto) 3.9 % 06/17/24 06:33 Neut % (Auto) 77.1 % 06/17/24 06:33 Lymph % (Auto) 7.3 % 06/17/24 06:33 Sebastian % (Auto) 11.4 % 06/17/24 06:33 Eos % (Auto) 0.0 % 06/17/24 06:33 Baso % (Auto) 0.3 % 06/17/24 06:33 Neut # (Auto) 10.05 K/uL (1.40-6.50) H 06/17/24 06:33 Lymph # (Auto) 0.95 K/uL (1.20-3.40) L 06/17/24 06:33 Sebastian # (Auto) 1.48 K/uL (0.11-0.59) H 06/17/24 06:33 Eos # (Auto) 0.00 K/uL (0.00-0.50) 06/17/24 06:33 Baso # (Auto) 0.04 K/uL (0.00-0.20) 06/17/24 06:33 Immature Gran # (Auto) 0.51 K/uL (0.01-0.20) H 06/17/24 06:33 Toxic Vacuolation 1+ 06/15/24 02:04 Polychromasia 1+ 06/15/24 02:04 Echinocytes 1+ 06/15/24 02:04 PT 10.3 Seconds (9.0-12.0) 06/13/24 10:57 INR 0.9 (0.9-1.1) 06/13/24 10:57 APTT 23 Seconds (21-31) 06/13/24 10:57 PTT Ratio 0.9 06/13/24 10:57 VBG pH 7.38 (7.36-7.41) 06/13/24 11:21 VBG pCO2 40 mmHg (38-50) 06/13/24 11:21 VBG pO2 26 mmHg 06/13/24 11:21 VBG HCO3 24 mmol/L 06/13/24 11:21 VBG O2 Saturation < 60.0 % 06/13/24 11:21 VBG Base Excess -1.3 mEq/L 06/13/24 11:21 POC Sodium 116 mmol/L (135-144) L* 06/13/24 10:46 Sodium 136 mmol/L (136-145) 06/21/24 04:57 POC Potassium 7.0 mmol/L (3.3-5.0) H* 06/13/24 10:46 Potassium 3.5 mmol/L (3.5-5.1) 06/21/24 04:57 POC Chloride 85 mmol/L (101-112) L 06/13/24 10:46 Chloride 97 mmol/L (98-107) L 06/21/24 04:57 Carbon Dioxide 32 mmol/L (21-32) 06/21/24 04:57 POC Total CO2 23 mmol/L (24-31) L 06/13/24 10:46 Anion Gap 7 (3-11) 06/21/24 04:57 POC Anion Gap 15.0 mmol/L (16-25) L 06/13/24 10:46 POC BUN 33 mg/dl (7-18) H 06/13/24 10:46 BUN 22 mg/dl (6-23) 06/21/24 04:57 Creatinine 0.47 mg/dl (0.6-1.2) L 06/21/24 04:57 POC Creatinine 0.7 mg/dl (0.6-1.3) 06/13/24 10:46 Est Cr Clr Drug Dosing 85.6 ml/min 06/21/24 04:57 eGFR 101.09 06/21/24 04:57 BUN/Creatinine Ratio 46.8 (10-20) H 06/21/24 04:57 Glucose 87 mg/dl (70-99(Fasting)) 06/21/24 04:57 POC Glucose 149 mg/dl (70-99) H 06/14/24 23:51 POC Glucose (other) 79 mg/dl (70-99) 06/13/24 10:46 Estimat Average Glucose 137 mg/dl 06/15/24 06:11 Hemoglobin A1c 6.4 % (4.5-5.6) H 06/15/24 06:11 Osmolality 269 mOsm/kg (280-300) L 06/15/24 02:04 Calcium 8.4 mg/dl (8.6-10.3) L 06/21/24 04:57 POC Ioniz Calcium Lux 0.95 mmol/l (1.12-1.32) L 06/13/24 10:46 Phosphorus 3.1 mg/dl (2.5-4.9) 06/21/24 04:57 Magnesium 2.3 mg/dl (1.7-2.4) 06/21/24 04:57 Total Bilirubin 0.8 mg/dl (0.2-1.0) 06/20/24 05:43 Direct Bilirubin 0.2 mg/dl (0-0.2) 06/14/24 07:30 AST 33 U/L (13-39) 06/20/24 05:43 ALT 70 U/L (7-52) H 06/20/24 05:43 Alkaline Phosphatase 86 U/L (34-104) 06/20/24 05:43 Total Creatine Kinase 76 U/L (26-192) 06/18/24 06:05 Troponin I High Sens 27.0 pg/ml (0-14) H 06/15/24 12:18 B-Natriuretic Peptide 442 pg/ml (0-100) H 06/13/24 11:21 Total Protein 5.8 gm/dl (6.0-8.3) L 06/20/24 05:43 Albumin 3.1 gm/dl (3.4-5.0) L 06/20/24 05:43 Globulin 2.7 gm/dl (2.5-4.0) 06/20/24 05:43 Albumin/Globulin Ratio 1.1 (0.9-2) 06/20/24 05:43 Triglycerides 113 mg/dl (0-150) 06/15/24 02:04 Cholesterol 194 mg/dl (0-200) 06/15/24 02:04 LDL Cholesterol, Calc 79 mg/dl 06/15/24 02:04 VLDL Cholesterol, Calc 23 mg/dl (0-30) 06/15/24 02:04 HDL Cholesterol 92 mg/dl 06/15/24 02:04 Cholesterol/HDL Ratio 2.1 (0-5) 06/15/24 02:04 Lipase 35 U/L (11-82) 06/13/24 10:57 Procalcitonin 0.36 ng/ml (0-0.5) 06/14/24 08:33 TSH 1.909 uIu/ml (0.300-4.500) 06/14/24 08:33 Urine Color Yellow 06/17/24 Unknown Urine Appearance Clear (Clear) 06/17/24 Unknown Urine pH 5.5 (4.5-7.5) 06/17/24 Unknown Ur Specific [place] 1.009 (1.000-1.030) 06/17/24 Unknown Urine Protein Negative (Negative) 06/17/24 Unknown Urine Glucose (UA) Negative (Negative) 06/17/24 Unknown Urine Ketones Negative (Negative) 06/17/24 Unknown Urine Blood 2+ (Negative) H 06/17/24 Unknown Urine Nitrite Negative (Negative) 06/17/24 Unknown Urine Bilirubin Negative (Negative) 06/17/24 Unknown Urine Urobilinogen Negative (Negative) 06/17/24 Unknown Ur Leukocyte Esterase Negative (Negative) 06/17/24 Unknown Urine WBC (Auto) 0-5 /hpf (0-5) 06/17/24 Unknown Urine RBC (Auto) >20 /hpf (0-2) H 06/17/24 Unknown U Hyaline Cast (Auto) 0-2 /lpf (0-2) 06/17/24 Unknown U Epithel Cells (Auto) 0-2 /hpf (0-2) 06/17/24 Unknown Urine Bacteria (Auto) None Seen (None Seen) 06/17/24 Unknown Urine Osmolality 494 mOsm/kg (500-800) L 06/15/24 06:10 Ur Random Creatinine 42.7 mg/dl 06/15/24 06:10 Ur Random Creatinine Cancelled 06/15/24 06:10 Ur Random Sodium < 10 mmol/L 06/13/24 15:23 Ur Random Urea Nitrogn 920 mg/dL 06/15/24 06:10 Urine Sodium < 10 mmol/L 06/15/24 06:10 Urine Potassium 16.6 mmol/L 06/15/24 06:10 Urine Chloride < 15 mmol/L 06/15/24 06:10 Nasal Screen MRSA (PCR) Negative (Negative) 06/14/24 15:25 Beta-2-GPI IgG Ab <2.0 U/mL (<20.0) 06/15/24 06:11 Beta-2-GPI IgA Ab <2.0 U/mL (<20.0) 06/15/24 06:11 Beta-2-GPI IgM Ab <2.0 U/mL (<20.0) 06/15/24 06:11 Phosphatidyl&Prothr IgG <9 U (<=30) 06/15/24 06:11 Phosphatidyl&Prothr IgM 13 U (<=30) 06/15/24 06:11 Anti-Phospholipid Intrp see note 06/15/24 06:11 Anti-Cardiolipin IgG Ab <2.0 GPL-U/mL (<20.0) 06/15/24 06:11 Anti-Cardiolipin IgA Ab <2.0 APL-U/mL (<20.0) 06/15/24 06:11 Anti-Cardiolipin IgM Ab <2.0 MPL-U/mL (<20.0) 06/15/24 06:11 Adenovirus (PCR) Not Detected (NotDetected) 06/13/24 10:40 B. pertussis DNA (PCR) Not Detected (NotDetected) 06/13/24 10:40 B.parapertussis DNA PCR Not Detected (NotDetected) 06/13/24 10:40 C. pneumoniae DNA (PCR) Not Detected (NotDetected) 06/13/24 10:40 Coronavirus OC43 (PCR) Not Detected (NotDetected) 06/13/24 10:40 Coronavirus HKU1 (PCR) Not Detected (NotDetected) 06/13/24 10:40 Coronavirus 229E (PCR) Not Detected (NotDetected) 06/13/24 10:40 SARS-CoV-2 (PCR) DETECTED (NotDetected) A 06/13/24 10:40 Coronavirus NL63 (PCR) Not Detected (NotDetected) 06/13/24 10:40 Human Metapneumovir PCR Not Detected (NotDetected) 06/13/24 10:40 Influenza Type A (PCR) Not Detected (NotDetected) 06/13/24 10:40 Influenza Type B (PCR) Not Detected (NotDetected) 06/13/24 10:40 M. pneumoniae (PCR) Not Detected (NotDetected) 06/13/24 10:40 Parainfluenza 1 (PCR) Not Detected (NotDetected) 06/13/24 10:40 Parainfluenza 2 (PCR) Not Detected (NotDetected) 06/13/24 10:40 Parainfluenza 3 (PCR) Not Detected (NotDetected) 06/13/24 10:40 Parainfluenza 4 (PCR) Not Detected (NotDetected) 06/13/24 10:40 RSV (PCR) Not Detected (NotDetected) 06/13/24 10:40 Entero/Rhino (PCR) Not Detected (NotDetected) 06/13/24 10:40 Impressions Abdomen/Pelvis CT 06/13/24 10:41 CT OF THE ABDOMEN AND PELVIS WITH CONTRAST CLINICAL HISTORY: trauma COMPARISON STUDY: Pelvis radiograph performed earlier today. TECHNIQUE: Following IV administration of 94 mL of Optiray, axial images of the abdomen and pelvis were obtained from the lung bases to the proximal femurs. Images were reviewed in the axial, sagittal, and coronal planes. IV contrast was administered without complication. Automated exposure control was utilized for the study. A dose lowering technique was utilized adhering to the principles of ALARA. FINDINGS: Moderate right and small left pleural effusions are present. Extensive associated bilateral lower lobe airspace opacities are present. Distal esophageal wall thickening is noted. There is body wall edema. There is also mild mesenteric edema as well as presacral fluid. Exam is mildly compromised by motion artifact. No hemoperitoneum or pneumoperitoneum is present. There is no evidence for traumatic injury to the liver, spleen, adrenal glands, kidneys or pancreas. There is a left lower pole renal cyst. There is no hydronephrosis. No biliary or pancreatic ductal dilatation is present. Prominent mucosal enhancement of the stomach and duodenum is present. There is no evidence for a bowel obstruction. The bladder is significantly distended. There are calcified fibroids. No acute fractures within the lumbar spine, pelvis or hips are identified. There are no fluid collections. IMPRESSION: 1. No acute traumatic findings within the abdomen or pelvis. Exam mildly compromised by motion artifact. 2. No acute fractures. 3. Evidence for volume overload. Body wall edema. Trace ascites within the abdomen and pelvis. 4. Distended bladder. 5. Prominent mucosal enhancement of the stomach and duodenum. This may be related to the phase of enhancement however gastritis/duodenitis could appear similar. ACT 112: Negative or not required by law. Electronically signed by: Jimi Jaramillo M.D. 06/13/2024 11:44 AM Chest X-Ray 06/13/24 10:41 XR chest 1V portable CLINICAL HISTORY: fall COMPARISON STUDY: Chest radiograph and chest CT February 04, 2021. FINDINGS: There is no pneumothorax. There is mild cardiomegaly. Interstitial thickening is noted. Bilateral perihilar prominence is symmetric. Moderate right and small left pleural effusions are present. IMPRESSION: 1. No pneumothorax. 2. Moderate right and small left pleural effusions with associated bibasilar opacities. 3. Interstitial pulmonary edema. ACT 112: Negative or not required by law. Electronically signed by: Jimi Jaramillo M.D. 06/13/2024 11:17 AM Pelvis X-Ray 06/13/24 10:41 XR pelvis 1-2V routine CLINICAL HISTORY: fall COMPARISON: Sacrum and coccyx radiographs September 10, 2013. FINDINGS: The bladder may be distended. There are no fractures within the pelvis or hips. There is mild bilateral hip osteophytosis IMPRESSION: 1. No fractures within the pelvis or hips. 2. Suspected bladder distention. ACT 112: Negative or not required by law. Electronically signed by: Jimi Jaramillo M.D. 06/13/2024 11:[address] 06/13/24 10:42 CT OF THE CERVICAL SPINE WITHOUT CONTRAST CLINICAL HISTORY: trauma COMPARISON STUDY: CTA of the neck May 10, 2022. TECHNIQUE: Helical axial images of the cervical spine were obtained without IV contrast. Sagittal and coronal reconstructions were viewed. Automated exposure control was utilized for the study. A dose lowering technique was utilized adhering to the principles of ALARA. FINDINGS: Alignment of the cervical spine is anatomic. Vertebral body heights are maintained. No acute cervical spine fracture or subluxation is present. There is no prevertebral edema. Facet joints are intact. Moderate multilevel degenerative disc disease and facet arthrosis is present. IMPRESSION: No acute cervical spine fracture or subluxation. ACT 112: Negative or not required by law. Electronically signed by: Jimi Jaramillo M.D. 06/13/2024 11:27 AM Femur X-Ray 06/13/24 10:46 XR femur LT 2V routine CLINICAL HISTORY: trauma COMPARISON: None FINDINGS: Alignment of the left hip and left knee is anatomic. There are no left femoral fractures. There are no osseous lesions. Mild left hip osteoarthritis. IMPRESSION: No left femoral fractures. ACT 112: Negative or not required by law. Electronically signed by: Jimi Jaramillo M.D. 06/13/2024 11:[address] 06/13/24 10:48 CT OF THE CHEST WITH IV CONTRAST CLINICAL HISTORY: trauma COMPARISON STUDY: Chest CT February 04, 2021. TECHNIQUE: Following IV administration of 94 mL of Optiray, helical axial images of the chest were obtained. Sagittal and coronal reconstructions were viewed as well as maximal intensity projections on an independent 3-D workstation. Automated exposure control was utilized for the study. A dose lowering technique was utilized adhering to the principles of ALARA. FINDINGS: There is no evidence for acute injury to the thoracic aorta. No mediastinal hematoma is present. There is mild cardiomegaly. No pericardial effusion is present. There is no pneumothorax. Moderate right and small left pleural effusions are present. Subpleural bilateral lower lobe airspace opacities are noted. There are moderate secretions within the lower lobe airways. No central obstructing mass is identified. No acute rib or thoracic spine fracture is identified. The abdomen and pelvis CT will be reported separately. Circumferential wall thickening of the esophagus is present. IMPRESSION: 1. No acute traumatic findings within the chest. 2. Moderate right and small left pleural effusions. Extensive associated bilateral lower lobe airspace opacities. These may reflect pneumonia or aspiration pneumonitis. Atelectasis could appear similar although pneumonia/aspiration pneumonitis is favored, particularly within the left lower lobe. 3. No pneumothorax. 4. Circumferential wall thickening of the esophagus. This may reflect esophagitis. ACT 112: Negative or not required by law. Electronically signed by: Jimi Jaramillo M.D. 06/13/2024 11:[address] 06/15/24 00:09 EXAM: CT head/brain wo con CLINICAL HISTORY: cva TECHNIQUE: Axial non-contrast CT scan of the brain was performed from the skull base to the high parietal region with coronal and sagittal reformats. One of the following dose reduction techniques were utilized for this exam: Automated exposure control, adjustment of the mA and/or kV according to patient size, use of iterative reconstruction. COMPARISON: 06/13/2024 FINDINGS: Brain Parenchyma: Normal attenuation of the cerebral hemispheres, cerebellum, and brainstem. No evidence of acute infarct, hemorrhage, or mass effect. There are mildly accentuated white matter hypodensities in both the cerebral hemispheres suggestive of mild microvascular ischemic changes. Mild age-appropriate involutional changes are seen in the brain evident by widened extra-axial CSF spaces, and slightly deepened cortical sulci. Ventricular System: Ventricles are normal in size and configuration. No evidence of hydrocephalus or ventricular enlargement. Subarachnoid Spaces: No evidence of subarachnoid hemorrhage or extra-axial fluid collections. Cerebellum and Brainstem: Normal size and signal. No masses, lesions, or areas of abnormal signal. Orbits: Normal appearance of the globes, optic nerves, and extraocular muscles. No evidence of orbital masses or abnormal signal. Sinuses: Clear paranasal sinuses. No evidence of sinusitis or mucosal thickening. Mastoid Air Cells: Clear mastoid air cells. No evidence of mastoiditis. Skull and Meninges: Normal skull morphology. IMPRESSION: 1. No acute intracranial abnormality. 2. Mild microvascular ischemic changes and mild age-appropriate involutional changes are seen in the brain. Electronically signed by Jeremías Coelho 06-15-2024 01:12 AM Head CTA 06/15/24 00:09 EXAM: CT angio head w con CLINICAL HISTORY: cva 118 cc opti 320 TECHNIQUE: Axial CT angiography of the head was done with 118cc of opitray-320mg/ml contrast and sagittal and coronal reformats with MIP reconstructions. One of these 3D techniques was utilized: Maximum Intensity Pixel (MIP), 3D Reconstructed Images, Volume Rendered Images, Surface Shaded Rendering. One of the following dose reduction techniques were utilized for this exam: Automated exposure control, adjustment of the mA and/or kV according to patient size, and use of iterative reconstruction. COMPARISON: None. FINDINGS: Intracranial Arteries: The intracranial portions of the internal carotid arteries show crescentic calcified plaques causing mild stenosis (20-25%). The anterior cerebral arteries, middle cerebral arteries, posterior cerebral arteries, basilar artery, and vertebral arteries are well-opacified. 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 Focal speck of calcification is seen in the M1 segment of the left middle cerebral artery, not causing any luminal stenosis. No evidence of aneurysm, stenosis, or occlusion. No significant atherosclerotic changes. [place]: The [place] is complete. Normal caliber of the communicating arteries. No vascular malformations or aneurysms. Venous Structures: Normal opacification of the major dural venous sinuses. No evidence of venous sinus thrombosis. Brain Parenchyma: Normal attenuation of the cerebral hemispheres, cerebellum, and brainstem. No evidence of acute infarct, hemorrhage, or mass effect. Ventricular System: Ventricles are normal in size and configuration. No evidence of hydrocephalus or ventricular enlargement. Skull and Meninges: Normal appearance of the skull. No evidence of meningeal enhancement or thickening. Orbits: Normal appearance of the globes, optic nerves, and extraocular muscles. No evidence of orbital masses or abnormal signals. IMPRESSION: 1. Normal CT angiography of the head. 2. No evidence of significant vascular abnormalities. 3. 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 4. Focal speck of calcification is seen in the M1 segment of the left middle cerebral artery, not causing any luminal stenosis. 5. Mild stenosis of both ICA segments due to calcified plaques. Electronically signed by Jeremías Coelho 06-15-2024 01:20 AM Neck CTA 06/15/24 00:09 EXAM: CT angio neck with con CLINICAL HISTORY: cva 118 cc opti 320 TECHNIQUE: CT angiography study of the neck vessels with 118cc Opitray-320mg/ml IV contrast was performed and multiple axial sections were obtained with coronal and sagittal reconstructions. xOne of the following dose reduction techniques were utilized for this exam: Automated exposure control, adjustment of the mA and/or kV according to patient size, and use of iterative reconstruction. One of these 3D techniques was utilized: Maximum Intensity Pixel (MIP), 3D Reconstructed Images, Volume Rendered Images, Surface Shaded Rendering COMPARISON: 05/09/2022. FINDINGS: Carotid Arteries: Common carotid arteries, internal carotid arteries, and external carotid arteries bilaterally are well-opacified. No evidence of significant stenosis, occlusion, or aneurysm. No significant atherosclerotic changes. Vertebral Arteries: Vertebral arteries bilaterally are well-opacified. No evidence of significant stenosis, occlusion, or aneurysm. No significant atherosclerotic changes. Jugular Veins: Normal opacification of the internal and external jugular veins bilaterally. No evidence of thrombosis or compression. Subclavian Arteries: Subclavian arteries bilaterally are well-opacified. No evidence of significant stenosis, occlusion, or aneurysm. Thyroid Gland: Normal size and morphology of the thyroid gland. No masses or nodules. Soft Tissues: Normal appearance of the surrounding soft tissues of the neck. No abnormal masses or lymphadenopathy. Cervical Spine: Normal alignment and signal intensity of the cervical vertebrae. No fractures, lytic or sclerotic lesions. Incidental note is made of moderate-volume bilateral pleural effusions with passive atelectasis. IMPRESSION: 1. Normal CT angiography of the neck. 2. No evidence of significant vascular abnormalities. Electronically signed by Jeremías Coelho 06-15-2024 01:29 AM Brain MRI 06/15/24 09:00 Exam(s): MRI HEAD W/WO Contrast IV Amt: 6cc gadavist EXAM: MR Head Without and With Intravenous Contrast CLINICAL HISTORY: Reason for exam: cva. TECHNIQUE: Magnetic resonance images of the head/brain without and with intravenous contrast in multiple planes. CONTRAST: Patient received 6cc gadavist of IV contrast COMPARISON: Head CT 06/15/2024 FINDINGS: Brain: No restricted diffusion. No intracranial hemorrhage. No mass- effect or cerebral edema. Periventricular and subcortical T2/flair hyperintensities favored to represent chronic microvascular ischemic changes. No abnormal enhancement. Some artifact on the postcontrast images. Ventricles: Unremarkable. No ventriculomegaly. Bones/joints: Unremarkable. No acute fracture. Sinuses: Unremarkable as visualized. No acute sinusitis. Mastoid air cells: Unremarkable as visualized. No mastoid effusion. Orbits: Unremarkable as visualized. IMPRESSION: No acute infarct. Electronically signed by: Khurram Alonso MD 06/15/24 23:33 PM (5) Rhabdomyolysis Rhabdomyolysis type: non-traumatic Qualified Code(s): M62.82 - Rhabdomyolysis (7) Raynauds phenomenon Raynaud?s-associated gangrene presence: without gangrene Qualified Code(s): I73.00 - Raynaud's syndrome without gangrene
[2024-06-21] MEDS: NYSTATIN SUSP 500,000 U/5 ML UDC PO SCH (12:09)
[2024-06-21] MEDS: ACETAMINOPHEN 325 MG TAB PO PRN (21:31)
[2024-06-21] MEDS: FLUCONAZOLE 100 MG TAB PO SCH (21:33)
[2024-06-22 06:23] LABS: Hematocrit (blood only) 39.5 % (37.0-47.0); Hemoglobin 14.1 g/dl (12.0-16.0); Mean Corpuscular Hemoglobin 29.9 pg (25.0-34.0); Mean Corpuscular Hgb Conc 35.7 g/dL (32.0-36.0); Mean Corpuscular Volume 83.9 fL (80.0-100.0); Mean Platelet Volume 8.6 fL (9.4-12.4); Platelet Count 417 K/uL (130-400); RDW Coefficient of Variation 13.8 % (11.5-14.5); RDW Standard Deviation 42.6 fL (36.4-46.3); Red Blood Count 4.71 M/uL (4.20-5.40); White Blood Count 12.35 K/ul (4.8-10.8)
[2024-06-22 06:39] LABS: Calcium 8.5 mg/dl (8.6-10.3); Creatinine Clr Calc Pharmacy 78.9 ml/min; Magnesium 2.3 mg/dl (1.7-2.4); Phosphorus 2.9 mg/dl (2.5-4.9); Potassium 3.9 mmol/L (3.5-5.1)
--- NOTE | 2024-06-22 09:38 | Hospitalist Progress Note ---
Date of Service June 22, 2024 Assessment & Plan (1) Acute hypoxic respiratory failure: (2) Bilateral pleural effusion: (3) COVID-19: (4) Stroke-like symptoms: Plan Aisha Garnica is a 74y/o F with PMHx significant for Raynaud's disease, chronic vertigo, thoracic ascending aneurysm, chronic venous insufficiency with history of recurrent venous ulcers who previously followed at the wound clinic who was brought into the ED on 06/13/2024 as a trauma alert. Found to be hypoxic by EMS and was placed on O2 that had to be titrated up to high flow before patient was ultimately placed on BiPAP. Acute Hypoxic Respiratory Failure - RESOLVED Bilateral Pleural Effusions, COVID-19 Pneumonia: Originally diagnosed with COVID on 06/09 with symptoms since 06/06. Prescribed Paxlovid outpatient CT chest with L pleural effusions & B/L opacities. Echo showed EF 60-65% with no evidence of CHF, diastolic dysfunction was not able to be evaluated. Completed Zosyn and Doxy, IV Lasix was transitioned to po Lasix. Strict I&Os. Was on IV dexamethasone for 7 days - discontinued on 06/21, hypoxia resolved. Oral Thrush: Likely secondary to IV antibiotics and steroids, now both discontinued. Started on po Diflucan on 06/21, received IV dose x 1 on 06/20. Continue Nystatin; po Diflucan transitioned to IV Diflucan, magic mouthwash added on. Hypokalemia, Hyponatremia - RESOLVED: Sodium 121 on admission, dropped to 118 and now within normal limits. Nephro now signed off. Continue fluid restriction of 1500mL/day, continue po Lasix. Acute Urinary Retention: Vigil catheter in place, strict I&Os. Can consider voiding trial once mobility improves, likely tomorrow. Recent Mechanical Fall: Traumatic workup negative, PT/OT; plan for SNF on d/c. Stroke-like symptoms - CVA ruled out MRI brain negative, CTA head/neck without any acute findings. Per neuro, no further neurological workup necessary at this time. Other Chronic Medical Conditions: Raynaud's disease -> Can continue home nifedipine. DVT Prophylaxis: SQ Lovenox Code Status: FULL CODE Disposition: Denied inpatient rehab at [facility]. [facility] can accept patient, awaiting insurance auth - CM involved. Patient seen in collaboration with Dr. Vasquez. Please see addendum. I spent a total of 45 minutes coordinating, documenting, and providing care for this patient excluding time spent in the performance of separately billed services. This included personally reviewing all current laboratories and imaging studies, medical reconciliation, outpatient chart review and discussion with specialists. This chart was completed in part utilizing Speech Voice Recognition Software. Grammatical errors, random word insertions, pronoun errors, and incomplete sentences are an occasional consequence of this system due to software limitations, ambient noise, and hardware issues. Any formal questions or concerns about the content, text, or information contained within the body of this dictation should be directly addressed to the provider for clarification. Admission and Anticipated Discharge Date Admission Date: June 13, 2024 Supervising Physician Co-Signing Physician Notes Pt was seen and examined by myself, Galilea Vasquez MD on the day of service. Care was coordinated with Rabia Wild PA-C. Pt seen sitting in chair eating, holding her mouth. Oral thrush- magic mouthwash prn, switch to IV diflucan Currently awaiting placement. Otherwise as above. I spent a total [id number] coordinating, documenting, and providing care for this patient excluding time spent in the performance of separately billed services Subjective Patient seen and examined this morning at bedside. Reports ongoing oral pain/soreness of her tongue secondary to oral candidiasis. She was able to take her pills this morning but mentions it is painful to chew food. She is tolerating liquid oral intake without issue. She is agreeable with starting Magic mouthwash and transitioning from oral Diflucan to IV. Waiting on rehab placement. Review of Systems Review of Systems: At least ten systems reviewed and negative, except as noted in the subjective section. Physical Exam Physical Exam: General: NAD, sitting up in chair at bedside, pleasant, conversing appropriately. A+Ox3, somewhat flat affect. HEENT: Normocephalic, atraumatic. Conjunctivae normal. Oral cavity with erythema, white coating consistent with thrush. Respiratory: Normal respiratory effort, diminished lung sounds throughout, no wheeze/rales/rhonchi. No accessory muscle use. Cardiovascular: Regular rate, rhythm, normal peripheral pulses, trace BLE edema. Vessels: No JVD. Abdomen/GI: Normal bowel sounds, soft, nondistended, nontender to palpation in all quadrants. : Vigil catheter intact and draining clear, yellow urine without issue. Extremities/Musculoskeletal: No cyanosis or clubbing, extremities motor strength intact, moves all extremities. Neurologic: No overt focal deficits, CN's II-XI not formally tested but appear grossly intact bilaterally. Skin: No rashes, normal color, warm/dry. Results & Data Results & Data Vital Signs (Past 12 Hours) Vital Signs Temp Pulse Resp BP Pulse Ox O2 Del Method 06/22/24 06:58 37.1 C 55 L 16 106/66 94 Room Air 06/21/24 22:09 Room Air Laboratory Results Short CBC 06/22/24 Range/Units 05:53 WBC 12.35 H (4.8-10.8) K/ul Hgb 14.1 (12.0-16.0) g/dl Hct 39.5 (37.0-47.0) % Plt Count 417 H (130-400) K/uL BMP 06/22/24 05:53 Sodium 137 Potassium 3.9 Chloride 99 Carbon Dioxide 32 BUN 25 H Creatinine 0.51 L Glucose 91 Calcium 8.5 L
[2024-06-22] MEDS: FIRST - Mouthwash BLM 5 ML UDP PO SCH (11:40)
[2024-06-22] MEDS: FLUCONAZOLE 100 MG/50 ML BAG IV SCH (20:06)
[2024-06-23 07:19] LABS: Hematocrit (blood only) 39.6 % (37.0-47.0); Hemoglobin 13.6 g/dl (12.0-16.0); Mean Corpuscular Hemoglobin 29.1 pg (25.0-34.0); Mean Corpuscular Hgb Conc 34.3 g/dL (32.0-36.0); Mean Corpuscular Volume 84.8 fL (80.0-100.0); Mean Platelet Volume 9.8 fL (9.4-12.4); Platelet Count 375 K/uL (130-400); RDW Standard Deviation 43.1 fL (36.4-46.3); Red Blood Count 4.67 M/uL (4.20-5.40)
[2024-06-23 07:48] LABS: Calcium 8.4 mg/dl (8.6-10.3); Creatinine Clr Calc Pharmacy 73.1 ml/min; Magnesium 2.2 mg/dl (1.7-2.4); Phosphorus 3.1 mg/dl (2.5-4.9); Potassium 3.9 mmol/L (3.5-5.1)
--- NOTE | 2024-06-23 08:21 | Hospitalist Progress Note ---
Date of Service June 23, 2024 Assessment & Plan (1) Acute hypoxic respiratory failure: (2) Bilateral pleural effusion: (3) COVID-19: (4) Stroke-like symptoms: Plan Aisha Garnica is a 74y/o F with PMHx significant for Raynaud's disease, chronic vertigo, thoracic ascending aneurysm, chronic venous insufficiency with history of recurrent venous ulcers who previously followed at the wound clinic who was brought into the ED on 06/13/2024 as a trauma alert. Found to be hypoxic by EMS and was placed on O2 that had to be titrated up to high flow before patient was ultimately placed on BiPAP. Acute Hypoxic Respiratory Failure - RESOLVED Bilateral Pleural Effusions, COVID-19 Pneumonia: Originally diagnosed with COVID on 06/09 with symptoms since 06/06. Prescribed Paxlovid outpatient CT chest with L pleural effusions & B/L opacities. Echo showed EF 60-65% with no evidence of CHF, diastolic dysfunction was not able to be evaluated. Completed Zosyn and Doxy, IV Lasix was transitioned to po Lasix. Strict I&Os. Was on IV dexamethasone for 7 days - discontinued on 06/21, hypoxia resolved. Oral Thrush: Likely secondary to IV antibiotics and steroids - now both discontinued. Started on po Diflucan on 06/21, received IV dose x 1 on 06/20. Continue Nystatin; po Diflucan transitioned to IV Diflucan, magic mouthwash PRN. Hypokalemia, Hyponatremia: Sodium 121 on admission, dropped to 118 and now remains stable. Nephro now signed off. Continue fluid restriction of 1500mL/day, continue po Lasix. Acute Urinary Retention: Vigil catheter in place, strict I&Os. Consider voiding trial in the AM. Recent Mechanical Fall: Traumatic workup negative, PT/OT; plan for SNF on /. Stroke-like symptoms - CVA ruled out MRI brain negative, CTA head/neck without any acute findings. Per neuro, no further neurological workup necessary at this time. Other Chronic Medical Conditions: Raynaud's disease -> Can continue home nifedipine. DVT Prophylaxis: SQ Lovenox Code Status: FULL CODE Disposition: Denied inpatient rehab at [facility] can accept patient, likely to be discharged tomorrow. Patient seen in collaboration with Dr. Vasquez. Please see addendum. I spent a total of 35 minutes coordinating, documenting, and providing care for this patient excluding time spent in the performance of separately billed services. This included personally reviewing all current laboratories and imaging studies, medical reconciliation, outpatient chart review and discussion with specialists. This chart was completed in part utilizing Speech Voice Recognition Software. Grammatical errors, random word insertions, pronoun errors, and incomplete sentences are an occasional consequence of this system due to software limitations, ambient noise, and hardware issues. Any formal questions or concerns about the content, text, or information contained within the body of this dictation should be directly addressed to the provider for clarification. Admission and Anticipated Discharge Date Admission Date: June 13, 2024 Supervising Physician Co-Signing Physician Notes Pt was seen and examined by myself, Galilea Vasquez MD on the day of service. Care was coordinated with Rabia Wild PA-C. Pt seen sitting in bed eating. Oral thrush- on nystatin po scheduled, magic mouthwash prn, switch to IV diflucan Currently awaiting placement- pt states that she would like the thrush "taken care of" before leaving. Going to [facility]. Otherwise as above. I spent a total [id number] coordinating, documenting, and providing care for this patient excluding time spent in the performance of separately billed services Subjective Patient seen and examined this morning at bedside. Endorses ongoing oral pain/soreness of her tongue secondary to oral candidiasis but was able to tolerate some scrambled eggs this morning. She has been using Magic mouthwash with some relief and was transitioned from oral Diflucan to IV yesterday. We discussed placement at [facility] - which is anticipated to occur tomorrow. Review of Systems Review of Systems: At least ten systems reviewed and negative, except as noted in the subjective s ection. Physical Exam Physical Exam: General: NAD, sitting up in bed, very pleasant, eating breakfast, conversing appropriately. A+Ox3, somewhat flat affect. HEENT: Normocephalic, atraumatic. Oral cavity with erythema, white coating consistent with thrush - appears to be improving. Respiratory: Normal respiratory effort, diminished lung sounds throughout, no wheeze/rales/rhonchi. No accessory muscle use. Cardiovascular: Regular rate, rhythm, normal peripheral pulses, no BLE edema. Vessels: No JVD. Abdomen/GI: Normal bowel sounds, soft, nondistended, nontender to palpation in all quadrants. : Vigil catheter intact and draining clear, yellow urine without issue. Extremities/Musculoskeletal: No cyanosis or clubbing, extremities motor strength intact, moves all extremities. Neurologic: No overt focal deficits, CN's II-XI not formally tested but appear grossly intact bilaterally. Skin: No rashes, normal color, warm/dry. Results & Data Results & Data Vital Signs (Past 12 Hours) Vital Signs Temp Pulse Resp BP Pulse Ox O2 Del Method 06/23/24 07:54 37.1 C 74 18 106/66 96 Room Air 06/22/24 23:50 Room Air Laboratory Results Short CBC 06/23/24 Range/Units 06:27 WBC 9.80 (4.8-10.8) K/ul Hgb 13.6 (12.0-16.0) g/dl Hct 39.6 (37.0-47.0) % Plt Count 375 (130-400) K/uL BMP 06/23/24 06:27 Sodium 135 L Potassium 3.9 Chloride 98 Carbon Dioxide 30 BUN 22 Creatinine 0.55 L Glucose 86 Calcium 8.4 L
[2024-06-23] MEDS: FIRST - Mouthwash BLM 5 ML UDP PO SCH (09:43)
[2024-06-24 06:26] LABS: Hematocrit (blood only) 38.1 % (37.0-47.0); Hemoglobin 13.2 g/dl (12.0-16.0); Mean Corpuscular Hemoglobin 29.4 pg (25.0-34.0); Mean Corpuscular Hgb Conc 34.6 g/dL (32.0-36.0); Mean Corpuscular Volume 84.9 fL (80.0-100.0); Mean Platelet Volume 10.8 fL (9.4-12.4); Platelet Count 339 K/uL (130-400); RDW Coefficient of Variation 14.3 % (11.5-14.5); Red Blood Count 4.49 M/uL (4.20-5.40); White Blood Count 7.49 K/ul (4.8-10.8)
[2024-06-24 06:54] LABS: BUN Creatinine Ratio 45.8 (10-20); Calcium 8.4 mg/dl (8.6-10.3); Creatinine Clr Calc Pharmacy 83.8 ml/min; Magnesium 2.2 mg/dl (1.7-2.4); Phosphorus 2.8 mg/dl (2.5-4.9); Potassium 3.7 mmol/L (3.5-5.1)
[2024-06-24 07:51] VITALS: RESP 15; TEMP 99; O2SAT 95
--- NOTE | 2024-06-24 09:01 | Discharge Summary ---
Discharge Summary Date of Service June 24, 2024 Principal Dx & Hospital Course #1 = Principal Diagnosis (1) Acute hypoxic respiratory failure: (2) Bilateral pleural effusion: (3) COVID-19: (4) Stroke-like symptoms: (5) Rhabdomyolysis: (6) Hyponatremia: Plan Ms. Aisha Garnica is a 74y/o F with PMHx significant for Raynaud's disease, chronic vertigo, thoracic ascending aortic aneurysm, osteopenia, generalized osteoarthritis and chronic venous insufficiency with history of recurrent venous ulcers who previously followed at the wound clinic who was brought into the ED on 06/13/2024 as a trauma alert. Acute Hypoxic Respiratory Failure - RESOLVED Bilateral Pleural Effusions, COVID-19 Pneumonia: Patient was found down at home by police prior to arrival after her neighbors had called for a wellness check. Her last known well was 2 days prior to her being found. Patient had initially reported to EMS that she thought she may have fallen sometime the night before she was found while trying to get out of bed. Initial oxygen saturation for EMS was in the upper 70s to mid 80s so she was placed on supplemental O2 up to 15L via nonrebreather. In the ED, patient was placed on BiPAP as she was having trouble tolerating the high flow oxygen. She was diagnosed with COVID on 06/09/2024 and prescribed Paxlovid as an outpatient (which she did not take). Admitting CXR noted moderate right and small left pleural effusions with associated bibasilar opacities in addition to interstitial pulmonary edema. Admitting chest CT noted moderate right and small left pleural effusions once again in addition to extensive associated bilateral lower lobe airspace reflecting pneumonia or aspiration pneumonitis - particularly within the left lower lobe. Initial trauma evaluation including cervical spine CT, head CT and bilateral femur XRs were unremarkable. Echo showed EF 60-65% with no evidence of CHF, diastolic dysfunction was not able to be evaluated. Patient was initially started on broad-spectrum antibiotic coverage with IV Zosyn and IV doxycycline in addition to IV dexamethasone. She was seen and evaluated by pulmonology - she was ultimately weaned off of all supplemental oxygen and her hypoxia resolved. All antibiotics were stopped on 06/16; IV dexamethasone was discontinued on 06/21. Rhabdomyolysis - RESOLVED: Unclear exactly how long the patient was down at home prior to arrival. Initial CK in the ED was elevated at 2246, renal and liver functions were stable at time of admission. Patient received ~800mL IVF in the ED; CK continued to trend down and her rhabdomyolysis resolved. Hyponatremia - RESOLVED: Sodium was 121 on admission - nephrology was consulted. Serum osm 253 on admission. Uosm 618. Jayde 10, likely 2/2 fluid overload on background of SIADH per nephrology. Sodium level improved with various combinations of NSS, IV Lasix, hypertonic saline, fluid restriction and D5W to prevent rapid correction under nephrology's guidance. Patient was ultimately transition to oral Lasix 40mg daily on 06/18 and her sodium level remained stable up until time of discharge. She is being discharged on 40mg oral Lasix daily per nephrology's recommendation. Advised to continue 1.5L/day fluid restriction. Strokelike Symptoms on 06/14/2024, CVA Ruled-Out: Senior Scientist documentation regarding this event -> "Around 11:45pm was called to evaluate the patient. Apparently when nursing staff removed her BiPAP it was noticed that her right face drooped. We don't know when she developed facial droop as patient was on BiPAP for long and was lethargic. Patient was alert and oriented x 3 at this time. Speech sometimes slurred (possibly dry mouth). Patient says she had facial paralysis in the past but on left side. Called and verified with son and he doesn't remember patient having paralysis. Called stroke alert. CT head, CTA head and neck were ok. Lavinia telestroke neurologist [Dr. Us] evaluated the patient and thought probably patient might have had small sub cortical stroke." As previously mentioned above, head CT was rather unremarkable except for mild microvascular ischemic changes and mild age-appropriate involutional changes. Neck CTA without evidence of significant vascular abnormalities. 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 Patient did NOT receiving any clot-busting medications such as TNK. Brain MRI on 06/15 without any evidence of an acute infarct. Neurology saw and evaluated the patient. Suspected her weakness was secondary to her general medical condition and not primarily neurologic. No further neurologic workup was warranted. Echo results as per above documentation - no notable shunt. Patient was seen and evaluated by PT/OT whom both recommended rehab placement - she is being discharged to [facility]. Bladder Distention, Acute Urinary Retention - RESOLVED: Pelvis XR on admission noted bladder distention. Vigil catheter was subsequently placed on admission. Urine output remained adequate. Vigil catheter was removed prior to discharge and patient underwent voiding trial with success. Oral Thrush: Likely secondary to IV ABX and steroids. She was started on IV Diflucan x 1 dose on 06/20 in the evening following by an oral Diflucan course in addition to oral nystatin. Patient was restarted on IV Diflucan on 06/22 secondary to worsening oral pain. Magic mouthwash was also added on with some relief. Thrush seems to be improving slowly at time of discharge. Patient agreeable with transitioning back to oral Diflucan in addition to continuing oral nystatin for 5 more days upon discharge. Recent Mechanical Fall: Traumatic workup negative as per above, patient is being discharged to [facility] for further rehabilitation services. Other Chronic Medical Conditions: Raynaud's disease --> Can continue home nifedipine. Disposition: Patient is being discharged to [facility] for rehabilitation services. Patient seen in collaboration with Dr. Bruno. Please see addendum. I spent a total of 65 minutes coordinating, documenting, and providing care for this patient excluding time spent in the performance of separately billed services. This included personally reviewing all current laboratories and imaging studies, medical reconciliation, outpatient chart review and discussion with specialists. This chart was completed in part utilizing Speech Voice Recognition Software. G rammatical errors, random word insertions, pronoun errors, and incomplete sentences are an occasional consequence of this system due to software limitations, ambient noise, and hardware issues. Any formal questions or concerns about the content, text, or information contained within the body of this dictation should be directly addressed to the provider for clarification. Notes For Next Care Provider Patient will need PCP f/u appointment in ~[address] Dyana Blandon at [facility] in [place]. She is currently being treated for oral thrush with 5-day course of nystatin swish/swallow + oral fluconazole. She did previously receive IV Diflucan. Medication Changes From Visit 1.) Lasix 40mg po DAILY added on by nephrology 2/2 hyponatremia. * All other home medications can be continued as previously prescribed. Admission HPI Per Admitting Provider This is a 74 y/o female with Raynaud's, chronic vertigo, thoracic ascending aneurysm, chronic venous insufficiency with history of recurrent venous ulcers previously followed at the wound clinic, and other history as noted below who was brought into the ED today as a trauma alert. Pt was found down at home this morning by police after her neighbors called for a wellness check. Last known well was two days ago. She reported to EMS that she thinks she may have fallen sometime last night trying to get out of bed. Initial sats for EMS were upper 70s to mid 80s so she was placed on O2 up to 15L via NRB. In the ED she was placed on BiPAP as was having trouble tolerating the high-flow oxygen. She has been maintaining sats on the BiPAP. Upon review of her [facility] chart, she was seen by PCP on 06/08 for two days of URI symptoms. COVID test came back positive so Wandy was called in on 06/09. Currently, pt is tolerating BiPAP without difficulty and maintaing her sats. She does not localize any specific pain but overall feels poorly. Admission Exam Per Admitting Provider General: awake, alert, appears comfortable on BiPAP HEENT: no scleral icterus, slightly dry oral mucosa Neck: trachea midline Heart: RRR Lungs: coarse BS with scattered rhonchi bilaterally. Abdomen: soft, NT, +BS Extremities: no pedal edema, radial pulses 2+ bilaterally Skin: few areas of ecchymosis noted on LE Discharge Exam General: NAD, sitting up in bed, very pleasant, eating breakfast, conversing appropriately. A+Ox3, somewhat flat affect. HEENT: Normocephalic, atraumatic. Oral cavity with erythema, white coating consistent with thrush - appears to be improving. Respiratory: Normal respiratory effort, diminished lung sounds throughout, no wheeze/rales/rhonchi. No accessory muscle use. Cardiovascular: Regular rate, rhythm, normal peripheral pulses, no BLE edema. Vessels: No JVD. Abdomen/GI: Normal bowel sounds, soft, nondistended, nontender to palpation in all quadrants. Extremities/Musculoskeletal: No cyanosis or clubbing, extremities motor strength intact, moves all extremities. Neurologic: No overt focal deficits, CN's II-XI not formally tested but appear grossly intact bilaterally. Skin: No rashes, normal color, warm/dry. Updated Medication List Medication Instructions Recorded Confirmed Type aspirin 81 mg tablet,delayed 81 mg PO UD 09/22/20 06/13/24 History release cholecalciferol (vitamin D3) 25 25 mcg PO DAILY 09/22/20 06/13/24 History mcg (1,000 unit) capsule nifedipine 90 mg tablet,extended 90 mg PO QAM 10/20/20 06/13/24 History release valacyclovir 1 gram tablet 2,000 mg PO Q12H PRN Cold Sores 10/20/20 06/13/24 History meclizine 25 mg tablet 25 mg PO TID PRN dizziness #20 tabs 09/22/21 06/13/24 Rx ascorbic acid (vitamin C) 500 mg 500 mg PO DAILY 11/18/22 06/13/24 History tablet (Vitamin C) calcium carbonate 500 mg PO DAILY 11/18/22 06/13/24 History cetirizine 10 mg tablet (Zyrtec) 10 mg PO DAILY PRN Other 11/18/22 06/13/24 History lactase 9,000 unit chewable tablet 9,000 unit PO AC PRN .Intolerance 11/18/22 06/13/24 History (Lactaid Fast Act) sennosides 8.6 mg tablet (senna) 8.6 mg PO UD 11/18/22 06/13/24 History fluconazole 200 mg tablet 200 mg PO DAILY 5 days #5 tabs 06/24/24 Rx furosemide 40 mg tablet 40 mg PO DAILY #30 tabs 06/24/24 Rx nystatin 100,000 unit/mL oral 5 ml PO QID 5 days #100 mL 06/24/24 Rx suspension potassium chloride 10 mEq 20 meq (2 x 10 mEq) PO BID #60 caps 06/24/24 Rx capsule,extended release Hospital Stay Data Consultations 06/13/24 12:19 ED Decision to Admit Stat 06/13/24 14:36 Consult Nephrology Routine 06/13/24 17:07 Consult Pulmonology Routine 06/16/24 08:00 Consult Neurology Routine Diagnostic Imagining Performed 06/13/24 10:41 CT abd pelvis IV con only Stat 06/13/24 10:42 CT cervical spine wo con Stat CT head/brain wo con Stat 06/13/24 10:48 CT chest diagnostic w con Stat 06/15/24 00:09 CT head/brain wo con Stat CTA head w con [CT angio head w con] Stat CTA neck with con [CT angio neck with con] Stat 06/15/24 09:00 MR brain wo/w con Routine Pending Results Patient Have Any Pending Studies at Discharge: No Discharge Instructions Given to Patient (Per Discharging Provider) Aisha, You will need to follow-up with your primary care provider within 1 week of discharge - this will be arranged by Latricia. You are being discharged on a new Lasix prescription. You are also being discharged on an additional 5-day course of oral nystatin swish/swallow and oral fluconazole for your oral thrush. Please continue to take your potassium supplement as prescribed. Please take good care of yourself. It has been a pleasure taking care of you. If you have any questions regarding your recent hospitalization please contact [facility] and request Jazmine Mixist @ [phone]. Total Time Total Time Spent Total Time Spent (In Minutes): 65 Supervising Physician Co-Signing Physician Notes I have seen and discussed the case with the collaborating advanced practitioner. I agree with the above Discharge summary. I have reviewed and confirmed the patients medical history, the findings on physical examination, and the patients diagnosis and treatment plan with Torri MEEHAN and agree with the information documented. Patient to continue fluconazole and nystatin s/s for 5 more days. Patient doing well and eager for d/c on day of exam. Urinating without issues and increased po intake. I spent a total of 15 minutes coordinating, documenting, and providing care for this patient excluding time spent in the performance of separately billed services. All of the aforementioned completed outside of collaborating with the assigned advanced practitioner for a full treatment plan. I have reviewed the advanced practitioner's documentation, and I agree with, and take responsibility for the plan of care
[2024-06-24 12:06] VITALS: BP 99/63; PULSE 66
== END 2024-06-24 13:09 | DRG 177 ==
LOC: ED 10:29 → SUATTDRO 13:53 → 2E 13:53 → 3E 06-19 18:12